=== PATIENT | female | born 1935 | race Hispanic/Latino ===

== ENCOUNTER 2020-08-05 09:16 | Emergency (ER) | payer OTHER ==
[2020-08-05] MEDS ORDERED: ONDANSETRON 4 MG/2 ML VIAL ONE (10:56)
[2020-08-05] MEDS ORDERED: NA CHLORIDE 0.9% 250 ML ONE (10:56)
[2020-08-05] MEDS ORDERED: DICYCLOMINE HCL 10 MG CAP ONE (10:57)
[2020-08-05] MEDS ORDERED: DIPHENOX/ATROP SULF 1 TAB PO ONE (10:57)
[2020-08-05 13:22] LABS: Absolute Lymphocytes (CBC) 1.7 K/uL (0.7-4.9); Basophils % 0.4 % (0-1.3); Lymphocytes % 14.3 % (15.3-44.8); MPV 8.6 fL (7.6-11.3); RBC Red Blood Cell Count 3.81 M/uL (3.86-4.86)
[2020-08-05 13:39] LABS: Albumin 3.2 g/dL (3.4-5.0); Bilirubin Direct 0.2 mg/dL (0-0.2); Bilirubin Total 0.6 mg/dL (0.2-1.0); Potassium 3.4 mmol/L (3.5-5.1); Protein, Total 6.7 g/dL (6.4-8.2)
--- NOTE | 2020-08-05 14:11 | EDPHYS ---
Physician Documentation [facility] Name: Pam Llamas Age: 84 yrs Sex: Female : 1935 Arrival Date: 08/05/2020 Time: 09:22 Bed 13 Private MD: ED Physician Luis Elder HPI: 08/06 10:06 This 84 yrs old Female presents to ER via Ambulatory with complaints of kdr Diarrhea, Vomiting. 10:06 The patient presents to the emergency department with nausea, that is mild, that is kdr moderate, vomiting, that is intermittent, diarrhea, that is intermittent, abdominal pain, of the abdomen diffusely, described as achy, crampy, and does not radiate. Onset: The symptoms/episode began/occurred suddenly, at 01:00. Possible causes: unknown. The symptoms are aggravated by nothing. The symptoms are alleviated by nothing. Associated signs and symptoms: Pertinent positives: abdominal pain, diarrhea, nausea, vomiting. Severity of symptoms: At their worst the symptoms were mild in the emergency department the symptoms have improved mildly. The patient has experienced similar episodes in the past, a few times. The patient has been recently seen by a physician: The patient is under care for Ovarian CA. Historical: - Allergies: 08/05 10:02 Coumadin; dm5 10:02 "adult aspirin"; dm5 - Home Meds: 10:02 levothyroxine 88 mcg tab 1 tab once daily [Active]; torsemide 20 mg oral tab 1 tab once dm5 daily [Active]; irbesartan 150 mg oral tab 1 tab once daily [Active]; Plavix 75 mg Oral tab 1 tab once daily [Active]; aspirin 81 mg Oral chew 1 tab once daily [Active]; nitrofurantoin macrocrystal 50 mg Oral cap 1 cap once daily [Active]; simvastatin 10 mg Oral tab 1 tab once daily [Active]; - PMHx: 10:02 Hypothyroidism; CVA; High Cholesterol; dm5 - PSHx: 10:02 Kidney stents; dm5 - Immunization history:: Adult Immunizations up to date. - Social history:: Smoking status: Patient denies any tobacco usage or history of. ROS: 08/06 10:06 Constitutional: Negative for fever, chills, and weight loss, Eyes: Negative for injury, kdr pain, redness, and discharge, ENT: Negative for injury, pain, and discharge, Neck: Negative for injury, pain, and swelling, Cardiovascular: Negative for chest pain, palpitations, and edema, Respiratory: Negative for shortness of breath, cough, wheezing, and pleuritic chest pain, Back: Negative for injury and pain, : Negative for injury, bleeding, discharge, and swelling, MS/Extremity: Negative for injury and deformity, Skin: Negative for injury, rash, and discoloration, Neuro: Negative for headache, weakness, numbness, tingling, and seizure activity. Psych: Negative for depression, anxiety, suicide ideation, homicidal ideation, and hallucinations, Allergy/Immunology: Negative for hives, rash, and allergies, Endocrine: Negative for neck swelling, polydipsia, polyuria, polyphagia, and marked weight changes, Hematologic/Lymphatic: Negative for swollen nodes, abnormal bleeding, and unusual bruising. Abdomen/GI: Positive for abdominal pain, nausea, vomiting, and diarrhea, Negative for abdominal distension, anorexia, dysphagia, hematemesis, black/tarry stool, rectal pain, rectal bleeding, bowel incontinence. Exam: 10:06 Constitutional: This is a well developed, well nourished patient who is awake, alert, kdr and in no acute distress. Head/Face: Normocephalic, atraumatic. Eyes: Pupils equal round and reactive to light, extra-ocular motions intact. Lids and lashes normal. Conjunctiva and sclera are non-icteric and not injected. Cornea within normal limits. Periorbital areas with no swelling, redness, or edema. Neck: Trachea midline, no thyromegaly or masses palpated, and no cervical lymphadenopathy. Supple, full range of motion without nuchal rigidity, or vertebral point tenderness. No Meningismus. Chest/axilla: Normal chest wall appearance and motion. Nontender with no deformity. No lesions are appreciated. Cardiovascular: Regular rate and rhythm with a normal S1 and S2. No gallops, murmurs, or rubs. Normal PMI, no JVD. No pulse deficits. Respiratory: Lungs have equal breath sounds bilaterally, clear to auscultation and percussion. No rales, rhonchi or wheezes noted. No increased work of breathing, no retractions or nasal flaring. Back: No spinal tenderness. No costovertebral tenderness. Full range of motion. Skin: Warm, dry with normal turgor. Normal color with no rashes, no lesions, and no evidence of cellulitis. MS/ Extremity: Pulses equal, no cyanosis. Neurovascular intact. Full, normal range of motion. Neuro: Awake and alert, GCS 15, oriented to person, place, time, and situation. Cranial nerves II-XII grossly intact. Motor strength 5/5 in all extremities. Sensory grossly intact. Cerebellar exam normal. Normal gait. Psych: Awake, alert, with orientation to person, place and time. Behavior, mood, and affect are within normal limits. 10:06 Abdomen/GI: Inspection: abdomen appears normal, Bowel sounds: diminished, in all quadrants, Palpation: soft, in all quadrants, mild abdominal tenderness, in the abdomen diffusely, mass, that is hard, that is nontender, of the right lower quadrant, rebound tenderness, is not appreciated, voluntary guarding, is not appreciated, tenderness to percussion, is not appreciated. Vital Signs: 08/05 09:52 BP 153 / 65; Pulse 71; Resp 18; Temp 97.7(O); Pulse Ox 100% on R/A; Weight 62.6 kg; dm5 Height 5 ft. 0 in. (152.40 cm); 11:27 BP 169 / 75; Pulse 69; Resp 16; Pulse Ox 100% ; bp 12:42 BP 115 / 82; Pulse 56; Resp 16; Pulse Ox 100% ; bp 13:26 BP 157 / 75; Pulse 60; Resp 16; Pulse Ox 100% ; bp 14:43 BP 143 / 73; Pulse 62; Resp 17; Temp 97.8; Pulse Ox 99% ; bp 09:52 Body Mass Index 26.95 (62.60 kg, 152.40 cm) dm5 MDM: 14:10 Patient medically screened. kdr 08/06 10:06 Data reviewed: vital signs, nurses notes, lab test result(s), radiologic studies. kdr Counseling: I had a detailed discussion with the patient and/or guardian regarding: the historical points, exam findings, and any diagnostic results supporting the discharge/admit diagnosis, lab results, radiology results, the need for outpatient follow up. 08/05 10:02 Order name: Basic Metabolic Panel; Complete Time: 14:10 kdr 08/05 10: Order name: CBC with Diff; Complete Time: 13:33 kdr 08/05 10:02 Order name: Hepatic Function; Complete Time: 14:10 kdr 08/05 10:02 Order name: Lipase; Complete Time: 14:10 kdr 08/05 11:04 Order name: Abdomen EDMS 08/05 10:02 Order name: IV Saline Lock; Complete Time: 10:29 kdr 08/05 10:02 Order name: Labs collected and sent; Complete Time: 10:29 kdr 08/05 10:38 Order name: Labs - recollect needed; Complete Time: 12:44 mt 08/05 12:57 Order name: Labs - recollect needed; Complete Time: 13:50 mt Administered Medications: 08/05 11:26 Drug: LoMOTIL 2 tabs Route: PO; bp 13:50 Follow up: Response: No adverse reaction; Marked relief of symptoms bp 11:26 Drug: Bentyl 20 mg Route: PO; bp 13:50 Follow up: Response: No adverse reaction; Pain is decreased bp 12:44 Drug: NS 0.9% 250 ml Route: IV; Rate: bolus; Site: right upper arm; bp 13:50 Follow up: IV Status: Completed infusion; IV Intake: 250ml bp 12:45 Drug: Zofran (Ondansetron) 4 mg Route: IVP; Site: right upper arm; bp 13:50 Follow up: Response: No adverse reaction; Marked relief of symptoms bp Disposition: 08/05/20 14:10 Discharged to Home. Impression: Diarrhea, unspecified, Nausea and vomiting, Renal Insufficiency. - Condition is Stable. - Discharge Instructions: Nausea and Vomiting, Adult, [id number], Hydronephrosis, Diarrhea, Adult, [id number]. - Prescriptions for Lomotil 2.5- 0.025 mg Oral Tablet - take 2 tablet by ORAL route once daily As needed; 20 tablet. Bentyl 20 mg Oral Tablet - take 1 tablet by ORAL route every 6 hours As needed; 20 tablet. - Medication Reconciliation Form, Thank You Letter form. - Follow up: Private Physician; When: 2 - 3 days; Reason: If symptoms return, Further diagnostic work-up, Recheck today's complaints, Continuance of care, Re-evaluation by your physician. - Problem is new. - Symptoms have improved. Signatures: Dispatcher [employer] [facility] Shelli Jade, RN RN dm5 Luis Elder MD MD kdr [place], [facility] Marcial Encarnacion, RN RN bp Corrections: (The following items were deleted from the chart) 11:04 10:03 Abdomen Pelvis W Con+CT.RAD.BRZ ordered. EDRI EDMS 14:11 14:10 08/05/2020 14:10 Discharged to Home. Impression: Diarrhea, unspecified; Nausea kdr and vomiting. Condition is Stable. Forms are Medication Reconciliation Form, Thank You Letter, Antibiotic Education, Prescription Opioid Use. Follow up: Private Physician; When: 2 - 3 days; Reason: If symptoms return, Further diagnostic work-up, Recheck today's complaints, Continuance of care, Re-evaluation by your physician. Problem is new. Symptoms have improved. kdr 14:46 14:11 08/05/2020 14:10 Discharged to Home. Impression: Diarrhea, unspecified; Nausea bp and vomiting; Renal Insufficiency. Condition is Stable. Forms are Medication Reconciliation Form, Thank You Letter, Antibiotic Education, Prescription Opioid Use. Follow up: Private Physician; When: 2 - 3 days; Reason: If symptoms return, Further diagnostic work-up, Recheck today's complaints, Continuance of care, Re-evaluation by your physician. Problem is new. Symptoms have improved. kdr
--- NOTE | 2020-08-05 14:11 | ER ---
Nurse's Notes [facility] Name: Pam Llamas Age: 84 yrs Sex: Female : 1935 Arrival Date: 08/05/2020 Time: 09:22 Bed 13 Private MD: Diagnosis: Diarrhea, unspecified;Nausea and vomiting;Renal Insufficiency Presentation: 08/05 09:52 Chief complaint: Patient states: abdominal pain and diarrhea that started at 0100 this dm5 morning. pt has history of ovarian ca. Coronavirus screen: Client denies travel out of the [place] in the last 14 days. diarrhea, nausea, Client presents with at least one sign or symptom that may indicate coronavirus-19. Standard/surgical mask placed on the client. Provider contacted for isolation considerations. Ebola Screen: Patient negative for fever greater than or equal to 101.5 degrees Fahrenheit, and additional compatible Ebola Virus Disease symptoms Patient denies exposure to infectious person. Patient denies travel to an Ebola-affected area in the 21 days before illness onset. No symptoms or risks identified at this time. Initial Sepsis Screen: Does the patient meet any 2 criteria? No. Patient's initial sepsis screen is negative. Does the patient have a suspected source of infection? Yes: Acute abdominal pain. Risk Assessment: Do you want to hurt yourself or someone else? Patient reports no desire to harm self or others. Onset of symptoms was August 05, 2020. 09:52 Method Of Arrival: Ambulatory dm5 09:52 Acuity: ELI 3 dm5 Triage Assessment: 10:00 General: Appears in no apparent distress. uncomfortable, Behavior is cooperative, bp appropriate for age, anxious. Pain: Complains of pain in abdomen. EENT: No deficits noted. Neuro: No deficits noted. Cardiovascular: No deficits noted. Respiratory: No deficits noted. GI: Reports diarrhea, nausea, vomiting. : No signs and/or symptoms were reported regarding the genitourinary system. Derm: No deficits noted. Musculoskeletal: No deficits noted. Historical: - Allergies: 10:02 Coumadin; dm5 10:02 "adult aspirin"; dm5 - Home Meds: 10:02 levothyroxine 88 mcg tab 1 tab once daily [Active]; torsemide 20 mg oral tab 1 tab once dm5 daily [Active]; irbesartan 150 mg oral tab 1 tab once daily [Active]; Plavix 75 mg Oral tab 1 tab once daily [Active]; aspirin 81 mg Oral chew 1 tab once daily [Active]; nitrofurantoin macrocrystal 50 mg Oral cap 1 cap once daily [Active]; simvastatin 10 mg Oral tab 1 tab once daily [Active]; - PMHx: 10:02 Hypothyroidism; CVA; High Cholesterol; dm5 - PSHx: 10:02 Kidney stents; dm5 - Immunization history:: Adult Immunizations up to date. - Social history:: Smoking status: Patient denies any tobacco usage or history of. Screenin:00 Abuse screen: Denies threats or abuse. Denies injuries from another. Nutritional bp screening: No deficits noted. Tuberculosis screening: No symptoms or risk factors identified. Fall Risk None identified. Assessment: 10:00 General: SEE TRIAGE NOTE. bp 10:25 Reassessment: PT TO CT. bp 11:07 Reassessment: PIV FAILED IN CT. PT REFUSING FURTHER VENIPUNCTURE. bp 11:28 Reassessment: PICC NURSE CONTACTED FOR PLACEMENT AFTER PT COUNSELED BY . bp 11:47 Reassessment: VASCULAR ACCESS NURSE AT B/S. bp 12:43 Reassessment: IVF INFUSING. ALL CURRENT ORDERS COMPLETED. bp 13:26 Reassessment: PHLEBOTOMY CONTACTED FOR 2ND REDRAW. bp 14:43 Reassessment: PT D/C HOME AMBULATORY WITH FAMILY, DX WITH DIARRHEA AND RENAL bp INSUFFICIENCY. Vital Signs: 09:52 BP 153 / 65; Pulse 71; Resp 18; Temp 97.7(O); Pulse Ox 100% on R/A; Weight 62.6 kg; dm5 Height 5 ft. 0 in. (152.40 cm); 11:27 BP 169 / 75; Pulse 69; Resp 16; Pulse Ox 100% ; bp 12:42 BP 115 / 82; Pulse 56; Resp 16; Pulse Ox 100% ; bp 13:26 BP 157 / 75; Pulse 60; Resp 16; Pulse Ox 100% ; bp 14:43 BP 143 / 73; Pulse 62; Resp 17; Temp 97.8; Pulse Ox 99% ; bp 09:52 Body Mass Index 26.95 (62.60 kg, 152.40 cm) dm5 ED Course: 09:22 Patient arrived in ED. ds1 09:34 Luis Elder MD is Attending Physician. kdr 09:55 Triage completed. dm5 10:00 Patient has correct armband on for positive identification. Bed in low position. Call bp light in reach. Side rails up X2. Adult w/ patient. 10:03 Arm band placed on right wrist. Patient placed in an exam room, on pulse oximetry. dm5 10:14 Marcial Encarnacion, RN is Primary Nurse. bp 10:24 Inserted saline lock: 20 gauge in right antecubital area, using aseptic technique. bp Blood collected. 11:06 Abdomen In Process Unspecified. EDMS 12:40 Inserted saline lock: 20 gauge in right upper arm, using aseptic technique. 10CM bp MIDLINE, FIRST ATTEMPT BY AG. 14:44 No provider procedures requiring assistance completed. bp 14:45 IV discontinued, intact, bleeding controlled, No redness/swelling at site. Pressure bp dressing applied. Administered Medications: 11:26 Drug: LoMOTIL 2 tabs Route: PO; bp 13:50 Follow up: Response: No adverse reaction; Marked relief of symptoms bp 11:26 Drug: Bentyl 20 mg Route: PO; bp 13:50 Follow up: Response: No adverse reaction; Pain is decreased bp 12:44 Drug: NS 0.9% 250 ml Route: IV; Rate: bolus; Site: right upper arm; bp 13:50 Follow up: IV Status: Completed infusion; IV Intake: 250ml bp 12:45 Drug: Zofran (Ondansetron) 4 mg Route: IVP; Site: right upper arm; bp 13:50 Follow up: Response: No adverse reaction; Marked relief of symptoms bp Intake: 13:50 IV: 250ml; Total: 250ml. bp Outcome: 14:10 Discharge ordered by . kdr 14:44 Discharged to home ambulatory, with family. bp 14:44 Condition: stable 14:44 Discharge instructions given to patient, family, Instructed on discharge instructions, follow up and referral plans. medication usage, Demonstrated understanding of instructions, follow-up care, medications, Prescriptions given X 2. 14:46 Patient left the ED. bp Signatures: Dispatcher [employer] EDMS Shelli Jade RN RN dm5 Luis Elder MD MD [facility] Sarah Cheung ds1 Marcial Encarnacion RN RN bp Poppy Brito 2 Corrections: (The following items were deleted from the chart) 11:04 10:29 To radiology for Abdomen Pelvis W Con+CT.RAD.BRZ. bp EDMS 14:46 12:40 Inserted saline lock: 20 gauge in right upper arm, using aseptic technique. Blood bp collected. 20g 10cm midline placement. first attempt ag2
[2020-08-05 15:38] VITALS: BP 143/73; TEMP 97.8; O2SAT 99
--- NOTE | 2020-08-06 11:17 | RAD REPORT ---
EXAM DESCRIPTION: CT - Abdomen Pelvis Wo Contrast - 08/05/2020 10:18 pm CLINICAL HISTORY: Diarrhea;Abd pain history of pelvic malignancy, history of left ureteral stent COMPARISON: No comparisons TECHNIQUE: Axial [address] imaging of the abdomen and pelvis was performed without IV contrast. No IV contrast was given because of allergy, abnormal renal function, patient refusal or physician re quest. No oral contrast administered. All CT scans are performed using dose optimization technique as appropriate and may include automated exposure control or mA/KV adjustment according to patient size. FINDINGS: No suspicious findings in the lung bases. The liver, spleen and pancreas show no suspicious findings on non-contrast imaging. Gallbladder and b iliary tree are also without suspicious finding. Severe left-side and moderately severe right-sided hydronephrosis and hydroureter present. Pigtail st ent is in place in the left collecting system. Cortical thinning of the left renal parenchyma noted. Function cannot be assessed in the noncontrast setting. No significant adrenal finding. Isodense raheem al masses and pyelonephritis cannot be excluded in the absence of IV contrast. Urinary bladder is mos tly contracted. No dilated bowel loops or bowel wall thickening. No free air, free fluid or pneumatosis. There is mi ld stranding in the presacral fatty tissues a large 16 centimeter diameter cystic mass fills the pelv is. There is a thickening or soft tissue mass component seen along the anterior inferior aspect. No o mental thickening. No abnormal lymphadenopathy identified. No suspicious bony findings. Arterial tree calcifications are present. IVC filter is in place. Report was delayed due to malfunctions of the shipping and receiving system. Images were reviewed and findings telephoned to the referring clinician at the time of the study. IMPRESSION: Large 16 centimeter mostly cystic mass filling the pelvis. It is believed the patient perez s a known ovarian malignancy. No prior imaging is available to establish growth or stability of the l arge cystic mass. Small amount of stranding is seen in the pelvic fat anterior to the sacrum. No omental thickening or abnormal lymphadenopathy. Moderately severe right-sided and severe left-sided hydronephrosis and hydroureter. There is atrophy of the left renal cortex. Pigtail stent is in the left collecting system. Full assessment is limited is the absence of IV contrast.
== END 2020-08-05 14:46 | disposition home or self-care (01) ==
LOC: ER 09:16
DX: R19.7 Diarrhea, unspecified (principal); N28.9 Disorder of kidney and ureter, unspecified; E78.00 Pure hypercholesterolemia, unspecified; E03.9 Hypothyroidism, unspecified; Z79.82 Long term (current) use of aspirin; Z79.01 Long term (current) use of anticoagulants; Z85.43 Personal history of malignant neoplasm of ovary; Z88.6 Allergy status to analgesic agent; Z88.8 Allergy status to other drugs, medicaments and biological substances
CPT/HCPCS: 96365; 85025; 80048; 36415; 82565; 80076; 83690; 74176; 96375; 99284; J7050; J2405

== ENCOUNTER 2020-11-21 17:35 | Emergency (ER) | payer OTHER ==
--- NOTE | 2020-11-21 18:24 | RAD REPORT ---
EXAM DESCRIPTION: CT - Head Brain Wo Cont - 11/21/2020 6:11 pm CLINICAL HISTORY: WEAKNESS, altered mental status, history of CVA COMPARISON: <Comparisons> TECHNIQUE: Axial 5 mm thick images of the head were obtained without IV contrast. All CT scans are performed using dose optimization technique as appropriate and may include automated exposure control or mA/KV adjustment according to patient size. FINDINGS: No intracranial hemorrhage, mass, edema or shift of mid-line structures. No acute cortical based infarction. No cortical edema or sulcal effacement. Encephalomalacia is present in the medial left occipital lobe from prior CVA. Atrophy changes are present, mild for age, with ventricles in pro portion. Mild to moderate chronic ischemic change present in the cerebral white matter. Arterial and physiologic calcifications are present. Mastoid air cells and visualized portions of the paranasal sinuses are clear. No acute bony findings. IMPRESSION: No hemorrhage, acute cortical based infarction or other acute intracranial finding. Atrophy, chronic ischemic changes and old left occipital lobe CVA changes are present. Chronic ischemic changes can mask nonhemorrhagic acute infarction. MR brain followup can be obtained if there is ongoing concern for acute ischemia.
[2020-11-21] MEDS ORDERED: NA CHLORIDE 0.9% 500 ML ONE ×2 (18:27→19:32)
[2020-11-21] MEDS ORDERED: FOLIC ACID 5 MG/ML VIAL ONE (18:28)
[2020-11-21 18:32] LABS: Absolute Lymphocytes (CBC) 2.5 K/uL (0.7-4.9); Basophils % 1.3 % (0-1.3); Hematocrit 37.2 % (36.0-45.0); Lymphocytes % 27.6 % (15.3-44.8); MPV 8.2 fL (7.6-11.3); RBC Red Blood Cell Count 4.25 M/uL (3.86-4.86)
--- NOTE | 2020-11-21 18:32 | RAD REPORT ---
EXAM DESCRIPTION: RAD - Chest Single View - 11/21/2020 6:09 pm CLINICAL HISTORY: AMS, shortness of breath COMPARISON: None TECHNIQUE: AP portable chest image was obtained 11/21/2020 6:09 pm . FINDINGS: Lung volumes are low. No peripheral mass or consolidation. Heart size and vasculature with in normal limits for portable imaging. Interstitial pattern is prominent throughout the lung sanches. Baseline pattern is unknown the patient . This is most likely chronic fibrosis. Minimal edema or infiltrate could be masked. Heart and vasculature are normal. No measurable pleural effusion and no pneumothorax. No acute bony a bnormality seen. No acute aortic findings suspected. IMPRESSION: Diffusely prominent interstitial markings throughout both lung sanches. No comparison is available. Fibrotic changes favored but minimal interstitial edema or infiltrate could be present. No peripheral mass or consolidation.
[2020-11-21 18:37] LABS: Protime INR 0.97
[2020-11-21 18:55] LABS: Potassium 3.8 mmol/L (3.5-5.1); Troponin (Emerg Dept Use Only) 0.03 ng/mL (0.0-0.045)
--- NOTE | 2020-11-21 18:58 | EDPHYS ---
Physician Documentation [facility] Name: Pam Llamas Age: 84 yrs Sex: Female : 1935 Arrival Date: 11/21/2020 Time: 17:39 Bed 6 Private MD: ED Physician Dex Currie HPI: 11/21 18:25 This 84 yrs old Female presents to ER via EMS with complaints of S/S of pm1 Possible Stroke. 18:25 The patient's problem is reported as weakness, in the right upper extremity, speech. pm1 Onset: The symptoms/episode began/occurred 1300. Patient last known normal at 1000 this AM. At 1300 she appeared groggy and difficult to arouse by . At 1600 she was slumped over to the right side in her chair while she was eating and had difficulty moving her right arm. She also had difficulty communicating at 1600. Historical: - Allergies: 17:44 "adult aspirin"; em 17:44 Coumadin; em - Home Meds: 18:05 Plavix 75 mg Oral tab 1 tab once daily [Active]; nitrofurantoin macrocrystal 50 mg Oral em cap 1 cap once daily [Active]; simvastatin 10 mg Oral tab 1 tab once daily [Active]; irbesartan 150 mg Oral tab 1 tab once daily [Active]; levothyroxine 88 mcg tab 1 tab once daily [Active]; torsemide 20 mg Oral tab 1 tab once daily [Active]; - PMHx: 17:44 CVA; High Cholesterol; Hypothyroidism; em - PSHx: 17:44 Kidney stents; Hysterectomy; em - Immunization history:: Adult Immunizations unknown. - Social history:: Smoking status: unknown. ROS: 18:25 Constitutional: Negative for fever, chills, and weight loss, Eyes: Negative for injury, pm1 pain, redness, and discharge, Cardiovascular: Negative for chest pain, palpitations, and edema, Respiratory: Negative for shortness of breath, cough, wheezing, and pleuritic chest pain, Abdomen/GI: Negative for abdominal pain, nausea, vomiting, diarrhea, and constipation, Back: Negative for injury and pain, : Negative for injury, bleeding, discharge, and swelling, MS/Extremity: Negative for injury and deformity, Skin: Negative for injury, rash, and discoloration. 18:25 Neuro: Positive for speech changes, weakness, of the right arm. Exam: 18:25 Constitutional: This is a well developed, well nourished patient who is awake, alert, pm1 and in no acute distress. Head/Face: Normocephalic, atraumatic. Eyes: Pupils equal round and reactive to light, extra-ocular motions intact. Lids and lashes normal. Conjunctiva and sclera are non-icteric and not injected. Cornea within normal limits. Periorbital areas with no swelling, redness, or edema. ENT: Nares patent. No nasal discharge, no septal abnormalities noted. Tympanic membranes are normal and external auditory canals are clear. Oropharynx with no redness, swelling, or masses, exudates, or evidence of obstruction, uvula midline. Mucous membranes moist. 18:25 Abdomen/GI: Soft, non-tender, with normal bowel sounds. No distension or tympany. No guarding or rebound. No evidence of tenderness throughout. Back: No spinal tenderness. No costovertebral tenderness. Full range of motion. Skin: Warm, dry with normal turgor. Normal color with no rashes, no lesions, and no evidence of cellulitis. MS/ Extremity: Pulses equal, no cyanosis. Neurovascular intact. Full, normal range of motion. 18:25 Cardiovascular: Rate: normal, Rhythm: irregular, Pulses: no pulse deficits are appreciated, Heart sounds: normal, Edema: is not appreciated. 18:25 Respiratory: Exam negative for acute changes, respiratory distress, shortness of breath, Breath sounds: are clear throughout. 18:25 Neuro: Orientation: to person, place, Cerebellar function: slow but able to perform bilaterally, Motor: moves all fours, drift present to RLE, Sensation: no obvious gross deficits. 18:40 Radiologist reports: CT head: No hemorrhage, acute cortical based infarction or other pm1 acute intracranial finding. Atrophy, chronic ischemic changes and old left occipital lobe CVA changes are present Vital Signs: 17:40 BP 179 / 104; Pulse 74; Resp 18; Temp 98.3(O); Pulse Ox 99% on R/A; Pain 0/10; em 19:53 BP 194 / 94; Pulse 76; Resp 18; Pulse Ox 100% on R/A; mg2 20:40 BP 195 / 93; Pulse 71; Resp 17; Pulse Ox 99% ; rr5 20:48 BP 200 / 110; rr5 22:00 BP 176 / 86; Pulse 64; Resp 18; Pulse Ox 100% on R/A; mg2 23:00 BP 177 / 89; Pulse 60; Resp 19; Pulse Ox 99% ; rr5 NIH Stroke Scale Scores: 17:50 NIHSS Score: 4 em 18:25 NIHSS Score: 4 pm1 20:25 NIHSS Score: 2 pm1 MDM: 17:53 Patient medically screened. pm1 17:54 Data reviewed: vital signs. pm1 17:54 ED course: Patient's last known normal at 1000 this AM. Patient is not a TPA candidate. pm1 18:52 Physician consultation: Austin Gomez MD was called at 18:50, was contacted at 18:52, pm1 regarding consult, patient's condition, after a discussion of the case, a recommendation for transfer for higher level of care is made, would like further tests performed, CTA, Transfer for MRI and possible intraarterial intervention within 24 hour treatment window. 20:07 Physician consultation: Neurologchristine Rivero was contacted at 20:09, regarding pm1 regarding transfer, to [facility]. patient's condition, and will see patient. 20:34 Physician consultation: MD Sis Tucker was contacted at 20:34, regarding pm1 regarding transfer, patient's condition, and will see patient. 20:40 ED course: patient's NIHSS score improved from 4 to 2. Patient's speech is more pm1 understandable but she has some expressive aphasia with describing objects. Patient is now able to read the sentences but had difficulty with saying huckleberry and transition advisor. 11/21 17:48 Order name: Basic Metabolic Panel; Complete Time: 18:58 pm1 11/21 17:48 Order name: CBC with Diff; Complete Time: 18:37 pm1 11/21 17:48 Order name: Protime (+inr); Complete Time: 18:42 pm1 11/21 17:48 Order name: Ptt, Activated; Complete Time: 18:42 pm1 11/21 17:48 Order name: Troponin (emerg Dept Use Only); Complete Time: 18:58 pm1 11/21 17:48 Order name: Urine Microscopic Only pm1 11/21 17:48 Order name: CT Head Brain wo Cont; Complete Time: 18:37 pm1 11/21 17:50 Order name: Chest Single View XRAY; Complete Time: 18:37 pm1 11/21 17:50 Order name: TSH pm1 11/21 17:51 Order name: Thyroid Stimulating Hormone; Complete Time: 19:21 EDMS 11/21 19:06 Order name: T4 Free; Complete Time: 19:21 EDMS 11/21 20:37 Order name: Urine Dipstick--Ancillary (enter results); Complete Time: 20:44 2 11/21 21:10 Order name: SARS-COV-2 RT PCR EDMS 11/21 17:48 Order name: EKG; Complete Time: 17:49 pm1 11/21 17:48 Order name: Accucheck; Complete Time: 17:59 pm1 11/21 17:48 Order name: Cardiac monitoring; Complete Time: 17:59 pm11/21 17:48 Order name: EKG - Nurse/Tech; Complete Time: 17:59 pm1 11/21 17:48 Order name: IV Saline Lock; Complete Time: 17:59 pm11/21 17:48 Order name: Labs collected and sent; Complete Time: 17:59 pm11/21 17:48 Order name: NPO; Complete Time: 17:59 pm11/21 17:48 Order name: O2 Per Protocol; Complete Time: 17:59 pm11/21 17:48 Order name: O2 Sat Monitoring; Complete Time: 17:59 pm11/21 18:52 Order name: CT Head Angio; Complete Time: 19:54 pm1 11/21 19:04 Order name: CT Neck Angio; Complete Time: 19:57 pm11/21 17:48 Order name: Stroke Swallow Screen; Complete Time: 18:29 pm1 11/21 17:48 Order name: Urine Dipstick-Ancillary (obtain specimen); Complete Time: 22:18 pm1 Administered Medications: 18:24 Drug: NS 0.9% 500 ml Route: IV; Rate: bolus; Site: left antecubital; em 19:52 Follow up: Response: No adverse reaction; IV Status: Completed infusion; IV Intake: mg2 500ml 18:24 Drug: foLIC Acid 1 mg Route: IVPB; Site: left antecubital; em 19:52 Follow up: Response: No adverse reaction; IV Status: Completed infusion mg2 19:54 Drug: NS 0.9% 500 ml Route: IV; Rate: bolus; Site: left antecubital; rr5 20:50 Follow up: Response: No adverse reaction; IV Status: Completed infusion; IV Intake: rr5 500ml 20:05 Drug: Labetalol 5 mg Route: IVP; Infused Over: 2 mins; Site: left antecubital; mg2 20:48 Follow up: Response: No adverse reaction; Blood pressure is unchanged rr5 22:18 Follow up: Response: No adverse reaction mg2 20:48 Drug: Labetalol 5 mg Route: IVP; Infused Over: 2 mins; Site: left antecubital; rr5 22:00 Follow up: Response: No adverse reaction; Blood pressure is lowered rr5 Disposition: 11/22 20:07 Co-signature as Attending Physician, Dex Currie MD. ma2 Disposition: 11/21/20 18:57 Transfer ordered to [facility]. Diagnosis is Cerebral infarction. - Reason for transfer: Higher level of care. - Accepting physician is [facility]. - Condition is Stable. - Problem is new. - Symptoms have improved. NIH Stroke Scale - NIH Stroke Score Date: 11/21/2020 Time: 17:50 Total Score = 4 1a. Level of Consciousness (LOC) - 0(Alert) 1b. Level of Consciousness (LOC) (Year \\T\\ Age) - 1(One) 1c. LOC Commands (Open \\T\\ Closes Eyes/Wellness Nurse Rn) - 0(Both) 2. Best Gaze (Lateral Gaze Paresis) - 0(Normal) 3. Visual Field Loss - 0(No visual loss) 4. Facial Palsy - 0(Normal) 5a. Left Arm: Motor (10-second hold) - 0(No drift) 5b. Right Arm: Motor (10-second hold) - 0(No drift) 6a. Left Leg: Motor (5-second hold - always test supine) - 0(No drift) 6b. Right Leg: Motor (5-second hold - always test supine) - 1(Drift) 7. Limb Ataxia (finger/nose \\T\\ heel/velez - test with eyes open) - 0(Absent) 8. Sensory Loss (pinprick arms/legs/face) - 0(Normal) 9. Best Language: Aphasia (description/naming/reading) - 1(Mild to moderate aphasia) 10. Dysarthria (speech clarity - read or repeat words) - 1(Mild to Moderate) 11. Extinction and Inattention (visual/tactile/auditory/spatial/personal) - 0(No abnormality) Initials: em NIH Stroke Scale - NIH Stroke Score Date: 11/21/2020 Time: 18:25 Total Score = 4 1a. Level of Consciousness (LOC) - 0(Alert) 1b. Level of Consciousness (LOC) (Year \\T\\ Age) - 1(One) 1c. LOC Commands (Open \\T\\ Closes Eyes/Wellness Nurse Rn) - 0(Both) 2. Best Gaze (Lateral Gaze Paresis) - 0(Normal) 3. Visual Field Loss - 0(No visual loss) 4. Facial Palsy - 0(Normal) 5a. Left Arm: Motor (10-second hold) - 0(No drift) 5b. Right Arm: Motor (10-second hold) - 0(No drift) 6a. Left Leg: Motor (5-second hold - always test supine) - 0(No drift) 6b. Right Leg: Motor (5-second hold - always test supine) - 1(Drift) 7. Limb Ataxia (finger/nose \\T\\ heel/velez - test with eyes open) - 0(Absent) 8. Sensory Loss (pinprick arms/legs/face) - 0(Normal) 9. Best Language: Aphasia (description/naming/reading) - 1(Mild to moderate aphasia) 10. Dysarthria (speech clarity - read or repeat words) - 1(Mild to Moderate) 11. Extinction and Inattention (visual/tactile/auditory/spatial/personal) - 0(No abnormality) Initials: pm1 NIH Stroke Scale - NIH Stroke Score Date: 11/21/2020 Time: 20:25 Total Score = 2 1a. Level of Consciousness (LOC) - 0(Alert) 1b. Level of Consciousness (LOC) (Year \\T\\ Age) - 0(Both) 1c. LOC Commands (Open \\T\\ Closes Eyes/Wellness Nurse Rn) - 0(Both) 2. Best Gaze (Lateral Gaze Paresis) - 0(Normal) 3. Visual Field Loss - 0(No visual loss) 4. Facial Palsy - 0(Normal) 5a. Left Arm: Motor (10-second hold) - 0(No drift) 5b. Right Arm: Motor (10-second hold) - 0(No drift) 6a. Left Leg: Motor (5-second hold - always test supine) - 0(No drift) 6b. Right Leg: Motor (5-second hold - always test supine) - 0(No drift) 7. Limb Ataxia (finger/nose \\T\\ heel/velez - test with eyes open) - 0(Absent) 8. Sensory Loss (pinprick arms/legs/face) - 0(Normal) 9. Best Language: Aphasia (description/naming/reading) - 1(Mild to moderate aphasia) 10. Dysarthria (speech clarity - read or repeat words) - 1(Mild to Moderate) 11. Extinction and Inattention (visual/tactile/auditory/spatial/personal) - 0(No abnormality) Initials: pm1 Signatures: Dispatcher [employer] EDMS Vince Velasquez, RN RN em Isacc Oden NP [employer] PIPE FITTER pm1 Dex Currie MD MD ma2 Mitchell Moss RN RN [facility] Mathew Lopez RN RN [email or web address] Corrections: (The following items were deleted from the chart) 11/21 20:10 17:49 CORONAVIRUS+MR.LAB.BRZ ordered. [facility] EDMO 23:00 18:57 11/21/2020 18:[address] [facility]. Diagnosis is Cerebral infarction. Reason for transfer: Higher level of care. Accepting physician is [facility]. Condition is Stable. Problem is new. Symptoms have improved. pm1
--- NOTE | 2020-11-21 18:58 | ER ---
Nurse's Notes [facility] Name: Pam Llamas Age: 84 yrs Sex: Female : 1935 Arrival Date: 11/21/2020 Time: 17:39 Bed 6 Private MD: Diagnosis: Cerebral infarction Presentation: 11/21 17:40 Chief complaint: EMS states: called out for unable to communicate stated by , em onset was sometime this morning, hx of CVA x 2, BGL 76, pt able to mumble her name and birthday, pt drowsy on arrival. Coronavirus screen: Client denies travel out of the [place] in the last 14 days. Ebola Screen: Patient negative for fever greater than or equal to 101.5 degrees Fahrenheit, and additional compatible Ebola Virus Disease symptoms Patient denies exposure to infectious person. Patient denies travel to an Ebola-affected area in the 21 days before illness onset. No symptoms or risks identified at this time. An acute neurological deficit is present. The charge nurse has been notified. The patient has been moved to a treatment area. Pre-hospital glucose is not applicable to this patient. Initial Sepsis Screen: Does the patient meet any 2 criteria? No. Patient's initial sepsis screen is negative. Does the patient have a suspected source of infection? No. Patient's initial sepsis screen is negative. Risk Assessment: Do you want to hurt yourself or someone else? Patient reports no desire to harm self or others. Onset of symptoms was November 21, 2020. 17:40 Method Of Arrival: EMS: [facility] em 17:40 Acuity: ELI 2 em Triage Assessment: 17:44 The onset of the patients symptoms was more than six hours ago. em Historical: - Allergies: 17:44 "adult aspirin"; em 17:44 Coumadin; em - Home Meds: 18:05 Plavix 75 mg Oral tab 1 tab once daily [Active]; nitrofurantoin macrocrystal 50 mg Oral em cap 1 cap once daily [Active]; simvastatin 10 mg Oral tab 1 tab once daily [Active]; irbesartan 150 mg Oral tab 1 tab once daily [Active]; levothyroxine 88 mcg tab 1 tab once daily [Active]; torsemide 20 mg Oral tab 1 tab once daily [Active]; - PMHx: 17:44 CVA; High Cholesterol; Hypothyroidism; em - PSHx: 17:44 Kidney stents; Hysterectomy; em - Immunization history:: Adult Immunizations unknown. - Social history:: Smoking status: unknown. Screenin:44 Abuse screen: Denies threats or abuse. Nutritional screening: No deficits noted. em Tuberculosis screening: No symptoms or risk factors identified. Fall Risk Secondary diagnosis (15 points) CVA. Assessment: 17:45 VAN Scoring: Arm Drift: Patients demonstrates NO arm weakness. Patient is VAN Negative. em Patient has been NPO before screening. The patient is alert, and able to follow commands. The patient exhibits slurred or garbled speech. Provider notified of the indication for Speech Therapy consult. The patient is exhibiting difficulty speaking. Provider notified of the indication for Speech Therapy consult. The patient does not exhibit difficulty understanding words. The patient is able to swallow own secretions with no drooling or need for suction. Patient tolerated one teaspoon of water. No drooling, immediate coughing, gurgling, or clearing of the throat was noted. The patient tolerated 90mL of water. No drooling, immediate coughing, gurgling, or clearing of the throat was noted. The patient passed the bedside swallow screening. Oral medications may be given as ordered. Contact Physician for further diet orders. Provider notified of bedside swallow screening results: Dex Currie MD. T-PA (Activase) Screening: Contraindications: Patient reports onset of signs and symptoms of stroke greater than 6 hours ago: Yes. 17:45 General: Appears in no apparent distress. comfortable, Behavior is drowsy. Pain: Denies em pain. Neuro: Level of Consciousness is obeys commands, Oriented to person, place, Mechanical Development Engineer are equal bilaterally Moves all extremities. Weakness in right leg(s) Speech is slurred, Facial symmetry appears normal, Intact. Cardiovascular: Capillary refill < 3 seconds Patient's skin is warm and dry. Respiratory: Airway is patent Respiratory effort is even, unlabored, Respiratory pattern is regular, symmetrical. GI: Patient currently denies nausea. Derm: Skin is intact, is healthy with good turgor, Skin is pink, warm \\T\\ dry. Musculoskeletal: Capillary refill < 3 seconds, Range of motion: intact in all extremities. 18:30 Reassessment: Patient appears in no apparent distress at this time. Patient and/or em family updated on plan of care and expected duration. Pain level reassessed. reports having "bladder stents," provider notified, will hold off on the UA cath., pt drowsy, easily awaken with verbal stimuli, skin pink warm and dry, respirations even and unlabored, pt AxO x [address] 19:21 Reassessment: patient in CT now. mg2 19:57 General: Appears in no apparent distress. comfortable, Behavior is calm, cooperative, rr5 drowsy. Neuro: Level of Consciousness is obeys commands, Oriented to person, place, Mechanical Development Engineer are equal bilaterally Moves all extremities. Weakness in right leg(s) Speech is slurred, Facial symmetry appears normal. Cardiovascular: Capillary refill < 3 seconds Patient's skin is warm and dry. Respiratory: Airway is patent Respiratory effort is even, unlabored, Respiratory pattern is regular, symmetrical. GI: No signs and/or symptoms were reported involving the gastrointestinal system. : No signs and/or symptoms were reported regarding the genitourinary system. EENT: No signs and/or symptoms were reported regarding the EENT system. Derm: Skin is intact, is healthy with good turgor, Skin is pink, warm \\T\\ dry. Musculoskeletal: Capillary refill < 3 seconds. 20:07 Reassessment: [phone] michelle . rr5 21:00 Reassessment: Patient appears in no apparent distress at this time. Patient is alert, rr5 oriented x 3, equal unlabored respirations, skin warm/dry/pink. awaiting for [facility] availability of room. 22:00 Reassessment: Patient appears in no apparent distress at this time. Patient and/or mg2 family updated on plan of care and expected duration. Pain level reassessed. Patient is alert, oriented x 3, equal unlabored respirations, skin warm/dry/pink. 22:30 Reassessment: report given to ELLE Marrero of [facility]. mg2 23:00 Reassessment: Patient appears in no apparent distress at this time. Patient is alert, rr5 oriented x 3, equal unlabored respirations, skin warm/dry/pink. report given to EMS awake alert vital signs taken and recorded. Vital Signs: 17:40 BP 179 / 104; Pulse 74; Resp 18; Temp 98.3(O); Pulse Ox 99% on R/A; Pain 0/10; em 19:53 BP 194 / 94; Pulse 76; Resp 18; Pulse Ox 100% on R/A; mg2 20:40 BP 195 / 93; Pulse 71; Resp 17; Pulse Ox 99% ; rr5 20:48 BP 200 / 110; rr5 22:00 BP 176 / 86; Pulse 64; Resp 18; Pulse Ox 100% on R/A; mg2 23:00 BP 177 / 89; Pulse 60; Resp 19; Pulse Ox 99% ; rr5 NIH Stroke Scale Scores: 17:50 NIHSS Score: 4 em 18:25 NIHSS Score: 4 pm1 20:25 NIHSS Score: 2 pm1 ED Course: 17:39 Patient arrived in ED. em 17:40 Maintain EMS IV. Dressing intact. Good blood return noted. Site clean \\T\\ dry. Gauge \\T\\ em site: 20 LAC. 17:43 Triage completed. em 17:45 Isacc Oden NP is PHCP. pm1 17:45 Dex Currie MD is Attending Physician. pm1 17:45 Patient has correct armband on for positive identification. Placed in gown. Bed in low em position. Adult w/ patient. Pulse ox on. NIBP on. 17:58 Vince Velasquez, RN is Primary Nurse. em 17:59 Arm band placed on. em 18:09 Chest Single View XRAY In Process Unspecified. EDMS 18:11 CT Head Brain wo Cont In Process Unspecified. EDMS 19:20 CT Head Angio In Process Unspecified. EDMS 19:20 CT Neck Angio In Process Unspecified. EDMS 19:42 Primary Nurse role handed off by Vince Velasquez, RN mw2 19:51 No provider procedures requiring assistance completed. COVID swab sent to lab. Patient mg2 transferred, IV remains in place. 19:53 Mathew Lopez, RN is Primary Nurse. rr5 19:58 initiated a transfer with Mini Joseph from [facility]. mw2 19:59 Doc to Doc with the Neuro specialist from [facility]. mw2 20:28 Doc to Doc with the hospitalist from [facility]. mw2 21:[address] [facility] spoke to Karla Franco to get a status update on the mw2 transfer. She stated " it looks like the patient has been accepted we are just waiting for a bed available.". 22:12 administrative approval given by Mini Joseph/ patient has been accepted to [address] bed 2210/ Dr. Chaves has accepted the patient in transfer/ report to be called to [phone]. 22:32 called [facility] to transfer patient. [facility] Administered Medications: 18:24 Drug: NS 0.9% 500 ml Route: IV; Rate: bolus; Site: left antecubital; em 19:52 Follow up: Response: No adverse reaction; IV Status: Completed infusion; IV Intake: mg2 500ml 18:24 Drug: foLIC Acid 1 mg Route: IVPB; Site: left antecubital; em 19:52 Follow up: Response: No adverse reaction; IV Status: Completed infusion mg2 19:54 Drug: NS 0.9% 500 ml Route: IV; Rate: bolus; Site: left antecubital; rr5 20:50 Follow up: Response: No adverse reaction; IV Status: Completed infusion; IV Intake: rr5 500ml 20:05 Drug: Labetalol 5 mg Route: IVP; Infused Over: 2 mins; Site: left antecubital; mg2 20:48 Follow up: Response: No adverse reaction; Blood pressure is unchanged rr5 22:18 Follow up: Response: No adverse reaction mg2 20:48 Drug: Labetalol 5 mg Route: IVP; Infused Over: 2 mins; Site: left antecubital; rr5 22:00 Follow up: Response: No adverse reaction; Blood pressure is lowered rr5 Intake: 19:52 IV: 500ml; Total: 500ml. mg2 20:50 IV: 500ml; Total: 1000ml. rr5 Outcome: 18:57 ER care complete, transfer ordered by . pm1 22:55 Transferred by ground EMS to [facility], Transfer form completed. rr5 22:55 Condition: stable 22:55 Instructed on the need for transfer. 23:00 Patient left the ED. rr5 NIH Stroke Scale - NIH Stroke Score Date: 11/21/2020 Time: 17:50 Total Score = 4 1a. Level of Consciousness (LOC) - 0(Alert) 1b. Level of Consciousness (LOC) (Year \\T\\ Age) - 1(One) 1c. LOC Commands (Open \\T\\ Closes Eyes/Maintenance And Repair Worker) - 0(Both) 2. Best Gaze (Lateral Gaze Paresis) - 0(Normal) 3. Visual Field Loss - 0(No visual loss) 4. Facial Palsy - 0(Normal) 5a. Left Arm: Motor (10-second hold) - 0(No drift) 5b. Right Arm: Motor (10-second hold) - 0(No drift) 6a. Left Leg: Motor (5-second hold - always test supine) - 0(No drift) 6b. Right Leg: Motor (5-second hold - always test supine) - 1(Drift) 7. Limb Ataxia (finger/nose \\T\\ heel/velez - test with eyes open) - 0(Absent) 8. Sensory Loss (pinprick arms/legs/face) - 0(Normal) 9. Best Language: Aphasia (description/naming/reading) - 1(Mild to moderate aphasia) 10. Dysarthria (speech clarity - read or repeat words) - 1(Mild to Moderate) 11. Extinction and Inattention (visual/tactile/auditory/spatial/personal) - 0(No abnormality) Initials: NIH Stroke Scale - NIH Stroke Score Date: 11/21/2020 Time: 18:25 Total Score = 4 1a. Level of Consciousness (LOC) - 0(Alert) 1b. Level of Consciousness (LOC) (Year \\T\\ Age) - 1(One) 1c. LOC Commands (Open \\T\\ Closes Eyes/Maintenance And Repair Worker) - 0(Both) 2. Best Gaze (Lateral Gaze Paresis) - 0(Normal) 3. Visual Field Loss - 0(No visual loss) 4. Facial Palsy - 0(Normal) 5a. Left Arm: Motor (10-second hold) - 0(No drift) 5b. Right Arm: Motor (10-second hold) - 0(No drift) 6a. Left Leg: Motor (5-second hold - always test supine) - 0(No drift) 6b. Right Leg: Motor (5-second hold - always test supine) - 1(Drift) 7. Limb Ataxia (finger/nose \\T\\ heel/velez - test with eyes open) - 0(Absent) 8. Sensory Loss (pinprick arms/legs/face) - 0(Normal) 9. Best Language: Aphasia (description/naming/reading) - 1(Mild to moderate aphasia) 10. Dysarthria (speech clarity - read or repeat words) - 1(Mild to Moderate) 11. Extinction and Inattention (visual/tactile/auditory/spatial/personal) - 0(No abnormality) Initials: pm1 NIH Stroke Scale - NIH Stroke Score Date: 11/21/2020 Time: 20:25 Total Score = 2 1a. Level of Consciousness (LOC) - 0(Alert) 1b. Level of Consciousness (LOC) (Year \\T\\ Age) - 0(Both) 1c. LOC Commands (Open \\T\\ Closes Eyes/Maintenance And Repair Worker) - 0(Both) 2. Best Gaze (Lateral Gaze Paresis) - 0(Normal) 3. Visual Field Loss - 0(No visual loss) 4. Facial Palsy - 0(Normal) 5a. Left Arm: Motor (10-second hold) - 0(No drift) 5b. Right Arm: Motor (10-second hold) - 0(No drift) 6a. Left Leg: Motor (5-second hold - always test supine) - 0(No drift) 6b. Right Leg: Motor (5-second hold - always test supine) - 0(No drift) 7. Limb Ataxia (finger/nose \\T\\ heel/velez - test with eyes open) - 0(Absent) 8. Sensory Loss (pinprick arms/legs/face) - 0(Normal) 9. Best Language: Aphasia (description/naming/reading) - 1(Mild to moderate aphasia) 10. Dysarthria (speech clarity - read or repeat words) - 1(Mild to Moderate) 11. Extinction and Inattention (visual/tactile/auditory/spatial/personal) - 0(No abnormality) Initials: pm1 Signatures: Dispatcher [employer] EDVince Abreu RN RN em Isacc Oden, CABLE MECHANIC CABLE MECHANIC pm1 Fanny Morgan mw2 Mitchell Moss RN RN mg2 Mathew Lopez RN RN rr5 Corrections: (The following items were deleted from the chart) 19:21 17:45 Neuro: Level of Consciousness is awake, alert, obeys commands, Oriented em to person, place, time, situation, Appropriate for age Mechanical Development Engineer are equal bilaterally Moves all extremities. Weakness in right leg(s) Speech is slurred, Facial symmetry appears normal, Intact em 22:14 19:58 initiated a transfer with Mini from [place] [id number]
[2020-11-21 19:06] LABS: Thyroid Stimulating Hormone 86.5 uIU/mL (0.360-3.740)
--- NOTE | 2020-11-21 19:52 | RAD REPORT ---
EXAM DESCRIPTION: CT - Head angio - 11/21/2020 7:20 pm CLINICAL HISTORY: SLURRED SPEECH TECHNIQUE: During dynamic enhancement using nonionic IV contrast, axial 1 millimeter thick images of the head were obtained. Sagittal and axial reconstruction images were generated using MIP technique and reviewed. All CT scans are performed using dose optimization technique as appropriate and may include automated exposure control or mA/KV adjustment according to patient size. FINDINGS: No aneurysm or vascular malformation identified. Major venous sinuses are patent. Prominent atherosclerotic calcifications are present in the cavernous portion of each internal caroti d artery. This does not appear to cause a significant degree of luminal narrowing. Anterior communica ting artery is present. Middle cerebral artery distribution show no named branch occlusion or signifi cant disease. Small right-side posterior communicating artery. Right vertebral artery is dominant. Dense calcifications cause significant stenosis of the distal lef t vertebral artery. The left vertebral artery appears to terminate at the posteroinferior cerebellar artery. Basilar artery is small and shows significant luminal narrowing. Neither posterior communica ting artery or distal branches are well visualized. This is not unexpected given the old left occipit al lobe CVA changes seen on the earlier CT study. Patient may have collateralized pathways that suppl y some of the right posterior cerebral artery distribution. IMPRESSION: Significant atherosclerotic change and luminal narrowing in the left vertebral artery, basilar artery and even greater luminal narrowing in both posterior cerebral artery distributions. Significant atherosclerotic calcifications in the cavernous portions of the internal carotid arteries without significant luminal narrowing.
--- NOTE | 2020-11-21 19:55 | RAD REPORT ---
EXAM DESCRIPTION: CT - Neck Angio - 11/21/2020 7:20 pm CLINICAL HISTORY: CVA TECHNIQUE: During dynamic enhancement using nonionic IV contrast, axial 2 mm thick images of the nec k were obtained. Sagittal and axial reconstruction images were generated using MIP technique and revi ewed. All CT scans are performed using dose optimization technique as appropriate and may include automated exposure control or mA/KV adjustment according to patient size. COMPARISON: CT head same date, CT angio head same date FINDINGS: No aneurysm or vascular malformation identified. No carotid or vertebral dissection. No aortic arch or great vessel origin abnormality seen. Vertebral artery origins unremarkable as well . No stenosis, vasculitis or other significant carotid artery finding. Bilateral carotid bulb calcifi cations are present without luminal narrowing. Calcifications without luminal narrowing seen in each vertebral artery between origin and skullbase. IMPRESSION: Atherosclerotic calcifications are present but no significant luminal narrowing in the cervical portions of the carotid or vertebral distributions.
[2020-11-21] MEDS ORDERED: LABETALOL 20 MG/4ML SYRINGE IV ONE (20:14)
[2020-11-21 20:40] LABS: Urine Blood 1+ (NEG); Urine Glucose NEGATIVE (NEG); Urine Protein NEGATIVE (NEG); Urine Specific Gravity >1.030 (1.005-1.030)
[2020-11-21 20:58] LABS: Urine Bacteria <20 /HPF (<20); Urine RBC <5 /HPF (NONE SEEN)
[2020-11-21 23:31] VITALS: TEMP 98.3
[2020-11-21 23:36] VITALS: BP 176/86; O2SAT 100
== END 2020-11-21 23:00 | disposition short-term general hospital (02) ==
LOC: ER 17:35
DX: I63.9 Cerebral infarction, unspecified (principal); R29.704 NIHSS score 4; Z20.822 Contact with and (suspected) exposure to COVID-19; E78.00 Pure hypercholesterolemia, unspecified; E03.9 Hypothyroidism, unspecified; Z79.01 Long term (current) use of anticoagulants; Z88.6 Allergy status to analgesic agent; Z88.8 Allergy status to other drugs, medicaments and biological substances; Z86.73 Personal history of transient ischemic attack (TIA), and cerebral infarction without residual deficits
CPT/HCPCS: 96365; 96361; 93005; 85025; 80048; 36415; 85610; 85730; 84443; 84484; 84439; 70450; 70496; 70498; 71045; 96375; 99285; U0003; Q9967; J7040 ×2; 81003; 81015

== ENCOUNTER 2020-12-26 17:03 | Emergency (ER) | payer OTHER ==
--- OUTSIDE RECORDS SUMMARY | 2020-12-26 17:07 | XMS REPORT | Clinical Summary ---
:1935 Author Organization [facility] Address [address] [place] [address] Care Team Providers Name Role Phone Unavailable Primary Care Provider Unavailable Allergies Active Allergy Reactions Severity Noted Date Comments Aspirin (Bulk) 11/22/2020 Adult ASA Warfarin 11/22/2020 Medications Medication Sig Dispensed Refills Start Date End Date Status levothyroxine Take 88 mcg 0 Acti ve (SYNTHROID, by mouth LEVOTHROID) 88 MCG Every tabletIndications: morning on hypothyroidism an empty stomach. clopidogreL Take 75 mg 0 Active (PLAVIX) 75 mg by mouth tablet daily. amLODIPine Take 1 0 11/28/2020 Active (NORVASC) 10 MG tablet (10 2 tablet mg total) by mouth daily. aspirin 81 MG Take 1 0 11/28/2020 Activ e chewable tablet tablet (81 2 mg total) by mouth daily. atorvastatin Take 1 0 11/28/2020 Active (LIPITOR) 80 MG tablet (80 2 tablet mg total) by mouth nightly. cyanocobalamin, Take 1 0 11/28/2020 Act ana lilia vitamin B-12, 1000 tablet 2 MCG tablet (1,000 mcg total) by mouth daily. senna-docusate Take 1 0 11/28/2020 Acti ve (SENOKOT S) 8.6-50 tablet by 2 mg per tablet mouth 2 (two) times daily. torsemide (DEMADEX) Take 20 mg 0 Discontinued 20 MG tablet by mouth 1 (Stop T aking at daily. Discharge) irbesartan (AVAPRO) Take 150 mg 0 11/28/19 2 Discontinued 150 MG tablet by mouth 1 (Stop Taking at nightly. Discharge) nitrofurantoin Take 50 mg 0 Disc ontinued (MACRODANTIN) 50 MG by mouth 4 1 (Stop Taking at capsule (four) times Dischar ge) daily. simvastatin (ZOCOR) Take 10 mg 0 Discontinued 10 MG by mouth 1 (Stop Taki ng at tabletIndications: nightly. D ischarge) hyperlipidemia levoFLOXacin Take 1 8 tablet 0 11/28/2020 d (LEVAQUIN) 250 MG tablet (250 1 tablet mg total) by mouth daily for 8 days. 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 Never 11/22/2020 How many drinks containing alcohol do you have on a typical Not asked day when you are drinking? How often do you have six or more drinks on one occasion? No t asked Sex Assigned at Date Recorded Not on file Last Filed Vital Signs Vital Sign Reading Time Taken Comments Blood Pressure 145/75 11/28/2020 7:10 AM [facility]OOK C[facility]TER Pulse 84 11/28/2020 7:10 AM BOOK C[facility]TER Temperature 36.4 C (97.5 F) 11/28/2020 7:10 AM BOOK CUTTER Respiratory Rate 18 11/28/2020 7:10 AM BOOK CUTTER Oxygen Saturation 96% 11/28/2020 7:10 AM BOOK CUTTER Inhaled Oxygen Concentration - - Weight 62.6 kg (138 lb) 11/22/2020 4:03 AM BOOK CUTTER Height 152.4 cm (5') 11/22/2020 4:03 AM BOOK CUTTER Body Mass Index 26.95 11/22/2020 4:03 AM BOOK CUTTER Plan of Treatment Health Maintenance Due Date Last Done Comments DTAP/TDAP/TD VACCINES (1 - Tdap) 1954 SHINGLES VACCINES (1 of 2) 1985 PNEUMOCOCCAL 65+ YRS (1 of 1 - [id number]) 2000 INFLUENZA VACCINE (#1) 2020 DEPRESSION SCREENING (12+) 11/05/2020 Medicare IPPE (WELCOME TO MEDICARE) 11/05/2020 Procedures Procedure Name Priority Date/Time Associated Comments Diagnosis POCT-GLUCOSE METER Routine 11/28/2020 7:43 Resul ts for this AM [facility]OOK C[facility]TER procedure are i n the results section. CBC W/PLT COUNT & Routine 11/28/2020 5:56 Result s for this AUTO DIFFERENTIAL AM [facility] procedure are in the results section. BASIC METABOLIC PANEL Routine 11/28/2020 5:56 Re sults for this (7) AM [facility] procedure are i n the results section. CBC W/PLT COUNT & Routine 11/28/2020 5:56 Result s for this AUTO DIFFERENTIAL AM [facility] C[facility]TER procedure are in the results section. POCT-GLUCOSE METER Routine 11/27/2020 9:23 Resul ts for this PM BOOK CUTTER procedure are i n the results section. US RENAL COMPLETE Routine 11/27/2020 4:25 Result s for this PM [facility]OOK CUTTER procedure are i n the results section. POCT-GLUCOSE METER Routine 11/27/2020 11:47 Resul ts for this AM [facility] C[facility]TER procedure are i n the results section. POCT-GLUCOSE METER Routine 11/27/2020 9:07 Resul ts for this AM [facility] C[facility] procedure are i n the results section. CBC W/PLT COUNT & Routine 11/27/2020 6:31 Result s for this AUTO DIFFERENTIAL AM [facility] C[facility] procedure are in the results section. CBC W/PLT COUNT & Routine 11/27/2020 6:31 Result s for this AUTO DIFFERENTIAL AM [facility] C[facility]TER procedure are in the results section. BASIC METABOLIC PANEL Routine 11/27/2020 4:34 Re sults for this (7) AM [facility] procedure are i n the results section. POCT-GLUCOSE METER Routine 11/26/2020 9:32 Resul ts for this PM [facility]OOK CUTTER procedure are i n the results section. POCT-GLUCOSE METER Routine 11/26/2020 5:26 Resul ts for this PM [facility]OOK C[facility]TER procedure are i n the results section. POCT-GLUCOSE METER Routine 11/26/2020 12:49 Resul ts for this PM [facility] C[facility]TER procedure are i n the results section. URINALYSIS W/ REFLEX Routine 11/26/2020 9:59 Res ults for this URINE CULTURE AM [facility]OOK C[facility]TER procedure are in the results section. URINE CULTURE Routine 11/26/2020 9:59 Results fo r this AM [facility] procedure are i n the results section. POCT-GLUCOSE METER Routine 11/26/2020 7:35 Resul ts for this AM [facility] procedure are i n the results section. CBC W/PLT COUNT & Routine 11/26/2020 3:40 Result s for this AUTO DIFFERENTIAL AM [facility] procedure are in the results section. BASIC METABOLIC PANEL Routine 11/26/2020 3:40 Re sults for this (7) AM [facility] procedure are i n the results section. CBC W/PLT COUNT & Routine 11/26/2020 3:40 Result s for this AUTO DIFFERENTIAL AM [facility] procedure are in the results section. POCT-GLUCOSE METER Routine 11/25/2020 9:43 Resul ts for this PM [facility]OOK C[facility] procedure are i n the results section. URINALYSIS WITHOUT Routine 11/25/2020 5:51 Resul ts for this MICROSCOPIC PM [facility]OOK C[facility]TER procedure are i n the results section. POCT-GLUCOSE METER Routine 11/25/2020 5:48 Resul ts for this PM [facility] C[facility] procedure are i n the results section. US RENAL COMPLETE Routine 11/25/2020 3:16 Result s for this PM [facility] C[facility] procedure are i n the results section. POCT-GLUCOSE METER Routine 11/25/2020 11:43 Resul ts for this AM [facility] procedure are i n the results section. POCT-GLUCOSE METER Routine 11/25/2020 7:46 Resul ts for this AM [facility] procedure are i n the results section. CBC W/PLT COUNT & Routine 11/25/2020 4:09 Result s for this AUTO DIFFERENTIAL AM [facility] procedure are in the results section. BASIC METABOLIC PANEL Routine 11/25/2020 4:09 Re sults for this (7) AM [facility] procedure are i n the results section. CBC W/PLT COUNT & Routine 11/25/2020 4:09 Result s for this AUTO DIFFERENTIAL AM [facility] procedure are in the results section. POCT-GLUCOSE METER Routine 11/24/2020 9:48 Resul ts for this PM [facility] C[facility] procedure are i n the results section. POCT-GLUCOSE METER Routine 11/24/2020 5:36 Resul ts for this PM [facility] C[facility] procedure are i n the results section. POCT-GLUCOSE METER Routine 11/24/2020 11:57 Resul ts for this AM [facility] procedure are i n the results section. POCT-GLUCOSE METER Routine 11/24/2020 7:17 Resul ts for this AM [facility] procedure are i n the results section. CBC W/PLT COUNT & Routine 11/24/2020 3:45 Result s for this AUTO DIFFERENTIAL AM [facility] procedure are in the results section. BASIC METABOLIC PANEL Routine 11/24/2020 3:45 Re sults for this (7) AM [facility] procedure are i n the results section. CBC W/PLT COUNT & Routine 11/24/2020 3:45 Result s for this AUTO DIFFERENTIAL AM [facility] procedure are in the results section. POCT-GLUCOSE METER Routine 11/23/2020 8:57 Resul ts for this PM [facility] C[facility] procedure are i n the results section. POCT-GLUCOSE METER Routine 11/23/2020 6:11 Resul ts for this PM [facility] C[facility] procedure are i n the results section. CT BRAIN WITHOUT IV STAT 11/23/2020 5:19 Resu lts for this CONTRAST PM [facility] C[facility] procedure are i n the results section. POCT-GLUCOSE METER Routine 11/23/2020 1:03 Resul ts for this PM [facility] procedure are i n the results section. URINALYSIS Routine 11/23/2020 10:36 Results for this MICROSCOPIC AM [facility] procedure are i n the results section. UREA NITROGEN, RANDOM Routine 11/23/2020 10:36 Re sults for this URINE AM [facility] procedure are i n the results section. CREATININE, RANDOM Routine 11/23/2020 10:36 Resul ts for this URINE AM [facility] procedure are i n the results section. URINALYSIS WITH Routine 11/23/2020 10:36 Results for this MICROSCOPIC IF AM [facility] C[facility]TER procedure are in INDICATED the results section. PROTEIN, RANDOM URINE Routine 11/23/2020 10:35 Re sults for this AM [facility] procedure are i n the results section. POTASSIUM, RANDOM Routine 11/23/2020 10:35 Result s for this URINE AM [facility] procedure are i n the results section. OSMOLALITY, URINE Routine 11/23/2020 10:35 Result s for this AM [facility] procedure are i n the results section. CREATININE, RANDOM Routine 11/23/2020 10:35 Resul ts for this URINE AM [facility] procedure are i n the results section. SODIUM, RANDOM URINE Routine 11/23/2020 10:35 Res ults for this AM [facility] procedure are i n the results section. URINE CULTURE Routine 11/23/2020 10:35 Results fo r this AM [facility] procedure are i n the results section. CBC W/PLT COUNT & Routine 11/23/2020 3:48 Result s for this AUTO DIFFERENTIAL AM [facility] procedure are in the results section. BASIC METABOLIC PANEL Routine 11/23/2020 3:48 Re sults for this (7) AM [facility] procedure are i n the results section. CBC W/PLT COUNT & Routine 11/23/2020 3:48 Result s for this AUTO DIFFERENTIAL AM [facility] procedure are in the results section. POCT-P2Y12 PLATELET Routine 11/23/2020 3:48 Resu lts for this AGGREGATION AM [facility] procedure are i n the results section. POCT-GLUCOSE METER Routine 11/22/2020 8:52 Resul ts for this PM [facility] C[facility] procedure are i n the results section. 2D ECHO W/ DOPPLER Routine 11/22/2020 6:32 Resul ts for this (CW/PW/COLOR) PM [facility] procedure are in the results section. POCT-GLUCOSE METER Routine 11/22/2020 4:15 Resul ts for this PM [facility] procedure are i n the results section. POCT-GLUCOSE METER Routine 11/22/2020 1:20 Resul ts for this PM [facility] procedure are i n the results section. CTA BRAIN Routine 11/22/2020 12:39 Results for this PM [facility] procedure are i n the results section. MR BRAIN WITHOUT IV MAGNOLIA 11/22/2020 11:26 Resu lts for this CONTRAST AM [facility] procedure are i n the results section. ECG 12-LEAD Routine 11/22/2020 7:46 Results for this AM [facility] procedure are i n the results section. POCT-GLUCOSE METER Routine 11/22/2020 7:21 Resul ts for this AM [facility] procedure are i n the results section. CBC W/PLT COUNT & Routine 11/22/2020 5:09 Result s for this AUTO DIFFERENTIAL AM [facility] procedure are in the results section. T4, FREE Routine 11/22/2020 5:09 Results for this AM [facility] procedure are i n the results section. TROPONIN I Routine 11/22/2020 5:09 Results for this AM [facility] procedure are i n the results section. HEMOGLOBIN A1C Routine 11/22/2020 5:09 Results f or this AM [facility] procedure are i n the results section. RPR Routine 11/22/2020 5:09 Results for this AM [facility] procedure are i n the results section. VITAMIN B12 AND Routine 11/22/2020 5:09 Results for this FOLATE AM [facility] procedure are i n the results section. POCT-P2Y12 PLATELET Routine 11/22/2020 5:09 Resu lts for this AGGREGATION AM [facility] procedure are i n the results section. HEPATIC FUNCTION Routine 11/22/2020 5:09 Results for this PANEL AM [facility] procedure are i n the results section. MAGNESIUM Routine 11/22/2020 5:09 Results for this AM [facility] procedure are i n the results section. PROTHROMBIN TIME/INR Routine 11/22/2020 5:09 Res ults for this AM [facility] procedure are i n the results section. TSH/FREE T4 IF Routine 11/22/2020 5:09 Results f or this INDICATED AM [facility] procedure are i n the results section. CBC W/PLT COUNT & Routine 11/22/2020 5:09 Result s for this AUTO DIFFERENTIAL AM [facility] procedure are in the results section. LIPID PANEL Routine 11/22/2020 5:09 Results for this AM [facility] procedure are i n the results section. BASIC METABOLIC PANEL Routine 11/22/2020 5:09 Re sults for this (7) AM [facility] procedure are i n the results section. SARS-COV2/RT-PCR Routine 11/22/2020 3:50 Results for this ([facility]) AM [facility] procedure are in the results section. REPORT OF PROCEDURE - 11/22/2020 Result s for this ENDOSCOPY SCAN procedure are in the results section. after 12/26/2019 Results POC-Glucose meter (11/28/2020 7:43 AM BOOK CUTTER)Only the most recent of23 results within the time period is included. POC-Glucose Meter 81 70 - 110 [facility] Comment: mg/dL [facility] : TESTED AT [facility] [address] [facility], [address] MEDICAL CENTER : Seating Upholsterer/Sheet Metal Technician ID = [id number] for MARIANNE CASANOVA Specimen Blood Performing Organization Address City/State/[place] [address] CENTER CBC with platelet count + automated diff (11/28/2020 5:56 AM BOOK CUTTER)Only the most recent of7 resultswithin the time period is included. Pathologist Sig nature WBC 14.0 (H) 3.5 - 10.5 [facility]/L [facility] RBC 4.34 3.93 - 5.22 [facility] M/[facility] Hemoglobin 12.7 11.2 - 15.7 [facility] GM/DL [facility] Hematocrit 38.4 34.1 - 44.9 % [facility] MCV 88.5 79.4 - 94.8 fL [facility] MCH 29.3 25.6 - 32.2 pg [facility] MCHC 33.1 32.2 - 35.5 [facility] GM/[facility] RDW 13.7 11.7 - 14.4 % [facility] Platelets 274 150 - 450 K/CU [facility] MPV 9.9 9.4 - 12.3 fL [facility] nRBC 0 0 - 0 /100 WBC [facility] % Neutros 69 % [facility] % Lymphs 20 % [facility] % Monos 8 % [facility] % Eos 2 % [facility] % Baso 1 % [facility] # Neutros 9.67 (H) 1.56 - 6.13 [facility] # Lymphs 2.82 1.18 - 3.74 [facility] # Monos 1.08 (H) 0.24 - 0.36 [facility]/L [facility] # Eos 0.32 0.04 - 0.36 [facility] # Baso 0.10 (H) 0.01 - 0.08 [facility] Immature 0 0 - 1 % [facility] Granulocytes-Relative [facility] Specimen Blood Performing Organization Address City/[facility]/[employer] Phone Number [facility] [address] [place] [address] CENTER Basic Metabolic Panel (11/28/2020 5:56 AM BOOK CUTTER)Only the most recent of7 results within the time period is included. Sodium 140 136 - 145 meq/L [facility] Potassium 4.0 3.5 - 5.1 meq/L [facility] Chloride 107 98 - 107 meq/L [facility] CO2 25 22 - 29 meq/L [facility] BUN 22 (H) 7 - 21 mg/dL [facility] Creatinine 1.29 (H) 0.57 - 1.25 [facility] mg/dL [facility] Glucose 84 70 - 105 mg/dL [facility] Calcium 9.1 8.4 - 10.2 [facility] mg/dL [facility] EGFR 39Comment: ESTIMATED mL/min/1.73 sq [facility] GFR IS NOT m [facility] [place] CREATININE CLEARANCE IN PREDICTING GLOMERULAR FILTRATION RATE. ESTIMATED GFR IS NOT APPLICABLE FOR DIALYSIS PATIENTS. Specimen Blood Narrative Performed At Seating Upholsterer ID - [facility] Performing Organization Address City/State/Zipcode Phone Number [facility] [address] [place] [address] CENTER US renal complete (11/27/2020 4:25 PM BOOK CUTTER)Only the most recent of2 results within the time period is included. Specimen Narrative Performed At FINAL REPORT [employer] TECHNIQUE: Grayscale ultrasound of the k idneys and bladder. INDICATION: KIM. COMPARISON: 11/25/2020. FINDINGS: RIGHT KIDNEY: The right kidney measures 8.5 cm. Cortical thickness measures 1.1 cm. No solid mass lesions. No hydronephrosis. Renal artery and vein are patent. LEFT KIDNEY: Left kidney is atrophic. Th e left kidney measures 8.5 cm. Cortical thickness measures 0.5 cm. No solid mass lesions. Mild hydronephrosis, unchanged. Renal artery and vein are patent. BLADDER: Hernandes catheter in the decompres sed urinary bladder.. Small volume ascites in the pelvis. IMPRESSION: Atrophic left kidney with mild left-side d hydronephrosis, unchanged. Small volume ascites.. Signed: Dalia Leigh MD Report Verified Date/Time: 11/27/2020 17:52:29 [facility] Body R ding Room Procedure Note Interface, External Ris In - 11/27/2020 7:38 PM BOOK CUTTER FINAL REPORT TECHNIQUE: Grayscale ultrasound of the k idneys and bladder. INDICATION: KIM. COMPARISON: 11/25/2020. FINDINGS: RIGHT KIDNEY: The right kidney measures 8.5 cm. Cortical thickness measures 1.1 cm. No solid mass lesions. No hydronephrosis. Renal artery and vein are patent. LEFT KIDNEY: Left kidney is atrophic. Th e left kidney measures 8.5 cm. Cortical thickness measures 0.5 cm. No solid mass lesions. Mild hydronephrosis, unchanged. Renal artery and vein are patent. BLADDER: Hernandes catheter in the decompres sed urinary bladder.. Small volume ascites in the pelvis. IMPRESSION: Atrophic left kidney with mild left-side d hydronephrosis, unchanged. Small volume ascites.. Signed: Dalia Leigh MD Report Verified Date/Time: 11/27/2020 1 7:52:29 Reading Location: [facility] B1 C013Y CT Body R eading Room Performing Organization Address City/State/Zipcode Phone Number [facility] Urinalysis w/Microscopic + Reflex to Culture (11/26/2020 9:59 AM BOOK CUTTER) Color, UA Yellow [facility] Clarity, UA Clear [facility] Specific [place], 1.023 1.001 - 1.035 [facility] pH, UA 6.0 5.0 - 8.0 [facility] Protein, UA 30 mg/dL (A) Negative [facility] Glucose, UA Negative Negative [facility] Ketones, UA Negative Negative [facility] Bilirubin, UA Negative Negative [facility] Blood, UA Moderate (A) Negative [facility] Nitrite, UA Negative Negative [facility] Leukocytes, UA Large (A) Negative [facility] Urobilinogen, UA 0.2 0.2 - 1.0 mg/dL [facility] RBC, UA 15 /HPF [facility] WBC, UA 60 /HPF [facility] Bacteria, UA Occasional [facility] Mucus Rare [facility] Specimen Source [facility] Specimen Urine - Urinary catheter, device (physic al object) Narrative Performed At Seating Upholsterer ID - [auto] [facility] Seating Upholsterer ID - tech Performing Organization Address City/State/Zipcode Phone Number [facility] [address] [place] [address] CENTER Urine culture (11/26/2020 9:59 AM BOOK CUTTER)Only the most recent of2 resultswithin the time period is included. Pathologist Sig nature Result No growth [facility] Specimen Urine - Urinary catheter, device (physic al object) Performing Organization Address [facility]/Zipcode Phone Number [facility] [address] [place] [address] [place] Urinalysis without Microscopic (11/25/2020 5:51 PM BOOK CUTTER) Color, UA Yellow [facility] Clarity, UA Clear [facility] Specific [place], 1.015 1.001 - 1.035 [facility] pH, UA 6.5 5.0 - 8.0 [facility] Protein, UA 20 mg/dL (A) Negative [facility] Glucose, UA Negative Negative [facility] Ketones, UA Negative Negative [facility] Bilirubin, UA Negative Negative [facility] Blood, UA Moderate (A) Negative [facility] Nitrite, UA Negative Negative [facility] Leukocytes, UA Large (A) Negative [facility] Urobilinogen, UA 0.2 0.2 - 1.0 mg/dL [facility] Specimen Source [facility] Specimen Urine Narrative Performed At Seating Upholsterer ID - [auto] [facility] Performing Organization Address City/[facility]/Zipcode Phone Number [facility] [address] [place] [address] [place] [address] brain without IV contrast (11/23/2020 5:19 PM BOOK CUTTER) Specimen Narrative Performed At FINAL REPORT [employer] CT, BRAIN, WITHOUT IV CONTRAST INDICATION: Neuro deficit, acute, persis tent or progressing TECHNIQUE: Noncontrast axial imaging was obtained from the vertex to the skull base. Axial images were recons tructed using a bone algorithm. DOSE REDUCTION: Dose modulation, iterati ve reconstruction, and/or weight-based adjustment of the mA/kV was utilized to reduce the radiation dose to as low as reasonably a chievable. COMPARISON: MRI and CTA 11/22/2020 FINDINGS: Intracranial: Known evolving infarcts in the left thalamus and left cerebellar hemisphere, better demonstrat ed by recent MRI. Additional remote infarcts involving the left occip ital lobe and right cerebellar hemisphere. No intracranial hemorrhage or abnormal e xtra-axial collection. No mass effect. No hydrocephalus. Scattered foci of hypoattenuation within the periventricular and subcortical white matter are a nonspecif ic finding commonly attributed to chronic small vessel ische rodney disease. Intracranial vascular calcifications. Osseous structures: No fracture. No susp icious lesion. Paranasal sinuses and mastoid air cells: No evidence of sinusitis. Mastoids are clear. Orbital contents: Globes are intact. IMPRESSION: Evolving multifocal infarcts in the left thalamus and left cerebellar hemisphere, without hemorrhagic transfor mation. Signed: Rene Arambula MD Report Verified Date/Time: 11/23/2020 17:35:19 Procedure Note Interface, External Ris In - 11/23/2020 5:37 PM BOOK CUTTER FINAL REPORT CT, BRAIN, WITHOUT IV CONTRAST INDICATION: Neuro deficit, acute, persis tent or progressing TECHNIQUE: Noncontrast axial imaging was obtained from the vertex to the skull base. Axial images were recons tructed using a bone algorithm. DOSE REDUCTION: Dose modulation, iterati ve reconstruction, and/or weight-based adjustment of the mA/kV was utilized to reduce the radiation dose to as low as reasonably a chievable. COMPARISON: MRI and CTA 11/22/2020 FINDINGS: Intracranial: Known evolving infarcts in the left thalamus and left cerebellar hemisphere, better demonstrat ed by recent MRI. Additional remote infarcts involving the left occip ital lobe and right cerebellar hemisphere. No intracranial hemorrhage or abnormal e xtra-axial collection. No mass effect. No hydrocephalus. Scattered foci of hypoattenuation within the periventricular and subcortical white matter are a nonspecif ic finding commonly attributed to chronic small vessel ische rodney disease. Intracranial vascular calcifications. Osseous structures: No fracture. No susp icious lesion. Paranasal sinuses and mastoid air cells: No evidence of sinusitis. Mastoids are clear. Orbital contents: Globes are intact. IMPRESSION: Evolving multifocal infarcts in the left thalamus and left cerebellar hemisphere, without hemorrhagic transfor mation. Signed: Rene Arambula MD Report Verified Date/Time: 11/23/2020 1 7:35:19 Performing Organization Address City/State/Zipcode Phone Number RIS Urinalysis Microscopic Only (11/23/2020 10:36 AM BOOK CUTTER) Pathologist Sig nature RBC, UA 154 /HPF [facility] WBC, UA 15 /HPF [facility] Bacteria, UA Occasional [facility] Mucus Occasional [facility] Squam Epithel, UA <1 /HPF [facility] Hyaline Casts, UA 1 /LPF [facility] Specimen Urine Narrative Performed At Seating Upholsterer ID - tech [facility] Performing Organization Address [facility]/[place] [address] CENTER Urinalysis with Microscopic If Indicated (11/23/2020 10:36 AM BOOK CUTTER) Color, UA Yellow [facility] Clarity, UA Clear [facility] Specific [place], 1.020 1.001 - 1.035 [facility] pH, UA 6.0 5.0 - 8.0 [facility] Protein, UA 30 mg/dL (A) Negative [facility] Glucose, UA Negative Negative [facility] Ketones, UA Negative Negative [facility] Bilirubin, UA Negative Negative [facility] Blood, UA Large (A) Negative [facility] Nitrite, UA Negative Negative [facility] Leukocytes, UA Large (A) Negative [facility] Urobilinogen, UA 0.2 0.2 - 1.0 mg/dL [facility] Specimen Source [facility] Specimen Urine Narrative Performed At Seating Upholsterer ID - [auto] [facility] Performing Organization Address City/[facility]/[place] Phone Number [address] [address] [place] Urea Nitrogen, random urine (11/23/2020 10:36 AM BOOK CUTTER) Pathologist Sig nature Urea Nitrogen, Ur 236 mg/dL [facility] Specimen Urine Narrative Performed At Reference Range: No Normals [facility] Seating Upholsterer ID - ADMIN Performing Organization Address [facility]/[employer] Phone Number [address] [address] [place] Creatinine, random urine (11/23/2020 10:36 AM BOOK CUTTER)Only the most recent of2 resultswithin the time period is included. Pathologist Sig nature Creatinine, Ur 57.2 mg/dL [facility] [place] Specimen Urine Narrative Performed At Reference Range: No Normals [facility] Seating Upholsterer ID - ADMIN Performing Organization Address [facility]/[employer] Phone Number [address] [address] [place] Sodium, random urine (11/23/2020 10:35 AM BOOK CUTTER) Pathologist Sig nature Sodium Urine 98 meq/L [facility] Specimen Urine Narrative Performed At Reference Range: No Normals [facility] Seating Upholsterer ID - FSE Performing Organization Address [facility]/[place] Phone Number [address] [address] CENTER Protein, random urine (11/23/2020 10:35 AM BOOK CUTTER) Pathologist Sig nature Protein, Urine 49 (H) 0 - 14 mg/dL [facility] Specimen Urine Narrative Performed At Seating Upholsterer ID - FSE [facility] Performing Organization Address [facility]/[place] [address] [place] Potassium, random urine (11/23/2020 10:35 AM BOOK CUTTER) Pathologist Sig nature Potassium Urine 26.8 meq/L [facility] Specimen Urine Narrative Performed At Reference Range: No Normals [facility] Seating Upholsterer ID - FSE Performing Organization Address [facility] [place] [address] [place] Osmolality, urine (11/23/2020 10:35 AM BOOK CUTTER) Pathologist Sig nature Osmolality, Ur 394 50-1,200 mOsm/kg [facility] mOsm/kg [facility] Specimen Urine Performing Organization Address [facility] [place] [address] [place] [id number] PLATELET AGGREGATION (11/23/2020 3:48 AM BOOK CUTTER)Only the most recent of 2 resultswithin the time period is included. Pathologist Sig nature [id number] Plt Agg 102 PRU [facility] Specimen Blood Narrative Performed At RANGE INFORMATION: PRU reference range is [facility] 194-418. Post Drug Results: Lower PRU levels are associated with expected antiplatelet effect. Values may be below the stated reference range above. The post-drug PRU values reported in the [employer] P2Y12 package insert are [id number]. Performing Organization Address [facility]/[place] [address] [place] Transthoracic 2D echo w/ doppler (cw/pw/color) (11/22/2020 6:32 PM BOOK CUTTER) Pathologist Sig nature Ejection Fraction [facility] Specimen Narrative Performed At Transthoracic Echocardiography Report (T TE) [facility] Demographics Patient Name STEPHANIE LLAMAS Date of Study 11/22/2020 Gender Female Visit Number [id number] Race Unknown Room Number 2215 Number Date of 1935 Referring Physician Valarie Chaves MD Age 84 year(s) [employer]all[employer] Manager Aleena Wells CS Interpreting [facility] Needs to b e Pre Physician Read Mathew Broussard MD Fellow Javier Baez MD Procedure Type of Study TTE procedure:2DECHO W DOPPLER(CW/PW/COLOR) (Routine) Indications:Stroke work up. Clinical History CA, HLD, HTN, CVA HGB 12.3 HCT 37.4 % BUBBLE STUDY. Contrast Medium: Definity. Amount - 2 ml Height: 60 inches Weight: 62.6 kg (138 lbs) BSA: 1.59 m^2 BMI: 26.95 kg/m^2 HR: 80 bpm BP: 185/93 mmHg Summary Very severe mitral annular calcification homogenous well-demarcated up to 2.3 cm diameter parasternal long axis, with extension around the posterior mitral annulus. Mild MV leaflet thickening. Trace mitral regurgitation. Probably [id number] mitral stenosis due to severe mitral annular calcification - mean MV gradient 5 mm hg at 65 bpm. No other significant casimiro or structural heart disease detected. IV saline contrast injection was negative for a PFO (patent foramen ovale) at rest and post Valsalva . LA size is normal (16-34 ml/m2) . Signature Findings Rhythm/BP Regular sinus rhythm during the exam. Left Ventricle Discrete basal septal hypertrophy is present. The left ventricle is chamber size (by vol index) is normal (female - LVED vol - 29-61ml/m2). All of the LV segments are hyperkinetic . LVEF by Aguirre's method of disk assessment is increased (>70%) . Degree of diastolic dysfunction (LAP assessment) i s inconclusive due to mitral annular calcification . Left Atrium LA size is normal (16-34 ml/m2) . Right Ventricle The right ventricular chamber size and systolic function are within normal limits by S'. Right Atrium RA size is normal. Atrial Septum Normal interatrial septum by available views. IV saline contrast injection was negative for a PF O (patent foramen ovale) at rest and post Valsalva . Aortic Valve Mild AoV cusp thickening. Mild AoV cusp calcification. No evidence of aortic regurgitation. There is no aortic stenosis. Mitral Valve Very severe mitral annular calcification homogenous well-demarcated up to 2.3 cm diameter parasternal long axis, with extension around the posterior mitral annulus. Mild MV leaflet thickening. Trace mitral regurgitation. Probably [id number]-[id number]-wnioefgo mitral stenosis due to severe mitral annular calcification - mean MV gradient 5 mm hg at 65 bpm. Tricuspid Valve Normal TV structure and function by available views and Doppler. Estimated peak systolic PA pressure is cannot be determined due to inadequate TR velocity signal . Pulmonic Valve Normal PV structure and function by limited views and Doppler. A trace of pulmonary regurgitation. Aorta Aortic root size (SInus of Valsalva diameter) is norm al . Pericardium No significant pericardial effusion is visualized. IVC/SVC/PA/PV/Pleural The estimated RA pressure by IVC dynamics 5-10mmHg . Chambers/Structures Left Atrium LA Volume: 52.81 ml LA Area: 17.62 cm^2 LA Vol. Index: 33 ml/m^2 Left Ventricle LVIDd: 3 cm LVEDV:55.38 ml LVIDs: 1.49 cm LVESV:17.65 ml LV Septum Diastolic: 1.01 cm LVEF 2D Cube: 63 % LV PW Diastolic: 0.91 cm LVEDV Aguirre's:46.71 ml LV FS: 50.3 % LVESV Aguirre's:11.68 ml LVEF Aguirre's: 75.1 % LVEDVI: 29 ml/m^2 LVESVI: 7 ml/m^2 LVOT Diameter: 1.77 cm LVEF: 68.1 % Aorta Ascending Aorta: 2.76 cm Doppler/Quantitative Measurements Mitral Valve MV Peak E-Wave: 0.76 m/s MV Peak A-Wave: 1.68 m/s Peak Velocity: 1.76 m/s E/A Ratio: 0.45 Mean Velocity: 1.06 m/s Peak Gradient: 2.33 mmHg Mean Gradient: 5.24 mmHg Area (continuity): 1.3 cm^2 MV VTI: 33.64 cm MV Tony. Peak: 1.78 m/s Tissue Doppler E' Septal Velocity: 0.03 m/s E/E': 24.05 Aortic Valve Peak Velocity: 1.14 m/s Mean Velocity: 0.86 m/s Peak Gradient: 5.17 mmHg Mean Gradient: 3.25 mmHg AV Area (continuity): 2.21 cm^2 AV VTI: 19.78 cm AV DVI: 0.9 LVOT Peak Velocity: 1.13 m/s Peak Gradient: 5.07 mmHg Mean Velocity: 0.79 m/s Mean Gradient: 2.82 mmHg LVOT Diameter: 1.77 cm LVOT VTI: 17.74 cm LVOT Area: 2.46 cm^2 LVOT SV:43.63 ml LVOT CO: 3.49 l/min LVOT CI: 2.19 l/min/m^2 Procedure Note Interface, External Ris In - 11/23/2020 12:13 PM BOOK CUTTER Transthoracic Echocardiography Report (TTE) Demographics Patient Name STEPHANIE LLAMAS Date of Study 11/22/2020 Gender Female Visit Number [id number] Race Unknown [place] [address] Number Date of 1935 Referri Physician Valarie Chaves MD Age 84 year(s) Sonogra pher Bev Lopez, [facility] Interpr eting [facility] Needs to be Pre Physici an Read Mathew Broussard MD Fellow Javier Baez MD Procedure Type of Study TTE procedure:2DECHO W DOPPLE R(CW/PW/COLOR) (Routine) Indications:Stroke work up. Clinical History CA, HLD, HTN, CVA HGB 12.3 HCT 37.4 % BUBBLE STUDY. Contrast Medium: Definity. Amount - 2 ml Height: 60 inches Weight: 62.6 kg (138 l bs) BSA: 1.59 m^2 BMI: 26.95 kg/m^2 HR: 80 bpm BP: 185/93 mmHg Summary Very severe mitral annular calcificatio n homogenous well-demarcated up to 2.3 cm diameter parasternal long axis, with extension around the posterior mitral annulus. Mild MV leaflet thickening. Trace mitral regurgitation. Probably [id number] mitral stenos is due to severe mitral annular calcification - mean MV gradient 5 mm h g at 65 bpm. No other significant casimiro or structural heart disease detected. IV saline contrast injection was negati ve for a PFO (patent foramen ovale) at rest and post Valsalva . LA size is normal (16-34 ml/m2) . Signature Findings Rhythm/BP Regular sinus rh ythm during the exam. Left Ventricle Discrete basal s eptal hypertrophy is present. The left ventric le is chamber size (by vol index) is normal (femal e - LVED vol - 29-61ml/m2). All of the LV se gments are hyperkinetic . LVEF by Aguirre' s method of disk assessment is increased (>70%) . Degree of diasto lic dysfunction (LAP assessment) is inconclusive due to mitral annular calcification . Left Atrium LA size is kimberli l (16-34 ml/m2) . Right Ventricle The right ventri cular chamber size and systolic function are wit hin normal limits by S'. Right Atrium RA size is kimberli l. Atrial Septum Normal interatri al septum by available views. IV saline contra st injection was negative for a PFO (patent foramen ovale) at rest and post Valsalva . Aortic Valve Mild AoV cusp th ickening. Mild AoV cusp ca lcification. No evidence of a ortic regurgitation. There is no aort ic stenosis. Mitral Valve Very severe mitr al annular calcification homogenous well-demarcated up to 2.3 cm diameter parasternal long axis, with extension around the posterior mitral annulus. Mild MV leaflet thickening. Trace mitral reg urgitation. Probably mild-to -moderate mitral stenosis due to severe mitral an nular calcification - mean MV gradient 5 mm hg at 65 bpm. Tricuspid Valve Normal TV struct ure and function by available views and Doppler. Estimated peak s ystolic PA pressure is cannot be determined due t o inadequate TR velocity signal . Pulmonic Valve Normal PV struct ure and function by limited views and Doppler. A trace of pulmo nary regurgitation. Aorta Aortic root size (SInus of Valsalva diameter) is normal . Pericardium No significant p ericardial effusion is visualized. IVC/SVC/PA/PV/Pleural The estimated RA pressure by IVC dynamics 5-10mmHg . Chambers/Structures Left Atrium LA Volume: 52.81 ml LA Area: 17.62 cm^2 LA Vol. Index: 33 ml/m^2 Left Ventricle LVIDd: 3 cm LVEDV:55.38 ml LVIDs: 1.49 cm LVESV:17.65 ml LV Septum Diastolic: 1.01 cm LVEF 2D Cube: 63 % LV PW Diastolic: 0.91 cm LVEDV Aguirre's:46.71 ml LV FS: 50.3 % LVESV Aguirre's:11.68 ml LVEF Aguirre's: 75.1 % LVEDVI: 29 ml/m^2 LVESVI: 7 ml/m^2 LVOT Diameter: 1.77 cm LVEF: 68.1 % Aorta Ascending Aorta: 2.76 cm Doppler/Quantitative Measurements Mitral Valve MV Peak E-Wave: 0.76 m/s MV Peak A-Wave: 1.68 m/s Peak Velocity: 1.76 m/s E/A Ratio: 0.45 Mean Velocity: 1.06 m/s Peak Gradient: 2.33 mmHg Mean Gradient: 5.24 mmHg Area (continuity): 1.3 cm^2 MV VTI: 33.64 cm MV Tony. Peak: 1.78 m/s Tissue Doppler E' Septal Velocity: 0.03 m/s E/E': 24.05 Aortic Valve Peak Velocity: 1.14 m/s Mean Velocity: 0.86 m/s Peak Gradient: 5.17 mmHg Mean Gradient: 3.25 mmHg AV Area (continuity): 2.21 cm^2 AV VTI: 19.78 cm AV DVI: 0.9 LVOT Peak Velocity: 1.13 m/s Pea k Gradient: 5.07 mmHg Mean Velocity: 0.79 m/s Wendy n Gradient: 2.82 mmHg LVOT Diameter: 1.77 cm LVO T VTI: 17.74 cm LVOT Area: 2.46 cm^2 LVO T SV:43.63 ml LVOT CO: 3.49 l/min LVO T CI: 2.19 l/min/m^2 Performing Organization Address City/State/Zipcode Phone Number [facility] CTA brain (11/22/2020 12:39 PM BOOK CUTTER) Specimen Narrative Performed At FINAL REPORT [employer] [facility] CT, CTANGIO BRAIN BRAIN CT WITHOUT CONTRAST INDICATION: Stroke, follow up COMPARISON: Correlation to noncontrast b rain MRI obtained approximately one hour prior TECHNIQUE: Rapid acquisition spiral images were obt ained between the skull base and the cranial vertex during intravenou s contrast infusion to reconstruct axial images and angiographi c 3D maximum intensity projections (MIP). 3-D volumetric reform atted images were created at a dedicated workstation. Precontrast dieudonne ges of the brain were also obtained. DOSE REDUCTION: Dose modulation, iterati ve reconstruction, and/or weight-based adjustment of the mA/kV was utilized to reduce the radiation dose to as low as reasonably a chievable. FINDINGS: CT BRAIN: No ischemic changes in the left thalamus and left cerebellar hemisphere are not well characterized in the current examination. Remote left mesial occipital lobe infarc t is again identified. There is no midline shift or hydrocephalus. Os seous structures are intact. No abnormal extra-axial fluid is identif ied. CTA BRAIN: Circumferential calcific atherosclerosis is present in the internal carotid arteries but without flow limita tion. Middle cerebral arteries and distal branches are well-op acified. Anterior cerebral arteries and anterior to indicating elin ry are intact. There is atretic flow through the intracranial ve rtebral arteries. Circumferential calcification is present bilaterally in the vertebral arteries at the dural breech. There is a tretic flow in the basilar artery. And intermittent opacification o f the posterior cerebral arteries bilaterally, worse on the left. IMPRESSION: No hemorrhagic conversion is identified in the none ischemic regions. No large vessel occlusion. Atretic flow through the posterior circu lation with intermittent opacification of the basilar artery and decreased opacification of the posterior cerebral arteries, worse o n the left. Signed: JR Siomara, Miguel OSMAN Report Verified Date/Time: 11/22/2020 12:57:12 Reading [facility] C013V [facility] Room Procedure Note Interface, External Ris In - 11/22/2020 12:59 PM BOOK CUTTER FINAL REPORT CT, CTANGIO BRAIN BRAIN CT WITHOUT CONTRAST INDICATION: Stroke, follow up COMPARISON: Correlation to noncontrast b rain MRI obtained approximately one hour prior TECHNIQUE: Rapid acquisition spiral images were obt ained between the skull base and the cranial vertex during intravenou s contrast infusion to reconstruct axial images and angiographi c 3D maximum intensity projections (MIP). 3-D volumetric reform atted images were created at a dedicated workstation. Precontrast dieudonne ges of the brain were also obtained. DOSE REDUCTION: Dose modulation, iterati ve reconstruction, and/or weight-based adjustment of the mA/kV was utilized to reduce the radiation dose to as low as reasonably a chievable. FINDINGS: CT BRAIN: No ischemic changes in the left thalamus and left cerebellar hemisphere are not well characterized in the current examination. Remote left mesial occipital lobe infarc t is again identified. There is no midline shift or hydrocephalus. Os seous structures are intact. No abnormal extra-axial fluid is identif ied. CTA BRAIN: Circumferential calcific atherosclerosis is present in the internal carotid arteries but without flow limita tion. Middle cerebral arteries and distal branches are well-op acified. Anterior cerebral arteries and anterior to indicating elin ry are intact. There is atretic flow through the intracranial ve rtebral arteries. Circumferential calcification is present bilaterally in the vertebral arteries at the dural breech. There is a tretic flow in the basilar artery. And intermittent opacification o f the posterior cerebral arteries bilaterally, worse on the left. IMPRESSION: No hemorrhagic conversion is identified in the none ischemic regions. No large vessel occlusion. Atretic flow through the posterior circu lation with intermittent opacification of the basilar artery and decreased opacification of the posterior cerebral arteries, worse o n the left. Signed: JR Stringer Robert MD Report Verified Date/Time: 11/22/2020 1 2:57:12 Reading Location: [address] Room Performing Organization Address City/State/Zipcode Phone Number [employer] MR brain without IV contrast (11/22/2020 11:26 AM BOOK CUTTER) Specimen Narrative Performed At FINAL REPORT [employer] MR, BRAIN, WITHOUT CONTRAST INDICATION: Neuro deficit, acute, stroke suspected TECHNIQUE: Multiplanar, multisequence MR imaging of the brain without intravenous contrast. COMPARISON: None FINDINGS: Diffusion restriction is evident in the left thalamus and paramedian left cerebellar hemisphere. Is no eviden ce of hemorrhagic conversion. Supratentorial brain demonstrates mild v olume loss with confluent periventricular white matter disease. Se quela of prior infarct noted in the mesial left occipital lobe. The v entricles are normal in size and configuration. The larger intracrani al vascular flow-voids are preserved. Paranasal sinuses and mastoid air cells are clear. There is normal bone marrow signal intensity w ithin the calvarium and skull base. IMPRESSION: Nonhemorrhagic ischemic changes are pres ent in the left thalamus and paramedian left cerebellar hemisphere. Signed: JR Stringer Robert MD Report Verified Date/Time: 11/22/2020 11:38:52 Reading Location: [facility] C[facility] Room Procedure Note Interface, External Ris In - 11/22/2020 11:41 AM BOOK CUTTER FINAL REPORT MR, BRAIN, WITHOUT CONTRAST INDICATION: Neuro deficit, acute, stroke suspected TECHNIQUE: Multiplanar, multisequence MR imaging of the brain without intravenous contrast. COMPARISON: None FINDINGS: Diffusion restriction is evident in the left thalamus and paramedian left cerebellar hemisphere. Is no eviden ce of hemorrhagic conversion. Supratentorial brain demonstrates mild v olume loss with confluent periventricular white matter disease. Se quela of prior infarct noted in the mesial left occipital lobe. The v entricles are normal in size and configuration. The larger intracrani al vascular flow-voids are preserved. Paranasal sinuses and mastoid air cells are clear. There is normal bone marrow signal intensity w ithin the calvarium and skull base. IMPRESSION: Nonhemorrhagic ischemic changes are pres ent in the left thalamus and paramedian left cerebellar hemisphere. Signed: JR Stringer Robert MD Report Verified Date/Time: 11/22/2020 1 1:38:52 Reading Location: [address] Performing Organization Address City/[employer]/[place] Phone Number [employer] RIS ECG 12 lead (11/22/2020 7:46 AM BOOK CUTTER) Specimen Narrative Performed At This result has an attachment that is no t available. Ventricular Rate 63 BPM GE MUSE Atrial Rate 63 BPM P-R Interval 172 ms QRS Duration 80 ms Q-T Interval 454 ms QTC Calculation(Bazett) 464 ms P [place] 6 degrees R [place] 44 degrees T [place] 26 degrees Poor data quality Normal sinus rhythm Low voltage QRS Nonspecific ST abnormality Prolonged QT Abnormal ECG No previous ECGs available Confirmed by MD CAPMOS YOCHAI ([id number]) on 11/22/2020 4:53:51 PM Procedure Note Interface, External Ris In - 11/22/2020 4:54 PM BOOK CUTTER Ventricular Rate 63 BPM Atrial Rate 63 BPM P-R Interval 172 ms QRS Duration 80 ms Q-T Interval 454 ms QTC Calculation(Bazett) 464 ms P [place] 6 degrees R [place] 44 degrees T [place] 26 degrees Poor data quality Normal sinus rhythm Low voltage QRS Nonspecific ST abnormality Prolonged QT Abnormal ECG No previous ECGs available Confirmed by MD CAMPOS YOCHAI ([id number]) on 11/22/2020 4:53:51 PM Performing Organization Address City/[facility]/[place] Phone Number GE MUSE Vitamin B12 and Folate (11/22/2020 5:09 AM BOOK CUTTER) Pathologist Sig nature Vitamin B12 267 213 - 816 pg/mL [facility] Folate 14.50 >=7.00 ng/mL [facility] Specimen Blood Narrative Performed At Seating Upholsterer ID - JONA L [facility] Performing Organization Address [facility]/[employer] Phone Number [address] [address] [place] TSH/Free T4 If Indicated (11/22/2020 5:09 AM BOOK CUTTER) Pathologist Sig nature TSH 75.776 (H) 0.350 - 4.940 [facility] uIU/mL [facility] Specimen Blood Narrative Performed At Seating Upholsterer ANTONINA - JONA Harley [facility] Performing Organization Address [facility]/[employer] Phone Number [address] [address] [place] Troponin I (11/22/2020 5:09 AM BOOK CUTTER) Pathologist Sig nature Troponin I 0.01 0.00 - 0.03 ng/mL [facility] Specimen Blood Narrative Performed At Troponin I (TnI) levels must be interpreted [facility] in the context of the presenting symptoms and the clinical findings. Elevated TnI levels indicate myocardial damage, but are not specific for ischemic heart disease. Elevated TnI levels are seen in patients with other cardiac conditions (including myocarditis and congestive heart failure), and slight TnI elevations occur in patients with other conditions, including sepsis, renal failure, acidosis, acute neurological disease, and persistent tachyarrhythmia. Seating Upholsterer ID - JONA L Performing Organization Address City/[facility]/Zipcode Phone Number [address] [address] CENTER RPR (11/22/2020 5:09 AM BOOK CUTTER) Pathologist Sig nature RPR Nonreactive Nonreactive [facility] Specimen Blood Performing Organization Address City/State/Zipcode Phone Number [address] [address] CENTER Prothrombin time/INR (11/22/2020 5:09 AM BOOK CUTTER) Pathologist Sig nature Protime 14.6 (H) 11.9 - 14.2 seconds [facility] INR 1.18 <=5.90 [facility] Specimen Blood Narrative Performed At Effective 04/02/2019: PT Reference Range [facility] Change New: 11.9-14.2 Previous: 11.7-14.7 RECOMMENDED COUMADIN/WARFARIN INR THERAPY RANGES STANDARD DOSE: 2.0-3.0 Includes: PROPHYLAXIS for venous thrombosis, systemic embolization; TREATMENT for venous thrombosis and/or pulmonary embolus. HIGH RISK: Target INR is 2.5-3.5 for patients wiht mechanical heart valves. Performing Organization Address City/[facility]/Zipcode Phone Number [address] [address] CENTER T4, free (11/22/2020 5:09 AM BOOK CUTTER) Pathologist Sig nature Free T4 0.68 (L) 0.70 - 1.48 ng/dL [facility] Specimen Blood Narrative Performed At Seating Upholsterer ID - HEATHER Huizar [facility] [place] Performing Organization Address City/[facility]/Zipcode Phone Number [address] [address] CENTER Magnesium (11/22/2020 5:09 AM BOOK CUTTER) Pathologist Sig nature Magnesium 1.7 1.6 - 2.6 mg/dL [facility] Specimen Blood Narrative Performed At Seating Upholsterer ID Kvng Harley [facility] Performing Organization Address City/State/Zipcode Phone Number [address] [address] CENTER Hemoglobin A1c (11/22/2020 5:09 AM BOOK CUTTER) Pathologist Sig nature Hemoglobin A1C 5.4 4.3 - 6.1 % [facility] Specimen Blood Performing Organization Address City/[facility]/Zipcode Phone Number [address] [address] [place] Hepatic function panel (11/22/2020 5:09 AM BOOK CUTTER) Pathologist Sig nature Protein, Total 6.3 6.0 - 8.3 gm/dL [facility] Albumin 3.3 (L) 3.5 - 5.0 g/dL [facility] Total Bilirubin 0.5 0.2 - 1.2 mg/dL [facility] Bilirubin, Direct 0.2 0.1 - 0.5 mg/dL [facility] Alkaline Phosphatase 104 40 - 150 U/L [facility] AST 15 5 - 34 U/L [facility] ALT 8 6 - 55 U/L [facility] Specimen Blood Narrative Performed At Seating Upholsterer ID - PIAYA L [facility] [place] Performing Organization Address City/State/Zipcode Phone Number [address] [address] [place] Fasting lipid panel (11/22/2020 5:09 AM BOOK CUTTER) Pathologist Sig nature Triglycerides 150 mg/dL [facility] [place] Cholesterol 208 mg/dL [facility] [place] HDL 43 mg/dL [facility] [place] LDL Calculated 135 mg/dL [facility] [place] Specimen Blood Narrative Performed At Triglyceride Reference Range: [facility] Low Risk <150 Borderline 150-199 High Risk 200-499 Very High Risk >=500 Cholesterol Reference Range: Low Risk <200 Borderline 200-239 High Risk >240 HDL Cholesterol Reference Range: Low Risk >=60 High Risk <40 LDL Cholesterol Reference Range: Optimal <100 Near Optimal 100-129 Borderline 130-159 High 160-189 Very High >=190 Seating Upholsterer ID - PILIANA L Performing Organization Address City/State/Zipcode Phone Number [facility] [address] [place] [address] CENTER SARS-CoV2/RT-PCR (Asymptomatic ONLY) (11/22/2020 3:50 AM BOOK CUTTER) SARS-COV2/RT-PCR Negative Not Detected, [facility] Negative, See [facility] external report CENTER for linked test SARS-COV-2 [facility] KELY [facility] PERFORMING LAB [facility] Specimen Other - Nasopharyngeal wall structure (b taylor structure) Narrative Performed At Negative result for this test determines that [facility] SARS-CoV-2 RNA was not present in the specimen above the Limit of Detection (LOD). However, Negative results do not preclude SARS-CoV-2 infection and should not be used as the sole basis for treatment or patient management decisions. Negative results must be combined with clinical observations, patient history, and epidemiological information. A false negative result may occur if a specimen is improperly collected, transported or handled. A false negative result should be considered if patient's recent exposures or clinical presentation indicate that COVID-19 (SARS-CoV-2) is likely and diagnostic tests for other causes of illness are negative. Re-testing should be considered in cases of suspected false negatives. The limit of detection for this assay is 800 copies/mL. This SARS CoV-2 test is a real-time RT-PCR test intended for the qualitative detection of nucleic acid from SARS-CoV-2 in a nasopharyngeal swab specimen collected from individuals suspected of COVID-19 by their healthcare provider. This test has not been Food and Drug Administration (FDA) cleared or approved. This is a modified version of an approved Emergency Use Authorization (EUA) and is in the process of review by the FDA. Once authorized by the FDA, the issued EUA will be effective until the declaration that circumstances exist justifying the authorization of the emergency use of in vitro diagnostic tests for detection and/or diagnosis of COVID-19 is terminated under Section 564(b)(2) of the Act or the EUA is revoked under Section 564(g) of the Act. Fact Sheet for Healthcare Providers: https://www.[employer]/sites/default/files/pro duct/documents/Fact_Sheet_HC_Providers_Lyra_SA RS-CoV-2.pdf Fact Sheet for Healthcare Patients: https://www.[employer].Roadnet/sites/default/files/pro duct/documents/Fact_Sheet_Patients_Lyra_SARS-C oV-2.pdf Performing Laboratory: [place] [id number] Performing Organization Address City/State/Zipcode Phone Number [address] [address] CENTER EKG-SCANNED (11/22/2020) Narrative Performed At This result has an attachment that is no t available. Ordered by an unspecified provider. after 12/26/2019 Insurance Payer Benefit Plan / Subscriber ID Effective Dates Phone Addre ss Type Group [facility] [id number] 2020-Present MEDICARE MGD CARE O Advance Directives For more information, please contact: [phone] Code Status Date Activated Date Inactivated Comments Full Code 11/22/2020 1:26 AM 11/28/2020 1:22 PM This code status was determined by: Patient
--- OUTSIDE RECORDS SUMMARY | 2020-12-26 17:10 | XMS REPORT | Continuity of Care Document ---
:1935 Author Organization [facility] t Address [address] [place] [address] Care Team Providers Name Role Phone Cameron OSMAN Attending Clinician Addie CHAVES Attending Clinician Unavailable Addie Chaves MD Attending Clinician Daniel OSMAN Attending Clinician Edinson Matt MD Attending Clinician Fabiola Osman MD Attending Clinician FABIOLA OSMAN Admitting Clinician Unavailable Payers Payer Name Policy Type Policy Effective Date Expiration Date Sour ce Number [facility] [id number] [facility] - MEDICARE MGD 00:00:00 [facility] [id number] 021-Present Problems Condition Condition Condition Status Onset Resolution Last Treating Co mments Source Name Details Category Date Date Treatment Clinician Date CVA CVA Disease Active [facility] (cerebral [facility]-22ke s - vascular vascular 00:00: Medica l accident) accident) 00 Cent er Allergies, Adverse Reactions, Alerts Allergy Allergy Status Severity Reaction(s) Onset Inactive Treating Comm ents Source Name Type Date Date Clinician Aspirin Propensi Active Adult ASA [facility] - adverse 00:00: Medical reaction 00 Center s Warfarin Propensi Active [facility]22 [facility] - adverse 00:00: Medical reaction 00 Center s Social History Social Habit Start Date Stop Date Quantity Comments Source History SDNM [facility] - Alcohol Std Drinks Medica l [place] History SDNM [facility] - Alcohol Binge Medical Melissa ter Sex Assigned At [facility] Alcohol intake 2020-11-22 2020-11-22 Lifetime [facility] St Reynaldo es - 00:00:00 00:00:00 non-drinker Medical Cente r (finding) History SDOH 2020-11-22 2020-11-[address] [facility] - Alcohol Frequency 00:00:00 00:00:00 [facility] Center Tobacco use and 2020-11-22 2020-11-22 Never used [facility] St Ashley kes - exposure 00:00:00 00:00:00 [facility] Smoking Status Start Date Stop Date Source Never smoker [facility] Medications Ordered Filled Start Stop Current Ordering Indication Dosage Frequency Signature Comments Components Source Medication Medication Date Date Medication? Clinician (SIG) Name Name levothyroxi Yes hypothyroid 88ug Take [address] ne 11-28 ism mcg by [facility]ukes - (SYNTHROID, 11:22: mouth Medic al LEVOTHROID) 14 Every Center 88 MCG morning on tablet an empty stomach. clopidogreL Yes 75mg QD Take [address] (PLAVIX) 75 11-28 by mouth Luke s - mg tablet 11:22: daily. Medica l 14 [place] torsemide 2020- No 20mg QD Take [address] (DEMADEX) 11-28 by mouth [facility] - 20 MG 09:41: 00:00 daily. Medical tablet 26 :00 [place] irbesartan 2020- No 150mg QD Take [address] (AVAPRO) 11-28 mg by [facility] - 150 MG 09:41: 00:00 mouth Medical tablet 26 :00 nightly. [place] nitrofurant 2020- No 50mg Q.25D Take [address] [address] oin 11-28 by mouth 4 [facility] - (MACRODANTI 09:41: 00:00 (four) Med ical N) 50 MG 26 :00 times Center capsule daily. simvastatin 2020- No hyperlipide 10mg QD Take [address] (ZOCOR) 10 11-28 jag by mouth Luke s - MG tablet 09:41: 00:00 nightly. Med ical 26 :00 Center amLODIPine 2021- Yes 10mg QD Take [address] (NORVASC) 11-28 tablet (10 Reynaldo es - 10 MG 00:00: 23:59 mg total) Medica l tablet 00 :00 by mouth Center daily. aspirin 81 2021- Yes 81mg QD Take [address] MG chewable 11-28 tablet (81 L ukes - tablet 00:00: 23:59 mg total) Medic al 00 :00 by mouth Center daily. atorvastati 2021- Yes 80mg QD Take [address] n (LIPITOR) 11-28 tablet (80 L ukes - 80 MG 00:00: 23:59 mg total) Medica l tablet 00 :00 by mouth Center nightly. cyanocobala 2021- Yes 1000ug QD Take [address] min, 11-28 tablet [facility] - vitamin 00:00: 23:59 (1,000 mcg Med ical B-12, 1000 00 :00 total) by Cent er MCG tablet mouth daily. senna-docus 2021- Yes 1{tbl} Q.5D Take [address] ate 11-28 tablet by [facility]ukes - (SENOKOT S) 00:00: 23:59 mouth 2 Me dical 8.6-50 mg 00 :00 (two) Center per tablet times daily. levoFLOXaci 2020- No 250mg Q24H Take [address] n 11-28 tablet [facility] - (LEVAQUIN) 00:00: 23:59 (250 mg Med ical 250 MG 00 :00 total) by Center tablet mouth daily for 8 days. Vital Signs Vital Name Observation Time Observation Value Comments Source Systolic blood 2020-11-28 07:10:00 145 mm[Hg] [facility] Diastolic blood 2020-11-28 07:10:00 75 mm[Hg] [facility] Heart rate 2020-11-28 07:10:00 84 /min [facility] Body temperature 2020-11-28 07:10:00 36.39 Nicol [facility] Respiratory rate 2020-11-28 07:10:00 18 /min [facility] Oxygen saturation in 2020-11-28 07:10:00 96 /min [facility] - Arterial blood by Medical Ce nter Pulse oximetry Body height 2020-11-22 04:03:00 152.4 cm [facility] Body weight 2020-11-22 04:03:00 62.596 kg [facility] BMI 2020-11-22 04:03:00 26.95 kg/m2 [facility] Procedures Procedure Date / Time Performing Clinician Source Performed POCT-GLUCOSE METER 2020-11-28 07:43:00 Shaka [facility] CBC W/PLT COUNT & AUTO 2020-11-28 05:56:00 Freddie Brewer [facility] BASIC METABOLIC PANEL 2020-11-28 05:56:00 Freddie Brewer [address] POCT-GLUCOSE METER 2020-11-27 21:23:00 ShakaYaredeb [facility] US RENAL COMPLETE 2020-11-27 16:25:[address] [facility] POCT-GLUCOSE METER 2020-11-27 11:47:00 Shaka Brodie [facility] POCT-GLUCOSE METER 2020-11-27 09:07:00 [facility] CBC W/PLT COUNT & AUTO 2020-11-27 06:31:00 Freddie Brewer [facility] BASIC METABOLIC PANEL 2020-11-27 04:34:00 Freddie Brewer [facility] ([address] [place] [address] POCT-GLUCOSE METER 2020-11-26 21:32:00 [facility] POCT-GLUCOSE METER 2020-11-26 17:26:00 ShakaBrodie dumont [facility] POCT-GLUCOSE METER 2020-11-26 12:49:00 Shaka [facility] URINALYSIS W/ REFLEX 2020-11-26 09:59:00 Freddie Brewer [facility] URINE CULTURE [facility] URINE CULTURE 2020-11-26 09:59:00 Freddie Brewer [facility] POCT-GLUCOSE METER 2020-11-26 07:35:00 Shaka [facility] CBC W/PLT COUNT & AUTO 2020-11-26 03:40:00 Freddie Brewer [facility] BASIC METABOLIC PANEL 2020-11-26 03:40:00 Freddie Brewer [facility] () [facility] POCT-GLUCOSE METER 2020-11-25 21:43:00 Shaka [facility] URINALYSIS WITHOUT 2020-11-25 17:51:[address] [facility] POCT-GLUCOSE METER 2020-11-25 17:48:00 Shaka Brodie [facility] US RENAL COMPLETE 2020-11-25 15:16:00 Valerie [facility] POCT-GLUCOSE METER 2020-11-25 11:43:00 Shaka [facility] POCT-GLUCOSE METER 2020-11-25 07:46:00 [facility] CBC W/PLT COUNT & AUTO 2020-11-25 04:09:00 Freddie Brewer [facility] BASIC METABOLIC PANEL 2020-11-25 04:09:00 Freddie Brewer [facility] ([address] [place] [address] POCT-GLUCOSE METER 2020-11-24 21:48:00 Shaka [facility] POCT-GLUCOSE METER 2020-11-24 17:36:00 Shaka [facility] POCT-GLUCOSE METER 2020-11-24 11:57:00 Brodie Matt [facility] POCT-GLUCOSE METER 2020-11-24 07:17:00 Daniel [facility] CBC W/PLT COUNT & AUTO 2020-11-24 03:45:00 Freddie Brewer [facility] BASIC METABOLIC PANEL 2020-11-24 03:45:00 Freddie Brewer [facility] () [facility] POCT-GLUCOSE METER 2020-11-23 20:57:00 Daniel [facility] POCT-GLUCOSE METER 2020-11-23 18:11:00 Daniel [facility] CT BRAIN WITHOUT IV 2020-11-23 17:19:00 Sobeida Lares [facility] CONTRAST [facility] POCT-GLUCOSE METER 2020-11-23 13:03:00 Daniel [facility] URINALYSIS WITH 2020-11-23 10:36:00 Pat Osman [facility] - MICROSCOPIC IF INDICATED [facility] Center CREATININE, RANDOM URINE 2020-11-23 10:36:00 Freddie Brewer [facility] UREA NITROGEN, RANDOM 2020-11-23 10:36:00 Freddie Brewer [facility] URINALYSIS MICROSCOPIC 2020-11-23 10:36:00 Pat Osman ma [facility] SODIUM, RANDOM URINE 2020-11-23 10:35:00 Basil Byrd [facility] CREATININE, RANDOM URINE 2020-11-23 10:35:00 Freddie Brewer [facility] OSMOLALITY, URINE 2020-11-23 10:35:00 Freddie Brewer [facility] POTASSIUM, RANDOM URINE 2020-11-23 10:35:00 Freddie Brewer [facility] PROTEIN, RANDOM URINE 2020-11-23 10:35:00 Freddie Brewer [facility] URINE CULTURE 2020-11-23 10:35:00 Freddie Brewer [facility] POCT-P2Y12 PLATELET 2020-11-23 03:48:00 Sobeida Lares [facility] CBC W/PLT COUNT & AUTO 2020-11-23 03:48:00 Freddie Brewer [facility] BASIC METABOLIC PANEL 2020-11-23 03:48:00 Freddie Brewer [facility] (7) [facility] POCT-GLUCOSE METER 2020-11-22 20:52:00 Daniel [facility] 2D ECHO W/ DOPPLER 2020-11-22 18:32:32 Devendra Wagner [facility] (CW/PW/COLOR) [facility] POCT-GLUCOSE METER 2020-11-22 16:15:00 Daniel [facility] POCT-GLUCOSE METER 2020-11-22 13:20:00 Daniel [facility] CTA BRAIN 2020-11-22 12:39:00 Sobeida aLres [facility] MR BRAIN WITHOUT IV 2020-11-22 11:26:[address] [facility] ECG 12-LEAD 2020-11-22 07:46:51 Devendra Wagner [facility] POCT-GLUCOSE METER 2020-11-22 07:21:00 Valarie Chaves [facility] MAGNESIUM 2020-11-22 05:09:00 Pat Osman [facility] HEPATIC FUNCTION PANEL 2020-11-22 05:09:00 Pat Osman ma [facility] POCT-P2Y12 PLATELET 2020-11-22 05:09:00 Devendra Wagner [facility] VITAMIN B12 AND FOLATE 2020-11-22 05:09:00 Bernard Devendra Corbetto [facility] RPR 2020-11-22 05:09:00 Bernard Devendra [facility] HEMOGLOBIN A1C 2020-11-22 05:09:00 Bernard Devendra [facility] TROPONIN I 2020-11-22 05:09:00 [facility] 2020-11-22 05:09[facility]00 [facility] CBC W/PLT COUNT & AUTO 2020-11-22 05:09:00 Pat Osman ma [facility] BASIC METABOLIC PANEL 2020-11-22 05:09:00 Pat Osman [facility] (7) [facility] LIPID PANEL 2020-11-22 05:09:00 [facility] TSH/FREE T4 IF INDICATED 2020-11-22 05:09:00 [facility]/INR 2020-11-22 05:09:[address] [facility] SARS-COV2/RT-PCR ([facility] & 2020-11-22 03:50:[facility] REPORT OF PROCEDURE - 2020-11-22 00:00:00 Provider, Default [facility] ENDOSCOPY SCAN Scanning [facility] Plan of Care Planned Activity Planned Date Details Comments Source Future Scheduled 2020-11-05 DEPRESSION SCREENING [facility] Test 00:00:00 (12+) [code = [facility] Center DEPRESSION SCREENING (12+)] Future Scheduled 2020-11-05 Medicare IPPE (WELCOME [facility] 00:00:00 TO MEDICARE) [code = [facility] Center Medicare IPPE (WELCOME TO MEDICARE)] Future Scheduled 2020-07-06 INFLUENZA VACCINE (#1) [facility] Test 00:00:00 [code = INFLUENZA Medical Ce nter VACCINE (#1)] Future Scheduled 2000 PNEUMOCOCCAL 65+ YRS [facility] - Test 00:00:00 (1 of 1 - [facility] Center [id number] PCV13) [code = PNEUMOCOCCAL 65+ YRS (1 of 1 - [id number] PCV13)] Future Scheduled 1985 SHINGLES VACCINES ([address] [facility] - Test 00:00:00 of 2) [code = SHINGLES Medic al Center VACCINES (1 of 2)] Future Scheduled 1954 DTAP/TDAP/TD VACCINES [facility] - Test 00:00:00 (1 - Tdap) [code = Medical C enter DTAP/TDAP/TD VACCINES (1 - Tdap)] Encounters Start End Encounter Admission Attending Care Care Encounter Source Date/Time Date/Time Type Type Clinicians Facility Department ID 2020-12-13 2020-12-13 Outpatient [facility] [id number]00 [facility] ent Clinics 2020-12-13 2020-12-13 Outpatient [facility] [id number] [facility]00 [facility] ent Clinics Results Test Description Test Time Test Comments Results Result Comments Source Urine culture 2020-11-28 11:57:00 Test Item Value Reference Range Interpretation Comme nts Result (test code = 6463-4) [facility] [id number] 11:54:00 Test Item Value Reference Interpretation Comments Range CULTURE (BEAKER) (test ESCHERICHIA COLI A > 100,000 col/mL code = 1095) Escherichia col i Amikacin (test code = S 1) Ampicillin + Sulbactam S (test code = 6) Aztreonam (test code = S 32) Cefepime (test code = S 51) Cefoxitin (test code = S 68) Ceftazidime (test code S = 27) Ceftriaxone (test code S = 52) Ertapenem (test code = S 38) Gentamicin (test code S = 18) Levofloxacin (test S code = 22) Meropenem (test code = S 34) Nitrofurantoin (test S code = 23) Piperacillin + S Tazobactam (test code = 29) Tetracycline (test S code = 2) Tobramycin (test code S = 25) Trimethoprim + R Sulfamethoxazole (test code = 47) CULTURE (Vello AppAKER) (test A 20-29 ,000 col/mL code = 1095) Enterococcus faecalis <10,000 col/mL Gram negative neal of a second typePOC-Glucose [id number] 07:54:00 Test Item Value Reference Range Interpretation Comments POC-Glucose Meter 81 mg/dL 70-110 : TESTED A T [facility] 6720 (test code = 1538) ALLI Oliver [facility] [place], [address]: Certified Home Health Aide/Techni won ID = [id number] for EVELYNE CASANOVA IN Lab Interpretation Normal (test code = 02447-8) [facility] [id number] 07:54:00 Test Item Value Reference Range Interpretation Comments POC-GLUCOSE METER 81 mg/dL 70-110 : TESTED A T [facility] 6720 (BEAKER) ([place], [address]: code = 1538) Certified Home Health Aide/Techni won ID = [id number] for EVELYNE DAVIS IN Basic Metabolic [id number] 07:10:00 Test Item Value Reference Range Interpretation Comments Sodium (test code = 140 meq/L 772-951 4561-2) Potassium (test code = 4.0 meq/L 3.5-5.1 2823-3) Chloride (test code = 107 meq/L 98-107 2075-0) CO2 (test code = 25 meq/L 22-29 2028-9) BUN (test code = 22 mg/dL 7-21 H 3094-0) Creatinine (test code 1.29 mg/dL 0.57-1.25 H = 2160-0) Glucose (test code = 84 mg/dL 70-105 2345-7) Calcium (test code = 9.1 mg/dL 8.4-10.2 58265-6) EGFR (test code = 39 mL/min/1.73 [place] [address]-6) NOT ACCURATE CREATININE CLEARANCE IN PREDICTING GLOMERULAR FILTRATION RATE . ESTIMATED GFR I S NOT APPLICABLE FOR DIALYSIS PATIENTS. ALEX (test code = ALEX) Certified Home Health Aide ID - [id number] Lab Interpretation Abnormal (test code = 26533-7) [facility] METABOLIC [id number] 07:10:00 Test Item Value Reference Range Interpretation Comments SODIUM (BEAKER) 140 meq/L 136-145 (test code = 381) POTASSIUM (BEAKER) 4.0 meq/L 3.5-5.1 (test code = 379) CHLORIDE (BEAKER) 107 meq/L 98-107 (test code = 382) CO2 (BEAKER) (test 25 meq/L 22-29 code = 355) BLOOD UREA NITROGEN 22 mg/dL 7-21 H (BEAKER) (test code = 354) CREATININE (BEAKER) 1.29 mg/dL 0.57-1.25 H (test code = 358) GLUCOSE RANDOM 84 mg/dL 70-105 (BEAKER) (test code = 652) CALCIUM (BEAKER) 9.1 mg/dL 8.4-10.2 (test code = 697) EGFR (BEAKER) (test 39 mL/min/1.73 ESTIMA [place] GFR IS code = 1092) sq m NOT ACCURATE CREATININE CLEARANCE IN PREDICTING GLOMERULAR FILTRATION RATE . ESTIMATED GFR I S NOT APPLICABLE FOR DIALYSIS PATIEN TS. Certified Home Health Aide ID - [id number] with platelet count + automated [id number] 06:27:00 Test Item Value Reference Range Interpretation Comments WBC (test code = 6690-2) 14.0 See_Comment H [A utomated message] The system [employer] generated this result transmitted ref erence range: 3.5 - 10 .5 K/L. The refe rence range was not u sed to interpret this result as normal/abnor mal. RBC (test code = 789-8) 4.34 See_Comment [Au tomated message] The system [employer] generated this result transmitted ref erence range: 3.93 - 5 .22 M/L. The refe rence range was not u sed to interpret this result as normal/abnor mal. MCHC (test code = 786-4) 33.1 See_Comment [A utomated message] The system [employer] generated this result transmitted ref erence range: 32.2 - 3 5.5 GM/DL. The refe rence range was not u sed to interpret this result as normal/abnor mal. Hematocrit (test code = 38.4 % 34.1-44.9 4544-3) MCV (test code = 787-2) 88.5 fL 79.4-94.8 MCH (test code = 785-6) 29.3 pg 25.6-32.2 RDW (test code = 788-0) 13.7 % 11.7-14.4 Platelets (test code = 274 See_Comment [Aut omated message] 777-3) The system [employer] generated this result transmitted ref erence range: 150 - 45 0 K/CU MM. The referen ce range was not u sed to interpret this result as normal/abnor mal. MPV (test code = 9.9 fL 9.4-12.3 51776-7) nRBC (test code = 413) 0 See_Comment [Aut omated message] The system [employer] generated this result transmitted ref erence range: 0 - 0 /1 00 WBC. The refere nce range was not u sed to interpret this result as normal/abnor mal. % Neutros (test code = 69 % 429) % Lymphs (test code = 20 % 430) % Monos (test code = 8 % 431) % Eos (test code = 432) 2 % % Baso (test code = 437) 1 % # Neutros (test code = 9.67 See_Comment H [Aut omated message] 670) The system [employer] generated this result transmitted ref erence range: 1.56 - 6 .13 K/L. The refe rence range was not u sed to interpret this result as normal/abnor mal. # Lymphs (test code = 2.82 See_Comment [Auto mated message] 414) The system [employer] generated this result transmitted ref erence range: 1.18 - 3 .74 K/L. The refe rence range was not u sed to interpret this result as normal/abnor mal. # Monos (test code = 1.08 See_Comment H [Autom ated message] 415) The system [employer] generated this result transmitted ref erence range: 0.24 - 0 .36 K/L. The refe rence range was not u sed to interpret this result as normal/abnor mal. # Eos (test code = 416) 0.32 See_Comment [Au tomated message] The system [employer] generated this result transmitted ref erence range: 0.04 - 0 .36 K/L. The refe rence range was not u sed to interpret this result as normal/abnor mal. # Baso (test code = 417) 0.10 See_Comment H [A utomated message] The system [employer] generated this result transmitted ref erence range: 0.01 - 0 .08 K/L. The refe rence range was not u sed to interpret this result as normal/abnor mal. Immature 0 % 0-1 Granulocytes-Relative (test code = 2801) Lab Interpretation (test Abnormal code = 22935-8) [facility] W/PLT COUNT & AUTO [id number] 06:27:00 Test Item Value Reference Range Interpretation Comments WHITE BLOOD CELL COUNT (BEAKER) 14.0 K/ L 3.5-10.5 H (test code = 775) RED BLOOD CELL COUNT (BEAKER) 4.34 M/ L 3.93-5.22 (test code = 761) HEMOGLOBIN (BEAKER) (test code = 12.7 GM/DL 11.2-15.7 410) HEMATOCRIT (BEAKER) (test code = 38.4 % 34.1-44.9 411) MEAN CORPUSCULAR VOLUME (BEAKER) 88.5 fL 79.4-94.8 (test code = 753) MEAN CORPUSCULAR HEMOGLOBIN 29.3 pg 25.6-32.2 (BEAKER) (test code = 751) MEAN CORPUSCULAR HEMOGLOBIN CONC 33.1 GM/DL 32.2-35.5 (BEAKER) (test code = 752) RED CELL DISTRIBUTION WIDTH 13.7 % 11.7-14.4 (BEAKER) (test code = 412) PLATELET COUNT (BEAKER) (test 274 K/CU MM 150-450 code = 756) MEAN PLATELET VOLUME (BEAKER) 9.9 fL 9.4-12.3 (test code = 754) NUCLEATED RED BLOOD CELLS 0 /100 WBC 0-0 (BEAKER) (test code = 413) NEUTROPHILS RELATIVE PERCENT 69 % (BEAKER) (test code = 429) LYMPHOCYTES RELATIVE PERCENT 20 % (BEAKER) (test code = 430) MONOCYTES RELATIVE PERCENT 8 % (BEAKER) (test code = 431) EOSINOPHILS RELATIVE PERCENT 2 % (BEAKER) (test code = 432) BASOPHILS RELATIVE PERCENT 1 % (BEAKER) (test code = 437) NEUTROPHILS ABSOLUTE COUNT 9.67 K/ L 1.56-6.13 H (BEAKER) (test code = 670) LYMPHOCYTES ABSOLUTE COUNT 2.82 K/ L 1.18-3.74 (BEAKER) (test code = 414) MONOCYTES ABSOLUTE COUNT (BEAKER) 1.08 K/ L 0.24-0.36 H (test code = 415) EOSINOPHILS ABSOLUTE COUNT 0.32 K/ L 0.04-0.36 (BEAKER) (test code = 416) BASOPHILS ABSOLUTE COUNT (BEAKER) 0.10 K/ L 0.01-0.08 H (test code = 417) IMMATURE GRANULOCYTES-RELATIVE 0 % 0-1 PERCENT (BEAKER) (test code = 2801) POCT-GLUCOSE [id number] 21:35:00 Test Item Value Reference Range Interpretation Comments POC-GLUCOSE METER 91 mg/dL 70-110 : TESTED A T [facility] 6720 (BEAKER) (test code = [place] Flood [facility], 1538) [id number]: Certified Home Health Aide/Techni won ID = [id number] for FAROOQ ISPASQUALE U/S, RENAL, [id number] 17:52:00Reason for exam:->[facility] : 1935 Sex: FFINAL REPORT TECHNIQUE: Grayscale ultrasound of the kidneys and bladder.INDICATION: KIM. COMPARISON: 11/25/2020. FINDINGS: RIGHT KIDNEY: The right kidney measures 8.5 cm. Cortical thickness measures 1.1 cm. No solid mass lesions. No hydronephrosis. Renal artery and vein are patent. LEFT KIDNEY: Left kidney is atrophic. The left kidney measures 8.5 cm. Cortical thickness measures 0.5 cm. No solid mass lesions. Mild hydronephrosis, unchanged. Renal artery and vein are patent. BLADDER: Hernandes catheter in the decompressed urinary bladder.. Small volume ascites in the pelvis.IMPRESSION:Atrophic left kidney with mild left-sided hydronephrosis, unchanged. Small volume ascites.. Signed: Dalia Leigh MDRgenaro Verified Date/Time: 11/27/2020 17:52:29 Reading Location: [facility] C013Y CT Body Reading Room US renal [id number] 17:52:00 Interface, External Ris In - 11/27/2020 7:38 PM CSTFINAL REPORT TECHNIQUE: Grayscale ultrasound of the kidneys and bladder. INDICATION: KIM. COMPARISON: 11/25/2020. FINDINGS: RIGHT KIDNEY: The right kidney measures 8.5 cm. Cortical thickness measures 1.1 cm. No solid mass lesions. No hydronephrosis. Renal artery and vein are patent. LEFT KIDNEY: Left kidney is atrophic. The left kidney measures 8.5 cm. Cortical thickness measures 0.5 cm. No solid mass lesions. Mild hydronephrosis, unchanged. Renal artery and vein are patent. BLADDER: Hernandes catheter in the decompressed urinary bladder.. Small volume ascites in the pelvis. IMPRESSION:Atrophic left kidney with mild left- sided hydronephrosis, unchanged. Small volume ascites.. Signed: Dalia Leigh MDReport Verified Date/Time: 11/27/2020 17:52:29 Reading Location: [facility] B1 C013Y CT Body Reading [facility] [id number] 11:59:00 Test Item Value Reference Range Interpretation Comments POC-GLUCOSE METER 87 mg/dL 70-110 : TESTED A T [facility] 6720 (BEMARY) (test code = AGUSTIN ESTEVEZ [place], 1538) [id number]: Certified Home Health Aide/Techni won ID = [id number] for LOGAN KELLER POCT-GLUCOSE [id number] 09:19:00 Test Item Value Reference Range Interpretation Comments POC-GLUCOSE METER 79 mg/dL 70-110 : TESTED A T [facility] 6720 (BEAKER) (test code = AGUSTIN Flood [facility], 1538) [id number]: Certified Home Health Aide/Techni won ID = [id number] for LOGAN KELLER CBC W/PLT COUNT & AUTO [id number] 07:23:00 Test Item Value Reference Range Interpretation Comments WHITE BLOOD CELL COUNT (BEAKER) 11.3 K/ L 3.5-10.5 H (test code = 775) RED BLOOD CELL COUNT (BEAKER) 4.44 M/ L 3.93-5.22 (test code = 761) HEMOGLOBIN (BEAKER) (test code = 12.8 GM/DL 11.2-15.7 410) HEMATOCRIT (BEAKER) (test code = 40.9 % 34.1-44.9 411) MEAN CORPUSCULAR VOLUME (BEAKER) 92.1 fL 79.4-94.8 (test code = 753) MEAN CORPUSCULAR HEMOGLOBIN 28.8 pg 25.6-32.2 (BEAKER) (test code = 751) MEAN CORPUSCULAR HEMOGLOBIN CONC 31.3 GM/DL 32.2-35.5 L (BEAKER) (test code = 752) RED CELL DISTRIBUTION WIDTH 13.6 % 11.7-14.4 (BEAKER) (test code = 412) PLATELET COUNT (BEAKER) (test 249 K/CU MM 150-450 code = 756) MEAN PLATELET VOLUME (BEAKER) 10.1 fL 9.4-12.3 (test code = 754) NUCLEATED RED BLOOD CELLS 0 /100 WBC 0-0 (BEAKER) (test code = 413) NEUTROPHILS RELATIVE PERCENT 59 % (BEAKER) (test code = 429) LYMPHOCYTES RELATIVE PERCENT 28 % (BEAKER) (test code = 430) MONOCYTES RELATIVE PERCENT 9 % (BEAKER) (test code = 431) EOSINOPHILS RELATIVE PERCENT 4 % (BEAKER) (test code = 432) BASOPHILS RELATIVE PERCENT 1 % (BEAKER) (test code = 437) NEUTROPHILS ABSOLUTE COUNT 6.63 K/ L 1.56-6.13 H (BEAKER) (test code = 670) LYMPHOCYTES ABSOLUTE COUNT 3.10 K/ L 1.18-3.74 (BEAKER) (test code = 414) MONOCYTES ABSOLUTE COUNT (BEAKER) 1.00 K/ L 0.24-0.36 H (test code = 415) EOSINOPHILS ABSOLUTE COUNT 0.43 K/ L 0.04-0.36 H (BEAKER) (test code = 416) BASOPHILS ABSOLUTE COUNT (BEAKER) 0.09 K/ L 0.01-0.08 H (test code = 417) IMMATURE GRANULOCYTES-RELATIVE 0 % 0-1 PERCENT (BEAKER) (test code = 2801) BASIC METABOLIC [id number] 05:51:00 Test Item Value Reference Range Interpretation Comments SODIUM (BEAKER) 137 meq/L 136-145 (test code = 381) POTASSIUM (BEAKER) 4.2 meq/L 3.5-5.1 Specimen slightly (test code = 379) hemolyzed CHLORIDE (BEAKER) 105 meq/L 98-107 (test code = 382) CO2 (BEAKER) (test 24 meq/L 22-29 code = 355) BLOOD UREA NITROGEN 25 mg/dL 7-21 H (BEAKER) (test code = 354) CREATININE (BEAKER) 1.31 mg/dL 0.57-1.25 H Specimen slightly (test code = 358) hemolyzed GLUCOSE RANDOM 83 mg/dL 70-105 (BEAKER) (test code = 652) CALCIUM (BEAKER) 9.0 mg/dL 8.4-10.2 (test code = 697) EGFR (BEAKER) (test 39 mL/min/1.73 [place] GFR IS code = 1092) sq m NOT ACCURATE CREATININE CLEARANCE IN PREDICTING GLOMERULAR FILTRATION RATE . ESTIMATED GFR I S NOT APPLICABLE FOR DIALYSIS PATIEN TS. Certified Home Health Aide ID - ADMINPOCT-GLUCOSE [id number] 23:41:00 Test Item Value Reference Range Interpretation Comments POC-GLUCOSE METER 122 mg/dL 70-110 H : TESTED A T [facility] 6720 (BEAKER) (test code = AGUSTIN ESTEVEZ [place], 1538) 7[address]: Certified Home Health Aide/Techni won ID = [id number] for DE NNIS, PASQUALE POCT-GLUCOSE [id number] 17:39:00 Test Item Value Reference Range Interpretation Comments POC-GLUCOSE METER 90 mg/dL 70-110 : TESTED A T [facility] 6720 (BEAKER) (test code [facility], = 1538) [address]: Certified Home Health Aide/Techni won ID = [id number] for VINCENT ROBLES POCT-GLUCOSE [id number] 13:02:00 Test Item Value Reference Range Interpretation Comments POC-GLUCOSE METER 120 mg/dL 70-110 H : TESTED A T [facility] 6720 (BEMARY) ([facility] 15[facility] 49[address]: Certified Home Health Aide/Techni won ID = [id number] for VINCENT ROBLES Urinalysis w/Microscopic + Reflex to [id number] 10:53:00 Test Item Value Reference Range Interpretation Comments Color, UA (test code Yellow = 5778-6) Clarity, UA (test Clear code = 5767-9) Specific [place], UA 1.023 1.001-1.035 (test code = 5811-5) pH, UA (test code = 6.0 5.0-8.0 5803-2) Protein, UA (test 30 mg/dL Negative A code = 15771-0) Glucose, UA (test Negative Negative code = 365) Ketones, UA (test Negative Negative code = 2514-8) Bilirubin, UA (test Negative Negative code = 06237-9) Blood, UA (test code Moderate Negative A = 93344-6) Nitrite, UA (test Negative Negative code = 5802-4) Leukocytes, UA (test Large Negative A code = 5799-2) Urobilinogen, UA 0.2 mg/dL 0.2-1 (test code = 55085-3) RBC, UA (test code = 15 See_Comment [Autom ated 71674-6) message] The system which generated this result transmitted reference range : /HPF. The reference range was not used to interpret this result as normal/abnormal . WBC, UA (test code = 60 See_Comment [Autom ated 5821-4) message] The system which generated this result transmitted reference range : /HPF. The reference range was not used to interpret this result as normal/abnormal . Bacteria, UA (test Occasional code = 47088-1) Mucus (test code = Rare 8247-9) Specimen Source (test code = 2795) ALEX (test code = ALEX) Certified Home Health Aide ID - [auto]Certified Home Health Aide ID - tech Lab Interpretation Abnormal (test code = 56533-7) [facility] [id number] 10:53:00 Test Item Value Reference Range Interpretation Comments COLOR (BEAKER) (test code = 470) Yellow CLARITY (BEAKER) (test code = 469) Clear SPECIFIC GRAVITY UA (BEAKER) (test 1.023 1.001-1.035 code = 468) PH UA (BEAKER) (test code = 467) 6.0 5.0-8.0 PROTEIN UA (BEAKER) (test code = 30 mg/dL Negative A 464) GLUCOSE UA (BEAKER) (test code = Negative Negative 365) KETONES UA (BEAKER) (test code = Negative Negative 371) BILIRUBIN UA (BEAKER) (test code = Negative Negative 462) BLOOD UA (BEAKER) (test code = Moderate Negative A 461) NITRITE UA (BEAKER) (test code = Negative Negative 465) LEUKOCYTE ESTERASE UA (BEAKER) Large Negative A (test code = 466) UROBILINOGEN UA (BEAKER) (test 0.2 mg/dL 0.2-1.0 code = 463) RBC UA (BEAKER) (test code = 519) 15 /HPF WBC UA (BEAKER) (test code = 520) 60 /HPF BACTERIA (BEAKER) (test code = Occasional 517) MUCUS (BEAKER) (test code = 1574) Rare SOURCE(BEAKER) (test code = 2795) Certified Home Health Aide ID - [auto]Certified Home Health Aide ID - techPOCT-GLUCOSE [id number] 07:47:00 Test Item Value Reference Range Interpretation Comments POC-GLUCOSE METER 88 mg/dL 70-110 : TESTED A T [facility] 6720 (BEAKER) (test code [facility], = 1538) 20785: Certified Home Health Aide/Techni won ID = [id number] for VINCENT ROBLES BASIC METABOLIC [id number] 07:23:00 Test Item Value Reference Range Interpretation Comments SODIUM (BEAKER) 137 meq/L 136-145 (test code = 381) POTASSIUM (BEAKER) 3.2 meq/L 3.5-5.1 L (test code = 379) CHLORIDE (BEAKER) 99 meq/L 98-107 (test code = 382) CO2 (BEAKER) (test 26 meq/L 22-29 code = 355) BLOOD UREA NITROGEN 27 mg/dL 7-21 H (BEAKER) (test code = 354) CREATININE (BEAKER) 1.45 mg/dL 0.57-1.25 H (test code = 358) GLUCOSE RANDOM 83 mg/dL 70-105 (BEAKER) (test code = 652) CALCIUM (BEAKER) 9.3 mg/dL 8.4-10.2 (test code = 697) EGFR (BEAKER) (test 34 mL/min/1.73 [place] GFR IS code = 1092) sq m NOT ACCURATE CREATININE CLEARANCE IN PREDICTING GLOMERULAR FILTRATION RATE . ESTIMATED GFR I S NOT APPLICABLE FOR DIALYSIS PATIEN TS. Certified Home Health Aide ID - PIAYA LCBC W/PLT COUNT & AUTO [id number] 06:42:00 Test Item Value Reference Range Interpretation Comments WHITE BLOOD CELL COUNT (BEAKER) 16.7 K/ L 3.5-10.5 H (test code = 775) RED BLOOD CELL COUNT (BEAKER) 4.71 M/ L 3.93-5.22 (test code = 761) HEMOGLOBIN (BEAKER) (test code = 13.6 GM/DL 11.2-15.7 410) HEMATOCRIT (BEAKER) (test code = 41.2 % 34.1-44.9 411) MEAN CORPUSCULAR VOLUME (BEAKER) 87.5 fL 79.4-94.8 (test code = 753) MEAN CORPUSCULAR HEMOGLOBIN 28.9 pg 25.6-32.2 (BEAKER) (test code = 751) MEAN CORPUSCULAR HEMOGLOBIN CONC 33.0 GM/DL 32.2-35.5 (BEAKER) (test code = 752) RED CELL DISTRIBUTION WIDTH 13.4 % 11.7-14.4 (BEAKER) (test code = 412) PLATELET COUNT (BEAKER) (test 262 K/CU MM 150-450 code = 756) MEAN PLATELET VOLUME (BEAKER) 10.5 fL 9.4-12.3 (test code = 754) NUCLEATED RED BLOOD CELLS 0 /100 WBC 0-0 (BEAKER) (test code = 413) NEUTROPHILS RELATIVE PERCENT 74 % (BEAKER) (test code = 429) LYMPHOCYTES RELATIVE PERCENT 15 % (BEAKER) (test code = 430) MONOCYTES RELATIVE PERCENT 8 % (BEAKER) (test code = 431) EOSINOPHILS RELATIVE PERCENT 2 % (BEAKER) (test code = 432) BASOPHILS RELATIVE PERCENT 1 % (BEAKER) (test code = 437) NEUTROPHILS ABSOLUTE COUNT 12.40 K/ L 1.56-6.13 H (BEAKER) (test code = 670) LYMPHOCYTES ABSOLUTE COUNT 2.46 K/ L 1.18-3.74 (BEAKER) (test code = 414) MONOCYTES ABSOLUTE COUNT (BEAKER) 1.39 K/ L 0.24-0.36 H (test code = 415) EOSINOPHILS ABSOLUTE COUNT 0.28 K/ L 0.04-0.36 (BEAKER) (test code = 416) BASOPHILS ABSOLUTE COUNT (BEAKER) 0.11 K/ L 0.01-0.08 H (test code = 417) IMMATURE GRANULOCYTES-RELATIVE 0 % 0-1 PERCENT (BEAKER) (test code = 2801) POCT-GLUCOSE [id number] 21:55:00 Test Item Value Reference Range Interpretation Comments POC-GLUCOSE METER 105 mg/dL 70-110 : TESTED A T [facility] 6720 (BEAKER) (test code = AGUSTIN ESTEVE[place], 1538) 434[address]: Certified Home Health Aide/Techni won ID = [id number] for EVETTE DAVIES Urinalysis without [id number] 18:32:00 Test Item Value Reference Range Interpretation Comments Color, UA (test code = Yellow 5778-6) Clarity, UA (test code = Clear 5767-9) Specific [place], UA (test 1.015 1.001-1.035 code = 5811-5) pH, UA (test code = 6.5 5.0-8.0 5803-2) Protein, UA (test code = 20 mg/dL Negative A 71235-3) Glucose, UA (test code = Negative Negative 365) Ketones, UA (test code = Negative Negative 2514-8) Bilirubin, UA (test code = Negative Negative 93315-6) Blood, UA (test code = Moderate Negative A 45703-9) Nitrite, UA (test code = Negative Negative 5802-4) Leukocytes, UA (test code Large Negative A = 5799-2) Urobilinogen, UA (test 0.2 mg/dL 0.2-1 code = 46331-0) Specimen Source (test code = 2795) ALEX (test code = ALEX) Certified Home Health Aide ID - [auto] Lab Interpretation (test Abnormal code = 32508-3) [facility] [id number] 18:32:00 Test Item Value Reference Range Interpretation Comments COLOR (BEAKER) (test code = 470) Yellow CLARITY (BEAKER) (test code = 469) Clear SPECIFIC GRAVITY UA (BEAKER) (test 1.015 1.001-1.035 code = 468) PH UA (BEAKER) (test code = 467) 6.5 5.0-8.0 PROTEIN UA (BEAKER) (test code = 20 mg/dL Negative A 464) GLUCOSE UA (BEAKER) (test code = Negative Negative 365) KETONES UA (BEAKER) (test code = Negative Negative 371) BILIRUBIN UA (BEAKER) (test code = Negative Negative 462) BLOOD UA (BEAKER) (test code = 461) Moderate Negative A NITRITE UA (BEAKER) (test code = Negative Negative 465) LEUKOCYTE ESTERASE UA (BEAKER) Large Negative A (test code = 466) UROBILINOGEN UA (BEAKER) (test code 0.2 mg/dL 0.2-1.0 = 463) SOURCE(BEAKER) (test code = 2795) Certified Home Health Aide ID - [auto]Potassium, random [id number] 17:59:00 Test Item Value Reference Range Interpretation Comments Potassium Urine 26.8 meq/L (test code = 2828-2) ALEX (test code = Reference Range: No ALEX) NormalsOperator ID - FSE [facility]Protein, random [id number] 17:59:00 Test Item Value Reference Range Interpretation Comments Protein, Urine (test code = 49 mg/dL 0-14 H 2888-6) ALEX (test code = ALEX) Certified Home Health Aide ID - FSE Lab Interpretation (test Abnormal code = 06835-7) [facility] [id number] 17:59:00 Test Item Value Reference Range Interpretation Comments Sodium Urine (test 98 meq/L code = 2955-3) ALEX (test code = Reference Range: No ALEX) NormalsOperator ID - FSE [facility] [id number] 17:59:00 Test Item Value Reference Range Interpretation Comments POC-GLUCOSE METER 84 mg/dL 70-110 : [facility] (BEAKER) (test code = AGUSTIN ESTEVEZ [place], 1538) 428[address]: Certified Home Health Aide/Techni won ID = [id number] for ROBERTO ENGLE CREATININE, RANDOM [id number] 17:59:00 Test Item Value Reference Range Interpretation Comments CREATININE URINE (BEAKER) (test 58.4 mg/dL code = 375) Reference Range: No NormalsOperator ID - FSEPOTASSIUM, RANDOM [id number] 17:59:00 Test Item Value Reference Range Interpretation Comments POTASSIUM URINE (BEAKER) (test 26.8 meq/L code = 195) Reference Range: No NormalsOperator ID - FSEPROTEIN, RANDOM [id number] 17:59:00 Test Item Value Reference Range Interpretation Comments PROTEIN, URINE (BEAKER) (test code = 49 mg/dL 0-14 H 1569) Certified Home Health Aide ID - FSESODIUM, RANDOM [id number] 17:59:00 Test Item Value Reference Range Interpretation Comments SODIUM URINE (BEAKER) (test code = 98 meq/L 243) Reference Range: No NormalsOperator ID - FSEU/S, RENAL, [id number] 17:08:00Reason for exam:->[facility] : 1935 Sex: FFINAL REPORT TECHNIQUE: Grayscale ultrasound of the kidneys and bladder.INDICATION: KIM. COMPARISON: None. FINDINGS: RIGHT KIDNEY: The right kidney measures 9.2 x 4.5 x 4 cm with a cortical thickness of 1.4 cm. No solid mass lesions. Mild hydronephrosis. Renal artery and vein are patent. LEFT KIDNEY: The left kidney measures 7.5 x 4.1 x 3.7 cm with a cortical thickness of 0.7 cm. No solid mass lesions. Mild hydronephrosis. Renal artery and vein are patent. BLADDER: The bladder volume is 640 mL with a large volume of debris and several septations. Aortic atherosclerosis. IMPRESSION: 1.There is mild bilateral hydronephrosis. The left kidney is small. 2.The bladder volume is distended at 640 mL and contains echogenic material. Some of this is nondependent, and bladder polyps or masses cannot be excluded. Some of this is hemorrhage. Consider either a CT of the abdomen and pelvis without and with intravenous contrast or cystoscopy for further evaluation. The findings were discussed with the patient's nurse, Chaparro, on 11/25/2020 at 5:07 PM. Signed: Fabio [facility] Hospitalort Verified Date/Time: 11/25/2020 17:08:22 Osmolality, [id number] 12:19:00 Test Item Value Reference Range Interpretation Comments Osmolality, Ur (test code 394 See_Comment [ Automated message] = 2695-5) The system [employer] generated this result transmitted ref erence range: 50-1,200 mOsm/kg mOsm/kg . The reference range was not used to int erpret this result as normal/abnormal . Lab Interpretation (test Normal code = 95980-5) [facility] HospitalOSMOLALITY, [id number] 12:19:00 Test Item Value Reference Range Interpretation Comments OSMOLALITY URINE (BEAKER) (test 394 mOsm/kg 50-1,200 mOsm/kg code = 614) POCT-GLUCOSE [id number] 12:09:00 Test Item Value Reference Range Interpretation Comments POC-GLUCOSE METER 111 mg/dL 70-110 H : TESTED A T [facility] 6720 (BEAKER) (test code = [facility], 1538) 80861: Certified Home Health Aide/Techni won ID = [id number] for YUVAL ROBERTO AMEZCUA BASIC METABOLIC [id number] 08:55:00 Test Item Value Reference Range Interpretation Comments SODIUM (BEAKER) 139 meq/L 136-145 (test code = 381) POTASSIUM (BEAKER) 3.5 meq/L 3.5-5.1 (test code = 379) CHLORIDE (BEAKER) 100 meq/L 98-107 (test code = 382) CO2 (BEAKER) (test 28 meq/L 22-29 code = 355) BLOOD UREA NITROGEN 26 mg/dL 7-21 H (BEAKER) (test code = 354) CREATININE (BEAKER) 1.76 mg/dL 0.57-1.25 H (test code = 358) GLUCOSE RANDOM 83 mg/dL 70-105 (BEAKER) (test code = 652) CALCIUM (BEAKER) 9.1 mg/dL 8.4-10.2 (test code = 697) EGFR (BEAKER) (test 28 mL/min/1.73 [place] GFR IS code = 1092) sq m NOT ACCURATE CREATININE CLEARANCE IN PREDICTING GLOMERULAR FILTRATION RATE . ESTIMATED GFR I S NOT APPLICABLE FOR DIALYSIS PATIEN TS. Certified Home Health Aide ID - KASEY MPOCT-GLUCOSE [id number] 08:01:00 Test Item Value Reference Range Interpretation Comments POC-GLUCOSE METER 83 mg/dL 70-110 : TESTED A T [facility] 6720 (BEAKER) (test code = [facility], 1538) 71426: Certified Home Health Aide/Techni won ID = [id number] for ROBERTO ENGLE CBC W/PLT COUNT & AUTO [id number] 06:23:00 Test Item Value Reference Range Interpretation Comments WHITE BLOOD CELL COUNT (BEAKER) 12.8 K/ L 3.5-10.5 H (test code = 775) RED BLOOD CELL COUNT (BEAKER) 4.66 M/ L 3.93-5.22 (test code = 761) HEMOGLOBIN (BEAKER) (test code = 13.6 GM/DL 11.2-15.7 410) HEMATOCRIT (BEAKER) (test code = 41.5 % 34.1-44.9 411) MEAN CORPUSCULAR VOLUME (BEAKER) 89.1 fL 79.4-94.8 (test code = 753) MEAN CORPUSCULAR HEMOGLOBIN 29.2 pg 25.6-32.2 (BEAKER) (test code = 751) MEAN CORPUSCULAR HEMOGLOBIN CONC 32.8 GM/DL 32.2-35.5 (BEAKER) (test code = 752) RED CELL DISTRIBUTION WIDTH 13.5 % 11.7-14.4 (BEAKER) (test code = 412) PLATELET COUNT (BEAKER) (test 238 K/CU MM 150-450 code = 756) MEAN PLATELET VOLUME (BEAKER) 10.3 fL 9.4-12.3 (test code = 754) NUCLEATED RED BLOOD CELLS 0 /100 WBC 0-0 (BEAKER) (test code = 413) NEUTROPHILS RELATIVE PERCENT 72 % (BEAKER) (test code = 429) LYMPHOCYTES RELATIVE PERCENT 16 % (BEAKER) (test code = 430) MONOCYTES RELATIVE PERCENT 8 % (BEAKER) (test code = 431) EOSINOPHILS RELATIVE PERCENT 3 % (BEAKER) (test code = 432) BASOPHILS RELATIVE PERCENT 1 % (BEAKER) (test code = 437) NEUTROPHILS ABSOLUTE COUNT 9.19 K/ L 1.56-6.13 H (BEAKER) (test code = 670) LYMPHOCYTES ABSOLUTE COUNT 2.05 K/ L 1.18-3.74 (BEAKER) (test code = 414) MONOCYTES ABSOLUTE COUNT (BEAKER) 1.02 K/ L 0.24-0.36 H (test code = 415) EOSINOPHILS ABSOLUTE COUNT 0.34 K/ L 0.04-0.36 (BEAKER) (test code = 416) BASOPHILS ABSOLUTE COUNT (BEAKER) 0.10 K/ L 0.01-0.08 H (test code = 417) IMMATURE GRANULOCYTES-RELATIVE 0 % 0-1 PERCENT (BEAKER) (test code = 2801) POCT-GLUCOSE [id number] 00:01:00 Test Item Value Reference Range Interpretation Comments POC-GLUCOSE METER 92 mg/dL 70-110 : TESTED Terri Plummer [facility] 6720 (BEAKER) (test code = AGUSTIN ESTEVEZ [place], 1538) 720[address]: Certified Home Health Aide/Techni won ID = [id number] for PAVEL SORENSON (Deonna)YANCY POCT-GLUCOSE [id number] 17:48:00 Test Item Value Reference Range Interpretation Comments POC-GLUCOSE METER 81 mg/dL 70-110 : TESTED A T [facility] 6720 (BEAKER) (test code [facility], = 1538) 79503: Certified Home Health Aide/Techni won ID = [id number] for VINCENT ROBLES POCT-GLUCOSE [id number] 12:10:00 Test Item Value Reference Range Interpretation Comments POC-GLUCOSE METER 147 mg/dL 70-110 H : TESTED A T [facility] 6720 (BEAKER) (test code [facility], = 1538) 33137: Certified Home Health Aide/Techni won ID = [id number] for NEGRO ROBLESA POCT-GLUCOSE [id number] 08:45:00 Test Item Value Reference Range Interpretation Comments POC-GLUCOSE METER 82 mg/dL 70-110 : TESTED A T [facility] 6720 (BEAKER) (test code [facility], = 1538) 52733: Certified Home Health Aide/Techni won ID = [id number] for VINCENT ROBLES BASIC METABOLIC [id number] 06:36:00 Test Item Value Reference Range Interpretation Comments SODIUM (BEAKER) 139 meq/L 136-145 (test code = 381) POTASSIUM (BEAKER) 3.5 meq/L 3.5-5.1 (test code = 379) CHLORIDE (BEAKER) 101 meq/L 98-107 (test code = 382) CO2 (BEAKER) (test 28 meq/L 22-29 code = 355) BLOOD UREA NITROGEN 26 mg/dL 7-21 H (BEAKER) (test code = 354) CREATININE (BEAKER) 1.74 mg/dL 0.57-1.25 H (test code = 358) GLUCOSE RANDOM 85 mg/dL 70-105 (BEAKER) (test code = 652) CALCIUM (BEAKER) 9.3 mg/dL 8.4-10.2 (test code = 697) EGFR (BEAKER) (test 28 mL/min/1.73 [place] GFR IS code = 1092) sq m NOT ACCURATE CREATININE CLEARANCE IN PREDICTING GLOMERULAR FILTRATION RATE . ESTIMATED GFR I S NOT APPLICABLE FOR DIALYSIS PATIEN TS. Certified Home Health Aide ID - KASEY MCBC W/PLT COUNT & AUTO [id number] 05:39:00 Test Item Value Reference Range Interpretation Comments WHITE BLOOD CELL COUNT (BEAKER) 13.2 K/ L 3.5-10.5 H (test code = 775) RED BLOOD CELL COUNT (BEAKER) 4.58 M/ L 3.93-5.22 (test code = 761) HEMOGLOBIN (BEAKER) (test code = 13.3 GM/DL 11.2-15.7 410) HEMATOCRIT (BEAKER) (test code = 39.9 % 34.1-44.9 411) MEAN CORPUSCULAR VOLUME (BEAKER) 87.1 fL 79.4-94.8 (test code = 753) MEAN CORPUSCULAR HEMOGLOBIN 29.0 pg 25.6-32.2 (BEAKER) (test code = 751) MEAN CORPUSCULAR HEMOGLOBIN CONC 33.3 GM/DL 32.2-35.5 (BEAKER) (test code = 752) RED CELL DISTRIBUTION WIDTH 13.3 % 11.7-14.4 (BEAKER) (test code = 412) PLATELET COUNT (BEAKER) (test 244 K/CU MM 150-450 code = 756) MEAN PLATELET VOLUME (BEAKER) 10.3 fL 9.4-12.3 (test code = 754) NUCLEATED RED BLOOD CELLS 0 /100 WBC 0-0 (BEAKER) (test code = 413) NEUTROPHILS RELATIVE PERCENT 68 % (BEAKER) (test code = 429) LYMPHOCYTES RELATIVE PERCENT 19 % (BEAKER) (test code = 430) MONOCYTES RELATIVE PERCENT 9 % (BEAKER) (test code = 431) EOSINOPHILS RELATIVE PERCENT 3 % (BEAKER) (test code = 432) BASOPHILS RELATIVE PERCENT 1 % (BEAKER) (test code = 437) NEUTROPHILS ABSOLUTE COUNT 9.02 K/ L 1.56-6.13 H (BEAKER) (test code = 670) LYMPHOCYTES ABSOLUTE COUNT 2.45 K/ L 1.18-3.74 (BEAKER) (test code = 414) MONOCYTES ABSOLUTE COUNT (BEAKER) 1.16 K/ L 0.24-0.36 H (test code = 415) EOSINOPHILS ABSOLUTE COUNT 0.42 K/ L 0.04-0.36 H (BEAKER) (test code = 416) BASOPHILS ABSOLUTE COUNT (BEAKER) 0.08 K/ L 0.01-0.08 (test code = 417) IMMATURE GRANULOCYTES-RELATIVE 0 % 0-1 PERCENT (BEAKER) (test code = 2801) POCT-GLUCOSE [id number] 21:09:00 Test Item Value Reference Range Interpretation Comments POC-GLUCOSE METER 140 mg/dL 70-110 H : TESTED A T [facility] 6720 (BEAKER) (test code = AGUSTIN Flood [facility], 1538) 71324: Certified Home Health Aide/Techni won ID = [id number] for LYNDA THORNE POCT-GLUCOSE [id number] 18:23:00 Test Item Value Reference Range Interpretation Comments POC-GLUCOSE METER 97 mg/dL 70-110 : TESTED A T [facility] 6720 (BEAKER) (test code = [facility], 1538) [address]: Certified Home Health Aide/Techni won ID = [id number] for REN CARROLLKvngLOGAN CHACON CT, BRAIN, WITHOUT [id number] 17:35:00Unlisted Reason for Exam - Click Yes and Enter Reason Below->No [facility] : 1935 Sex: FFINAL REPORT CT, BRAIN, WITHOUT IV CONTRAST INDICATION: Neuro deficit, acute, persistent or progressing TECHNIQUE: Noncontrast axial imaging was obtained from the vertex to the skull base. Axial images were reconstructed using a bone algorithm. DOSE REDUCTION: Dose modulation, iterative reconstruction, and/or weight-based adjustment of the mA/kV was utilized to reduce the radiation dose to as low as reasonably achievable. COMPARISON: MRI and CTA 11/22/2020 FINDINGS: Intracranial: Known evolving infarcts in the left thalamus and left cerebellar hemisphere, better demonstrated by recent MRI. Additional remote infarcts involving the left occipital lobe and right cerebellar hemisphere. No intracranial hemorrhage or abnormal extra-axial collection. No mass effect. No hydrocephalus. Scattered foci of hypoattenuation within the periventricular and subcortical white matter are a nonspecific finding commonly attributed to chronic small vessel ischemic disease. Intracranial vascular calcifications. Osseous structures: No fracture. No suspicious lesion. Paranasal sinuses and mastoid air cells: No evidence of sinusitis. Mastoids are clear. 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 Signed: Luisa Arambula Verified Date/Time: 11/23/2020 17:35:19 CT brain without IV [id number] 17:35:00Interface, External Ris In - 11/23/2020 5:[address], BRAIN, WITHOUT IV CONTRAST INDICATION: Neuro deficit, acute, persistent or progressing TECHNIQUE: Noncontrastaxial imaging was obtained from the vertex to the skull base. Axial images were reconstructed using a bone algorithm. DOSE REDUCTION: Dose modulation, iterative reconstruction, and/or weight-based adjustment of the mA/kV was utilized to reduce the radiation dose to as low as reasonably achievable. COMPARISON: MRI and CTA 11/22/2020 FINDINGS: Intracranial: Known evolving infarcts in the left thalamus and left cerebellar hemisphere, better demonstrated by recent MRI. Additional remote infarcts involving the left occipital lobe and right cerebellar hemisphere. No intracranial hemorrhage or abnormal extra-axial collection. No mass effect. No hydrocephalus. Scattered foci of hypoattenuation within theperiventricular and subcortical white matter are a nonspecific finding commonly attributed to chronic small vessel ischemic disease. Intracranial vascular calcifications. Osseous structures: No fracture. No suspicious lesion. Paranasal sinuses and mastoid air cells: No evidence of sinusitis. Mastoids are clear. Orbital contents: Globes are intact. 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 Signed: Luisa Arambula Verified Date/Time: 11/23/2020 17:35:19 [facility] [place] [id number] 13:15:00 Test Item Value Reference Range Interpretation Comments POC-GLUCOSE METER 126 mg/dL 70-110 H : TESTED A T [facility] 6720 (BEAKER) (test code = AGUSTIN ESTEVEZ [place], 1538) [address]: Certified Home Health Aide/Techni won ID = [id number] for Leidy Allan Urea Nitrogen, random [id number] 13:03:00 Test Item Value Reference Range Interpretation Comments Urea Nitrogen, Ur 236 mg/dL (test code = 3095-7) ALEX (test code = Reference Range: No ALEX) NormalsOperator ID - ADMIN [facility] HospitalCreatinine, random [id number] 13:03:00 Test Item Value Reference Range Interpretation Comments Creatinine, Ur 57.2 mg/dL (test code = 2161-8) ALEX (test code = Reference Range: No ALEX) NormalsOperator ID - ADMIN [facility] HospitalCREBEMIDJI MEDICAL CENTERINE, RANDOM [id number] 13:03:00 Test Item Value Reference Range Interpretation Comments CREATININE URINE (BEAKER) (test 57.2 mg/dL code = 375) Reference Range: No NormalsOperator ID - ADMINUREA NITROGEN, RANDOM URINE 2020-11-23 13:03:00 Test Item Value Reference Range Interpretation Comments UREA NITROGEN URINE (BEAKER) (test 236 mg/dL code = 538) Reference Range: No NormalsOperator ID - ADMINTransthoracic 2D echo w/ doppler (cw/pw/color)2020-11-23 12:13:09Ejection FractionSBOISE [facility] ECHO HEARTLAB MKCKESSON CPACSInterface, External Ris In - 11/23/2020 12:13 PM CSTTransthoracic Echocardiography Report (TTE) Demographics Patient Name STEPHANIE CARREON Date of Study 11/22/2020 Gender Female Visit Number [id number] Race Unknown Room Number 2215 Number Date of 1935 Referring Physician Valarie Chaves MD Age 84year(s) Dot Net Architect LOKESH Wells Interpreting [facility] Needs to be Pre Physician Read Mathew Broussard MD Fellow Javier Baez MD Procedure Type of Study TTE procedure:2DECHO W DOPPLER(CW/PW/COLOR) (Routine) Indications:Stroke work up.Clinical HistoryCA, HLD, HTN, CVAHGB 12.3HCT 37.4 %BUBBLE STUDY.Contrast Medium: Definity. Amount - 2 mlHeight: 60 inches Weight: 62.6 kg (138 lbs) BSA: 1.59 m^2 BMI: 26.95 kg/m^2HR: 80 bpm BP: 185/93 mmHg Summary Very severe mitral annular calcification homogenous well-demarcated up to 2.3 cm diameter parasternal long axis, with extension around the posterior mitral annulus. Mild MV leaflet thickening. Trace mitral regurgitation. Probably qezk-ss-jkdsizzk mitral stenosis due to severe mitral annular [...] . Degree of diastolic dysfunction (LAP assessment) is inconclusive due to mitral annular calcification . Left Atrium LA size is normal (16- 34 ml/m2) . Right Ventricle The right ventricular chamber size and systolic function are within normal limits by S'. Right Atrium RA size is normal. Atrial Septum Normal interatrial septum by available views. IV saline contrast injection was negative for a PFO (patent foramen ovale) at rest and pos t Valsalva . Aortic Valve Mild AoV cusp thickening. Mild AoV cusp calcification. No evidence of aortic regurgitation. There is no aortic stenosis. Mitral Valve Very severe mitral annular calcification homogenous well-demarcated up to 2.3 cm diameter parasternal long axis, with extension around the posterior mitral annulus. Mild MV leaflet thickening. Trace mitral regurgitation. 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 Pericardium No significant pericardial effusion is visualized. IVC/SVC/PA/PV/Pleural The e stimated RA pressure by IVC dynamics 5-10mmHg . [...] 2.33 mmHg Mean Gradient: 5.24 mmHg Area (cont inuity): 1.3 cm^2 MV VTI: 33.64 cm MV [...] Mean Velocity: 0.79 m/s Mean Gradient: 2.82 mmHgLVOT Diameter: 1.77 cm LVOT VTI: 17.74 cm LVOT Area: 2.46 cm^2 LVOT SV:43.63 ml LVOT CO: 3.49 l/min LVOT CI: 2.19 l/min/m^2CPlacentia-[facility] Urinal[facility] Microscopic [id number] 11:30:00 Test Item Value Reference Range Interpretation Comments RBC, UA (test 154 See_Comment [Automated code = 92379-2) message] The system which generated this result transmitted reference range : /HPF. The refer ence range was not u sed to interpret th is result as normal/abnormal . WBC, UA (test 15 See_Comment [Automated code = 5821-4) message] The system which generated this result transmitted reference range : /HPF. The refer ence range was not u sed to interpret th is result as normal/abnormal . Bacteria, UA Occasional (test code = 59557-7) Mucus (test code Occasional = 8247-9) Squam Epithel, <1 See_Comment [Automated UA (test code = message] The system 53268-3) which generated this result transmitted reference range : /HPF. The refer ence range was not u sed to interpret th is result as normal/abnormal . Hyaline Casts, 1 See_Comment [Automated UA (test code = message] The system 53573-3) which generated this result transmitted reference range : /LPF. The refer ence range was not u sed to interpret th is result as normal/abnormal . ALEX (test code = Certified Home Health Aide ID - tech ALEX) [facility] HospitalURINALYSIS [id number] 11:30:00 Test Item Value Reference Range Interpretation Comments RBC UA (BEAKER) (test code = 519) 154 /HPF WBC UA (BEAKER) (test code = 520) 15 /HPF BACTERIA (BEAKER) (test code = Occasional 517) MUCUS (BEAKER) (test code = 1574) Occasional SQUAMOUS EPITHELIAL (BEAKER) (test < /HPF code = 516) HYALINE CASTS (BEAKER) (test code 1 /LPF = 514) Certified Home Health Aide ID - techUrinalysis with Microscopic If [id number] 11:29:00 Test Item Value Reference Range Interpretation Comments Color, UA (test code = Yellow 5778-6) Clarity, UA (test code = Clear 5767-9) Specific [place], UA (test 1.020 1.001-1.035 code = 5811-5) pH, UA (test code = 6.0 5.0-8.0 5803-2) Protein, UA (test code = 30 mg/dL Negative A 06627-7) Glucose, UA (test code = Negative Negative 365) Ketones, UA (test code = Negative Negative 2514-8) Bilirubin, UA (test code = Negative Negative 42285-8) Blood, UA (test code = Large Negative A 84462-6) Nitrite, UA (test code = Negative Negative 5802-4) Leukocytes, UA (test code Large Negative A = 5799-2) Urobilinogen, UA (test 0.2 mg/dL 0.2-1 code = 47814-2) Specimen Source (test code = 2795) ALEX (test code = ALEX) Certified Home Health Aide ID - [auto] Lab Interpretation (test Abnormal code = 73015-4) [facility] HospitalURINALYSIS WITH MICROSCOPIC IF [id number] 11:29:00 Test Item Value Reference Range Interpretation Comments COLOR (BEAKER) (test code = 470) Yellow CLARITY (BEAKER) (test code = 469) Clear SPECIFIC GRAVITY UA (BEAKER) (test 1.020 1.001-1.035 code = 468) PH UA (BEAKER) (test code = 467) 6.0 5.0-8.0 PROTEIN UA (BEAKER) (test code = 30 mg/dL Negative A 464) GLUCOSE UA (BEAKER) (test code = Negative Negative 365) KETONES UA (BEAKER) (test code = Negative Negative 371) BILIRUBIN UA (BEAKER) (test code = Negative Negative 462) BLOOD UA (BEAKER) (test code = 461) Large Negative A NITRITE UA (BEAKER) (test code = Negative Negative 465) LEUKOCYTE ESTERASE UA (BEAKER) Large Negative A (test code = 466) UROBILINOGEN UA (BEAKER) (test code 0.2 mg/dL 0.2-1.0 = 463) SOURCE(BEAKER) (test code = 2795) Certified Home Health Aide ID - [auto]BASIC METABOLIC [id number] 06:21:00 Test Item Value Reference Range Interpretation Comments SODIUM (BEAKER) 139 meq/L 136-145 (test code = 381) POTASSIUM (BEAKER) 3.9 meq/L 3.5-5.1 (test code = 379) CHLORIDE (BEAKER) 101 meq/L 98-107 (test code = 382) CO2 (BEAKER) (test 28 meq/L 22-29 code = 355) BLOOD UREA NITROGEN 23 mg/dL 7-21 H (BEAKER) (test code = 354) CREATININE (BEAKER) 1.75 mg/dL 0.57-1.25 H (test code = 358) GLUCOSE RANDOM 92 mg/dL 70-105 (BEAKER) (test code = 652) CALCIUM (BEAKER) 9.5 mg/dL 8.4-10.2 (test code = 697) EGFR (BEAKER) (test 28 mL/min/1.73 ESTIMA [place] GFR IS code = 1092) sq m NOT ACCURATE CREATININE CLEARANCE IN PREDICTING GLOMERULAR FILTRATION RATE . ESTIMATED GFR I S NOT APPLICABLE FOR DIALYSIS PATIEN TS. Certified Home Health Aide ID - KASEY [id number]-P2Y12 PLATELET [id number] 04:37:00 Test Item Value Reference Range Interpretation Comments POC-P2Y12 Plt Agg 102 PRU (test code = 2303) ALEX (test code = RANGE INFORMATION: PRU ALEX) reference range is 194-418. Post Drug Results: Lower PRU levels are associated with expected antiplatelet effect. Values may be below the stated reference range above. The post-drug PRU values reported in the VerifyNow P2Y12 package insert are 18-435. [facility] PL[facility]LET [id number] 04:37:00 Test Item Value Reference Range Interpretation Comments POC-P2Y12 PLATELET AGG (BEAKER) (test 102 PRU code = 2303) RANGE INFORMATION: PRU reference range is 194-418. Post Drug Results: Lower PRU levels are associated with expected antiplatelet effect. Values may be below the stated reference range above. The post-drug PRU values reported in the VerifyNow P2Y12 package insert are 18-435.CBC W/PLT COUNT & AUTO [id number] 04:21:00 Test Item Value Reference Range Interpretation Comments WHITE BLOOD CELL COUNT (BEAKER) 11.9 K/ L 3.5-10.5 H (test code = 775) RED BLOOD CELL COUNT (BEAKER) 4.56 M/ L 3.93-5.22 (test code = 761) HEMOGLOBIN (BEAKER) (test code = 13.3 GM/DL 11.2-15.7 410) HEMATOCRIT (BEAKER) (test code = 40.1 % 34.1-44.9 411) MEAN CORPUSCULAR VOLUME (BEAKER) 87.9 fL 79.4-94.8 (test code = 753) MEAN CORPUSCULAR HEMOGLOBIN 29.2 pg 25.6-32.2 (BEAKER) (test code = 751) MEAN CORPUSCULAR HEMOGLOBIN CONC 33.2 GM/DL 32.2-35.5 (BEAKER) (test code = 752) RED CELL DISTRIBUTION WIDTH 13.2 % 11.7-14.4 (BEAKER) (test code = 412) PLATELET COUNT (BEAKER) (test 225 K/CU MM 150-450 code = 756) MEAN PLATELET VOLUME (BEAKER) 10.0 fL 9.4-12.3 (test code = 754) NUCLEATED RED BLOOD CELLS 0 /100 WBC 0-0 (BEAKER) (test code = 413) NEUTROPHILS RELATIVE PERCENT 67 % (BEAKER) (test code = 429) LYMPHOCYTES RELATIVE PERCENT 21 % (BEAKER) (test code = 430) MONOCYTES RELATIVE PERCENT 8 % (BEAKER) (test code = 431) EOSINOPHILS RELATIVE PERCENT 3 % (BEAKER) (test code = 432) BASOPHILS RELATIVE PERCENT 1 % (BEAKER) (test code = 437) NEUTROPHILS ABSOLUTE COUNT 7.90 K/ L 1.56-6.13 H (BEAKER) (test code = 670) LYMPHOCYTES ABSOLUTE COUNT 2.51 K/ L 1.18-3.74 (BEAKER) (test code = 414) MONOCYTES ABSOLUTE COUNT (BEAKER) 0.97 K/ L 0.24-0.36 H (test code = 415) EOSINOPHILS ABSOLUTE COUNT 0.35 K/ L 0.04-0.36 (BEAKER) (test code = 416) BASOPHILS ABSOLUTE COUNT (BEAKER) 0.09 K/ L 0.01-0.08 H (test code = 417) IMMATURE GRANULOCYTES-RELATIVE 0 % 0-1 PERCENT (BEAKER) (test code = 2801) POCT-GLUCOSE [id number] 21:05:00 Test Item Value Reference Range Interpretation Comments POC-GLUCOSE METER 124 mg/dL 70-110 H : TESTED A T [facility] 6720 (BEAKER) (test code = [facility], 1538) [address]: Certified Home Health Aide/Techni won ID = [id number] for DE NNIS, PASQUALE ECG 12 [id number] 16:53:55Interface, External Ris In - 11/22/2020 4:54 PM CSTVentricular Rate 63 BPMAtrial Rate 63 BPMP-R Interval 172 msQRS Duration 80 msQ-T Interval 454 msQTC Calculation(Bazett) 464 msP [place] 6 degreesR Axis44 degreesT [place] 26 degreesPoor data quality Normal sinus rhythmLow voltage QRSNonspecific ST abnormalityProlonged QTAbnormal ECGNo previous ECGs availableConfirmed by MD ANDRES, ARMANDO ([id number]) on 11/22/2020 4:53:51 [facility] [place] [id number] 16:36:00 Test Item Value Reference Range Interpretation Comments POC-GLUCOSE METER 158 mg/dL 70-110 H : TESTED A T [facility] 6720 (BEAKER) (test code = [facility], 1538) 745[address]: Certified Home Health Aide/Techni won ID = [id number] for An derson, Tess POCT-GLUCOSE [id number] 15:07:00 Test Item Value Reference Range Interpretation Comments POC-GLUCOSE METER 88 mg/dL 70-110 : TESTED A T [facility] 6720 (BEAKER) (test code = [facility], 1538) 28290: Certified Home Health Aide/Techni won ID = [id number] for Arnel rscolette, Tess T4, [id number] 13:37:00 Test Item Value Reference Range Interpretation Comments Free T4 (test code = 0.68 ng/dL 0.7-1.48 L 3024-7) ALEX (test code = ALEX) Certified Home Health Aide ID - HEATHER Huizar Lab Interpretation (test Abnormal code = 84661-6) [facility] HospitalT4, [id number] 13:37:00 Test Item Value Reference Range Interpretation Comments FREE T4 (BEAKER) (test code = 655) 0.68 ng/dL 0.70-1.48 L Certified Home Health Aide ID - HEATHER MCT, CTANGIO [id number] 12:57:00Unlisted Reason for Exam - Click Yes and Enter Reason Below->No [facility] : 1935 Sex: FFINAL REPORT CT, CTANGIO BRAINBRAIN CT WITHOUT CONTRAST INDICATION: Stroke, follow up COMPARISON: Correlation to noncontrast brain MRI obtained approximately one hour priorTECHNIQUE:Rapid acquisition spiral images were obtained between the skull base and the cranial vertex during intravenous contrast infusion to reconstruct axial images and angiographic 3D maximum intensity projections (MIP). 3-D volumetric reformatted images were created at a dedicated workstation. Precontrast images of the brain were also obtained. DOSE REDUCTION: Dose modulation, iterative reconstruction, and/or weight-based adjustment of the mA/kV was utilized to reduce the radiation dose to as low as reasonably achievable. FINDINGS:CT BRAIN:No ischemic changes in the left thalamus and left cerebellar hemisphere are not well characterized in the current examination. 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 There is no midline shift or hydrocephalus. Osseous structures are intact. No abnormal extra-axial fluid is identified. CTA BRAIN:Circumferential calcific atherosclerosis is present in the internal carotid arteries but without flow limitation. Middle cerebral arteriesand distal branches are well- opacified. Anterior cerebral arteries and anterior to indicating arteryare intact. There is atretic flow through the intracranial vertebral arteries. Circumferential calcification is present bilaterally in the vertebral arteries at the dural breech. There is atretic flow in the basilar artery. And intermittent opacification of the posterior cerebral arteries bilaterally,worse on the left. IMPRESSION: No hemorrhagic conversion is identified in the none ischemic regions. No large vessel occlusion. Atretic flow through the posterior circulation with intermittent opacification of the basilar artery and decreased opacification of the posterior cerebral arteries, worse onthe left. Signed: JR Stringer Robert MDRepjoesph Verified Date/Time: 11/22/2020 12:57:12 ReadingLocation: [facility] B1 C013V Neuro Reading Room CTA [id number] 12:57:00 Interface, External Ris In - 11/22/2020 12:[address], CTANGIOBRA[address]IN CT WITHOUT CONTRAST INDICATION: Stroke, follow up COMPARISON: Correlation to noncontrast brain MRI obtained approximately one hour prior TECHNIQUE:Rapid acquisition spiral images were obtained between the skull base and the cranial vertex during intravenous contrast infusion to reconstruct axial images and angiographic 3D maximum intensity projections (MIP). 3-D volumetric reformatted images were created at a dedicated workstation. Precontrast images of the brain were also obtained. DOSEREDUCTION: Dose modulation, iterative reconstruction, and/or weight-based adjustment of the mA/kV was utilized to reduce the radiation dose to as low as reasonably achievable. FINDINGS:CT BRAIN:No ischemic changes in the left thalamus and left cerebellar hemisphere are not well characterized in the current examination. Remote left mesial occipital lobe infarct is again identified. There is no midlineshift or hydrocephalus. Osseous structures are intact. No abnormal extra- axial fluid is identified. CTA BRAIN:Circumferential calcific atherosclerosis is present in the internal carotid arteries but without flow limitation. Middle cerebral arteries and distal branches are well-opacified. Anterior cerebral arteries and anterior to indicating artery are intact. There is atretic flow through the intracranial vertebral arteries. Circumferential calcification is present bilaterally in the vertebral arteries at the dural breech. There is atretic flow in the basilar artery. And intermittent opacification of the posterior cerebral arteries bilaterally, worse on the left. IMPRESSION: No hemorrhagic conversion is identified in the none ischemic regions. No large vessel occlusion. Atretic flow through the posterior circulation with intermittent opacification of the basilar artery and decreased opacification of the posterior cerebral arteries, worse on the left. Signed: JR Stringer Robert MDReport Verified Date/Time: 11/22/2020 12:57:12 Reading Location: [facility] C013V Neuro Reading Room [facility] [place]PR[place] 12:03:00 Test Item Value Reference Range Interpretation Comments RPR (test code = 41636-3) Nonreactive Nonreactive Lab Interpretation (test code = Normal 25664-7) [facility] 12:03:00 Test Item Value Reference Range Interpretation Comments RPR SCREEN (BEAKER) (test code = Nonreactive Nonreactive 420) SARS-CoV2/RT-PCR (Asymptomatic ONLY)2020-11-22 11:41:00 Test Item Value Reference Range Interpretation Comments SARS-COV2/RT-PCR Negative Not Detected, (test code = Negative, See 75284-9) external report for linked test SARS-COV-2 [facility] PERFORMING LAB (test code = 74693-4) ALEX (test code = Negative result for this ALEX) test determines that SARS-CoV-2 RNA was not present in the [...] of the Act. Fact Sheet for Healthcare Providers:https://www.Breadcrumbtracking/sites/default/f albina/product/documents/F act_Sheet_HC_Providers_L res_LDTN-XhL-6.pdf Fact Sheet for Healthcare Patients:https://www.kabuku/sites/default/fi les/product/documents/Fa ct_Sheet_Patients_Lyra_S ARS-CoV-2.pdf Performing Laboratory:[facility] [facility] [place] [address] [facility] ([facility])2020-11-22 11:41:00 Test Item Value Reference Range Interpretation Comments SARS-COV2/RT-PCR (test Negative Not Detected, Negative, code = 1825966) See external report for linked test SARS-COV-2 PERFORMING LAB [facility] (test code = 3299207) Negative result for this test determines that SARS-CoV-2 RNA was not present in the specimen above the Limit of Detection (LOD). However, Negative results do not preclude SARS-CoV-2 infection and should not be used as the sole basis for treatment or patient management decisions. Negative results mustbe combined with clinical observations, patient history, and epidemiological information. A false negative result may occur if a specimen is improperly collected, transported or handled. A false negative result should be considered if patient's recent exposures or clinical presentation indicate that COVID-19 (SARS-CoV-2) is likely and diagnostic tests for other causes of illness are negative. Re-testing should be considered in cases of suspected false negatives.The limit of detection for this assay is 800 copies/mL.This SARS CoV-2 test is a real-time RT-PCR test intended for the qualitative detection of nucleic acid from SARS-CoV-2 in a nasopharyngeal swab specimen collected from individuals suspected of COVID-19 by their healthcare provider.This test has not been Food and Drug [...] is revoked under Section 564(g) of the Act.Fact Sheet for Healthcare Providers:https://www.Lamoda/sites/default/files/product/documents/Fact_Shee e_LS_Ybmdatbaq_Uobu_KDWT-YyC-4.pdfFact Sheet for Healthcare Patients:https://www.Lamoda/sites/default/files/product/ documents/Sgge_Thrnt_Mwobgidx_Vtpp_ZNON-DtZ-7.pdfPerforming Laboratory:[facility], [place] [address]UO, BRAIN, WITHOUT [id number] 11:38:00Unlisted Reason for Exam - Click Yes and Enter Reason Below->No[facility] : 1935 Sex: FFINAL REPORT MR, BRAIN, WITHOUT CONTRAST INDICATION: Neuro deficit, acute, stroke suspected TECHNIQUE: Multiplanar, multisequence MR imaging of the brain without intravenouscontrast. COMPARISON: None FINDINGS: Diffusion restriction is evident in the left thalamus and paramedian left cerebellar hemisphere. Is no evidence of hemorrhagic conversion. Supratentorial brain demon strates mild volume loss with confluent periventricular white matter disease. Sequela of prior infarct noted in the mesial left occipital lobe. The ventricles are normal in size and configuration. The larger intracranial vascular flow- voids are preserved. Paranasal sinuses and mastoid air cells are clear. There is normal bone marrow signal intensity within the calvarium and skull base. IMPRESSION: Nonhemorrhagic ischemic changes are present in the left thalamus and paramedian left cerebellar hemisphere. Signed: JR Stringer Robert MDReport Verified Date/Time: 11/22/2020 11:38:52 Reading Location: [address] Neuro Reading Room MR brain without IV [id number] 11:38:00Interface, External Ris In - 11/22/2020 11:41 AM CSTFINAL REPORT MR, BRAIN, WITHOUT CONTRAST INDICATION: Neuro deficit, acute, stroke suspected TECHNIQUE: Multiplanar, multisequence MR imaging of the brain without intravenous contrast. COMPARISON: None FINDINGS: Diffusion restriction is evident in the left thalamus and paramedian left cerebellar hemisphere. Is no evidence of hemorrhagic conversion. Supratentorial brain demonstrates mild volume loss with confluent periventricular white matter disease. Sequela of prior infarct noted in the mesial left occipital lobe. The ventricles are normal in size and configuration. The larger intracranial vascular flow-voids are preserved.Paranasal sinuses and mastoid air cells are clear. There is normal bone marrow signal intensity within the calvarium and skull base. IMPRESSION: Nonhemorrhagic ischemic changes are present in the leftthalamus and paramedian left cerebellar hemisphere. Signed: JR Stringer Robert MDReport Verified Date/Time: 11/22/2020 11:38:52 Reading Location: [address] Neuro Reading Room [facility]TS/Free T4 If [id number] 09:10:00 Test Item Value Reference Range Interpretation Comments TSH (test code = 75.776 See_Comment H [Automated 04203-9) message] The system which generated this result transmit alex[place] reference range : 0.350 - 4.940 uIU/mL. The reference range was not used to interpret this result as normal/abnormal . ALEX (test code = ALEX) Certified Home Health Aide ID - JONA Harley Lab Interpretation Abnormal (test code = 79814-3) [facility]TS/FREE T4 IF [id number] 09:10:00 Test Item Value Reference Range Interpretation Comments THYROID STIMULATING HORMONE 75.776 uIU/mL 0.350-4.940 H (BEAKER) (test code = 772) Certified Home Health Aide ID - JONA LVitamin B12 and [id number] 09:06:00 Test Item Value Reference Range Interpretation Comments Vitamin B12 (test 267 pg/mL 213-816 code = 2132-9) Folate (test code = 14.50 ng/mL See_Comment [Automa alexandria 2284-8) message] The system which generated this result transmit alexandria reference range : >=7.00. The reference range was not used to interpret this result as normal/abnormal . ALEX (test code = ALEX) Certified Home Health Aide ID - YANELYLIANA Harley Lab Interpretation Normal (test code = 81255-6) [facility] HospitalVITAMIN B12 AND [id number] 09:06:00 Test Item Value Reference Range Interpretation Comments VITAMIN B12 (BEAKER) (test code = 267 pg/mL 213-816 774) FOLATE (BEAKER) (test code = 362) 14.50 ng/mL >=7.00 Certified Home Health Aide ID - JONA LHemoglobin [id number] 08:57:00 Test Item Value Reference Range Interpretation Comments Hemoglobin A1C (test code = 4548-4) 5.4 % 4.3-6.1 Lab Interpretation (test code = Normal 57630-1) [facility] HospitalHEMOGLOBIN [id number] 08:57:00 Test Item Value Reference Range Interpretation Comments HEMOGLOBIN A1C (BEAKER) (test code = 5.4 % 4.3-6.1 368) POCT-GLUCOSE [id number] 07:51:00 Test Item Value Reference Range Interpretation Comments POC-GLUCOSE METER 79 mg/dL 70-110 : TESTED A T [facility] 6720 (BEAKER) (test code = AGUSTIN Flood [place], 1538) [address]: Certified Home Health Aide/Techni won ID = [id number] for Tess Jaramillo Troponin [id number] 07:06:00 Test Item Value Reference Range Interpretation Comments Troponin I (test code = 0.01 ng/mL 0-0.03 79780-4) ALEX (test code = ALEX) Troponin I (TnI) levels must be interpreted in the context of the presenting symptoms and the clinical findings. Elevated TnI levels indicate myocardial damage, but are not specific for ischemic heart disease. Elevated TnI levels are seen in patients with other cardiac conditions (including myocarditis and congestive heart failure), and slight TnI elevations occur in patients with other conditions, including sepsis, renal failure, acidosis, acute neurological disease, and persistent tachyarrhythmia.Opera tor ID - PIAYA L Lab Interpretation (test Normal code = 64752-7) [id number] 07:[facility]:00 Test Item Value Reference Range Interpretation Comments TROPONIN I (BEAKER) (test code = 0.01 ng/mL 0.00-0.03 397) Troponin I (TnI) levels must be interpreted in the context of the presenting symptoms and the clinical findings. Elevated TnI levels indicate myocardial damage, but are not specific for ischemic heart disease. Elevated TnI levels are seen in patients with other cardiac conditions (including myocarditis and congestive heart failure), and slight TnI elevations occur in patients with other conditions, including sepsis, renal failure, acidosis, acute neurological disease, and persistent tachyarrhythmia.Certified Home Health Aide ID - PIAYA LFasting lipid panel 2020-11-22 07:00:00 Test Item Value Reference Range Interpretation Comments Triglycerides (test 150 mg/dL code = 2571-8) Cholesterol (test code 208 mg/dL = 2093-3) HDL (test code = 43 mg/dL 5-9) LDL Calculated (test 135 mg/dL code = 58155-6) ALEX (test code = ALEX) Triglyceride Reference Range: Low Risk <150 Borderline 150-199 High Risk 200-499 Very High Risk >=500 Cholesterol Reference Range: Low Risk <200 Borderline 200-239 High Risk >240 HDL Cholesterol Reference Range: Low Risk >=60 High Risk <40 LDL Cholesterol Reference Range: Optimal <100 Near Optimal 100-129 Borderline 130-159 High 160-189 Very High >=190 Certified Home Health Aide ID - PIAYA L [facility] [id number] 07:00:00 Test Item Value Reference Range Interpretation Comments Protein, Total (test 6.3 See_Comment [Autom ated code = 2885-2) message] The system which generated this result transmit [place] reference range : 6.0 - 8.3 gm/dL . The reference range was not u sed to interpret th is result as normal/abnormal . Albumin (test code = 3.3 g/dL 3.5-5 L 06586-3) Total Bilirubin (test 0.5 mg/dL 0.2-1.2 code = 1975-2) Bilirubin, Direct 0.2 mg/dL 0.1-0.5 (test code = 1968-7) Alkaline Phosphatase 104 U/L 40-150 (test code = 6768-6) AST (test code = 15 U/L 5-34 1920-8) ALT (test code = 8 U/L 6-55 1742-6) ALEX (test code = ALEX) Certified Home Health Aide ID - JONA L Lab Interpretation Abnormal (test code = 27736-7) [id number] 07:00:00 Test Item Value Reference Range Interpretation Comments Magnesium (test code = 1.7 mg/dL 1.6-2.6 64458-5) ALEX (test code = ALEX) Certified Home Health Aide ID - PIAYA L Lab Interpretation (test Normal code = 28917-8) [facility]OLIC [id number] 07:00:00 Test Item Value Reference Range Interpretation Comments SODIUM (BEAKER) 137 meq/L 136-145 (test code = 381) POTASSIUM (BEAKER) 3.8 meq/L 3.5-5.1 (test code = 379) CHLORIDE (BEAKER) 105 meq/L 98-107 (test code = 382) CO2 (BEAKER) (test 25 meq/L 22-29 code = 355) BLOOD UREA NITROGEN 16 mg/dL 7-21 (BEAKER) (test code = 354) CREATININE (BEAKER) 1.13 mg/dL 0.57-1.25 (test code = 358) GLUCOSE RANDOM 76 mg/dL 70-105 (BEAKER) (test code = 652) CALCIUM (BEAKER) 8.9 mg/dL 8.4-10.2 (test code = 697) EGFR (BEAKER) (test 46 mL/min/1.73 [place] GFR IS code = 1092) sq m NOT ACCURATE CREATININE CLEARANCE IN PREDICTING GLOMERULAR FILTRATION RATE . ESTIMATED GFR I S NOT APPLICABLE FOR DIALYSIS PATIEN TS. Certified Home Health Aide ID - JONA [id number] 07:00:00 Test Item Value Reference Range Interpretation Comments MAGNESIUM (BEAKER) (test code = 1.7 mg/dL 1.6-2.6 627) Certified Home Health Aide ID - YANELYLIANA LLIPID [id number] 07:00:00 Test Item Value Reference Range Interpretation Comments TRIGLYCERIDES (BEAKER) (test code = 150 mg/dL 540) CHOLESTEROL (BEAKER) (test code = 208 mg/dL 631) HDL CHOLESTEROL (BEAKER) (test code 43 mg/dL = 976) LDL CHOLESTEROL CALCULATED (BEAKER) 135 mg/dL (test code = 633) Triglyceride Reference Range: Low Risk <150 Borderline 150-199 High Risk 200-499 Very High Risk >=500Cholesterol Reference Range: Low Risk <200 Borderline 200-239 High Risk >240HDL Cholesterol Reference Range: Low Risk >=60 High Risk <40LDL Cholesterol Reference Range: Optimal <100 Near Optimal 100-129 Borderline 130-159 High 160-189 Very High >=190 Certified Home Health Aide ID - PIETROHEPATIC FUNCTION [id number] 07:00:00 Test Item Value Reference Range Interpretation Comments TOTAL PROTEIN (BEAKER) (test code = 6.3 gm/dL 6.0-8.3 770) ALBUMIN (BEAKER) (test code = 1145) 3.3 g/dL 3.5-5.0 L BILIRUBIN TOTAL (BEAKER) (test code 0.5 mg/dL 0.2-1.2 = 377) BILIRUBIN DIRECT (BEAKER) (test 0.2 mg/dL 0.1-0.5 code = 706) ALKALINE PHOSPHATASE (BEAKER) (test 104 U/L 40-150 code = 346) AST (SGOT) (BEAKER) (test code = 15 U/L 5-34 353) ALT (SGPT) (BEAKER) (test code = 8 U/L 6-55 347) Certified Home Health Aide ID - JONA LProthrombin [id number] 06:20:00 Test Item Value Reference Interpretation Comments Range Protime (test code = 14.6 See_Comment H [Autom ated 5902-2) message] The system which generated this result transmitted reference range : 11.9 - 14.2 seconds. The reference range was not used to interpret this result as normal/abnormal . INR (test code = 1.18 See_Comment [Automated 6301-6) message] The system which generated this result transmitted reference range : <=5.90. The reference range was not used to interpret this result as normal/abnormal . ALEX (test code = Effective 04/02/2019: ALEX) PT Reference Range ChangeNew: 11.9-14.2 Previous: 11.7-14.7 RECOMMENDED COUMADIN/WARFARIN INR THERAPY RANGESSTANDARD DOSE: 2.0-3.0 Includes: PROPHYLAXIS for venous thrombosis, systemic embolization; TREATMENT for venous thrombosis and/or pulmonary embolus.HIGH RISK: Target INR is 2.5-3.5 for patients wiht mechanical heart valves. Lab Interpretation Abnormal (test code = 46379-7) [facility]PROTHROMBIN [facility]/[id number] 06:20:00 Test Item Value Reference Range Interpretation Comments PROTIME (BEAKER) (test code = 14.6 seconds 11.9-14.2 H 759) INR (BEAKER) (test code = 370) 1.18 <=5.90 Effective 04/02/2019: PT Reference Range ChangeNew: 11.9-14.2 Previous: 11.7- 14.7RECOMMENDED COUMADIN/WARFARIN INR THERAPY RANGESSTANDARD DOSE: 2.0-3.0 Includes: PROPHYLAXIS for venous thrombosis, systemic embolization; TREATMENT for venous thrombosis and/or pulmonary embolus.HIGH RISK: Target INR is2.5-3.5 for patients wiht mechanical heart valves.POCT-P2Y12 PLATELET AGGREGATION 2020-11-22 05:59:00 Test Item Value Reference Range Interpretation Comments POC-P2Y12 PLATELET AGG (BEAKER) (test 300 PRU code = 2303) RANGE INFORMATION: PRU reference range is 194-418. Post Drug Results: Lower PRU levels are associated with expected antiplatelet effect. Values may be below the stated reference range above. The post-drug PRU values reported in the [employer] P2Y12 package insert are [id number].CBC W/PLT COUNT & AUTO DIFFERENTIAL 2020-11-22 05:59:00 Test Item Value Reference Range Interpretation Comments WHITE BLOOD CELL COUNT (BEAKER) 10.5 K/ L 3.5-10.5 (test code = 775) RED BLOOD CELL COUNT (BEAKER) 4.23 M/ L 3.93-5.22 (test code = 761) HEMOGLOBIN (BEAKER) (test code = 12.3 GM/DL 11.2-15.7 410) HEMATOCRIT (BEAKER) (test code = 37.4 % 34.1-44.9 411) MEAN CORPUSCULAR VOLUME (BEAKER) 88.4 fL 79.4-94.8 (test code = 753) MEAN CORPUSCULAR HEMOGLOBIN 29.1 pg 25.6-32.2 (BEAKER) (test code = 751) MEAN CORPUSCULAR HEMOGLOBIN CONC 32.9 GM/DL 32.2-35.5 (BEAKER) (test code = 752) RED CELL DISTRIBUTION WIDTH 13.2 % 11.7-14.4 (BEAKER) (test code = 412) PLATELET COUNT (BEAKER) (test 190 K/CU MM 150-450 code = 756) MEAN PLATELET VOLUME (BEAKER) 10.0 fL 9.4-12.3 (test code = 754) NUCLEATED RED BLOOD CELLS 0 /100 WBC 0-0 (BEAKER) (test code = 413) NEUTROPHILS RELATIVE PERCENT 63 % (BEAKER) (test code = 429) LYMPHOCYTES RELATIVE PERCENT 25 % (BEAKER) (test code = 430) MONOCYTES RELATIVE PERCENT 7 % (BEAKER) (test code = 431) EOSINOPHILS RELATIVE PERCENT 4 % (BEAKER) (test code = 432) BASOPHILS RELATIVE PERCENT 1 % (BEAKER) (test code = 437) NEUTROPHILS ABSOLUTE COUNT 6.58 K/ L 1.56-6.13 H (BEAKER) (test code = 670) LYMPHOCYTES ABSOLUTE COUNT 2.63 K/ L 1.18-3.74 (BEAKER) (test code = 414) MONOCYTES ABSOLUTE COUNT (BEAKER) 0.77 K/ L 0.24-0.36 H (test code = 415) EOSINOPHILS ABSOLUTE COUNT 0.41 K/ L 0.04-0.36 H (BEAKER) (test code = 416) BASOPHILS ABSOLUTE COUNT (BEAKER) 0.10 K/ L 0.01-0.08 H (test code = 417) IMMATURE GRANULOCYTES-RELATIVE 0 % 0-1 PERCENT (BEAKER) (test code = 2801) [id number] 00:00:00Ordered by an unspecified provider.[facility]
[2020-12-26 20:49] LABS: Basophils % 0.7 % (0-1.3); Hematocrit 34.9 % (36.0-45.0); Lymphocytes % 12.5 % (15.3-44.8); MPV 7.7 fL (7.6-11.3); RBC Red Blood Cell Count 3.95 M/uL (3.86-4.86)
--- NOTE | 2020-12-26 21:12 | RAD REPORT ---
EXAM DESCRIPTION: CT - Facial Bones W/ Mpr - 12/26/2020 8:59 pm CLINICAL HISTORY: Fall, head injury, headache, right-sided facial injury COMPARISON: No remote imaging TECHNIQUE: Axial 2 millimeter thick images of the facial bones were obtained with sagittal and coron al reconstruction imaging. All CT scans are performed using dose optimization technique as appropriate and may include automated exposure control or mA/KV adjustment according to patient size. FINDINGS: No mandible fracture. Condyles are normally positioned. No skullbase fractures seen. Masto id air cells are clear. No air-fluid level in the paranasal sinuses. No globe or orbital content abno rmality seen. Mild contusion changes are seen in the right periorbital region. No foreign body. No facial bone fracture identified. Nasal septum is midline. IMPRESSION: No facial bone fracture. No sinus abnormality seen. Mild right periorbital contusion changes with no globe or orbital content injury.
[2020-12-26 21:14] LABS: Albumin 3.1 g/dL (3.4-5.0); Bilirubin Direct 0.2 mg/dL (0-0.2); Bilirubin Total 0.5 mg/dL (0.2-1.0); Potassium 3.5 mmol/L (3.5-5.1); Protein, Total 7.5 g/dL (6.4-8.2)
--- NOTE | 2020-12-26 21:14 | RAD REPORT ---
EXAM DESCRIPTION: CT - Head Brain Wo Cont - 12/26/2020 8:59 pm CLINICAL HISTORY: TRAUMA, fall with right-sided face and head injury COMPARISON: Facial Bones W/ Mpr dated 12/26/2020 TECHNIQUE: Axial 5 mm thick images of the head were obtained without IV contrast. All CT scans are performed using dose optimization technique as appropriate and may include automated exposure control or mA/KV adjustment according to patient size. FINDINGS: No intracranial hemorrhage, mass, edema or shift of mid-line structures. No acute cortical based infarction. No cortical edema or sulcal effacement. Old infarction changes are present in the posteromedial left occipital lobe. Atrophy changes are mild for age. Mild to moderate chronic ischemi c changes are present in the cerebral white matter the left basal ganglia. Left thalamus old lacune o r type infarctions seen. No abnormal extra-axial fluid collections. Ventricles are in proportion to v olume loss. Dense arterial tree calcifications are present. Mastoid air cells and visualized portions of the paranasal sinuses are clear. No acute bony findings. IMPRESSION: No hemorrhage, acute cortical infarction or acute intracranial finding seen. Atrophy and chronic ischemic changes are present as detailed.
--- NOTE | 2020-12-26 21:23 | RAD REPORT ---
EXAM DESCRIPTION: CT - Abdomen Pelvis Wo Contrast - 12/26/2020 9:07 pm CLINICAL HISTORY: CONSTIPATION COMPARISON: Abdomen Pelvis Wo Contrast dated 08/05/2020 TECHNIQUE: Axial [address] imaging of the abdomen and pelvis was performed without IV contrast. No IV contrast was given because of allergy, abnormal renal function, patient refusal or physician re quest. No oral contrast administered. All CT scans are performed using dose optimization technique as appropriate and may include automated exposure control or mA/KV adjustment according to patient size. FINDINGS: No suspicious findings in the lung bases. No cardiomegaly. Trace pericardial effusion seen new from the comparison. The liver, spleen and pancreas show no suspicious findings on non-contrast imaging. Gallbladder and b iliary tree are also without suspicious finding. Severe right-sided hydronephrosis is present with moderately severe hydroureter down to the pelvic fl oor. Distal most ureter is difficult to visualize. Hydronephrosis is more severe than seen August 24. Patient has severe left-sided hydronephrosis and hydroureter with a ureteral stent in place. Sign ificant left renal cortical thinning present. Severity matches the prior study. No significant adren al finding. Isodense renal masses and pyelonephritis cannot be excluded in the absence of IV contrast . Urinary bladder is fully contracted around a Hernandes catheter. Patient has a 16 centimeter predominantly cystic mass filling the pelvis. There are solid mural nodul e components along the munoz of the cystic mass. This is not substantially different from August. 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 This needs correlation with history. No gastric dilatation. Small hiatal hernia is present. Gastric munoz are accentuated by the absence o f content. Food content is present distending the antrum and duodenal bulb region. Distal duodenum is not dilated. Small bowel loops overall are not dilated. There is moderately large stool volume filli ng but not dilating the colon from cecum through splenic flexure. Stool volume is less pronounced in the descending colon and sigmoid colon. The tortuous and redundant sigmoid colon is seen draping tapan g the margins of the large pelvic mass. Large stool volume is present dilating the rectum to 7 cm. An obstructing mass is not identified. No free air, free fluid or inflammatory stranding. No bulky lymphadenopathy. Pelvic floor laxity is present. No suspicious bony findings. IMPRESSION: Rectum is dilated to 7 cm by retained stool. No obstructing mass identified. Patient has a moderately large stool volume filling but not dilating the remainder of the colon. The patient has very large, known 16 centimeter cystic mass, presumably an ovarian malignancy, that h as not changed since August 2020. Severe bilateral hydronephrosis and hydroureter present with a ureteral stent present on the left. Ur inary bladder is contracted around Hernandes catheter. The left-sided hydronephrosis and left renal cortical thinning are stable. Right-sided hydronephrosis has progressed since August 2020. Full assessment is limited is the absence of IV contrast.
[2020-12-26] MEDS ORDERED: NA CHLORIDE 0.9% 500 ML ONE (22:03)
[2020-12-26 23:15] LABS: Urine Blood 2+ (NEG); Urine Glucose NEGATIVE (NEG); Urine Protein 2+ (NEG); Urine pH 5.5 (5.0-7.0)
[2020-12-26] MEDS ORDERED: FLEET ENEMA ADULT PR ONE (23:37)
[2020-12-26] MEDS ORDERED: CEFTRIAXONE/SWI 1gm 1 GM/10 ML SYR ONE (23:38)
[2020-12-26] MEDS ORDERED: MAGNESIUM CITRATE 300 ML BOT ONE (23:38)
[2020-12-27 01:10] LABS: Absolute Lymphocytes (CBC) 2.2 K/uL (0.7-4.9); Basophils % 0.6 % (0-1.3); Hematocrit 33.3 % (36.0-45.0); Lymphocytes % 14.1 % (15.3-44.8); MPV 8.1 fL (7.6-11.3); RBC Red Blood Cell Count 3.75 M/uL (3.86-4.86)
[2020-12-27 01:15] LABS: Amylase 76 U/L (25-115); Lipase 556 U/L (73-393)
--- NOTE | 2020-12-27 01:44 | EDPHYS ---
Physician Documentation [facility] Name: Pam Llamas Age: 85 yrs Sex: Female : 1935 Arrival Date: 12/26/2020 Time: 17:05 Bed 25 Private MD: ED Physician Rishi Mckoy HPI: 12/26 20:28 This 85 yrs old Female presents to ER via Ambulatory with complaints of mh7 Abdominal Pain. 20:28 The patient presents with Constipation. Onset: The symptoms/episode began/occurred 3 mh7 day(s) ago. The symptoms do not radiate. 20:30 Associated signs and symptoms: Pertinent positives: constipation, Rectal pain, mh7 Pertinent negatives: nausea, vomiting, and diarrhea, nausea and vomiting, anorexia, blood in stools, chest pain, diarrhea, dysuria, fever, headache, hematuria, nausea, palpitations, shortness of breath, vaginal discharge, vomiting, vomiting blood. The symptoms are described as constant. Modifying factors: The symptoms are alleviated by nothing, the symptoms are aggravated by nothing. Severity of pain: At its worst the pain was no pain, in the emergency department the pain is unchanged. Patient states that she has been constipated for 3 days and has had some rectal pain. She took Dulcolax without improvement.. 20:53 Patient reports tripping and falling at home 3 days ago when walking around in the mh7 dark. Denies any symptoms prior to falling. She hit her face on carpeted floor. Denies any LOC.. 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 - Social history:: Smoking status: Patient denies any tobacco usage or history of. ROS: 20:30 Constitutional: Negative for fever, chills, and weight loss, Eyes: Negative for injury, mh7 pain, redness, and discharge, ENT: Negative for injury, pain, and discharge, Neck: Negative for injury, pain, and swelling, Cardiovascular: Negative for chest pain, palpitations, and edema, Respiratory: Negative for shortness of breath, cough, wheezing, and pleuritic chest pain, Back: Negative for injury and pain, : Negative for injury, bleeding, discharge, and swelling, MS/Extremity: Negative for injury and deformity, Skin: Negative for injury, rash, and discoloration, Neuro: Negative for headache, weakness, numbness, tingling, and seizure, Psych: Negative for depression, anxiety, suicide ideation, homicidal ideation, and hallucinations, Allergy/Immunology: Negative for hives, rash, and allergies, Endocrine: Negative for neck swelling, polydipsia, polyuria, polyphagia, and marked weight changes, Hematologic/Lymphatic: Negative for swollen nodes, abnormal bleeding, and unusual bruising. Exam: 20:30 Back: No spinal tenderness. No costovertebral tenderness. Full range of motion. mh7 Skin: Warm, dry with normal turgor. Normal color with no rashes, no lesions, and no evidence of cellulitis. MS/ Extremity: Pulses equal, no cyanosis. Neurovascular intact. Full, normal range of motion. Neuro: Awake and alert, GCS 15, oriented to person, place, time, and situation. Cranial nerves II-XII grossly intact. Motor strength 5/5 in all extremities. Sensory grossly intact. Cerebellar exam normal. Normal gait. Psych: Awake, alert, with orientation to person, place and time. Behavior, mood, and affect are within normal limits. 20:30 Constitutional: This is a well developed, well nourished patient who is awake, alert, and in no acute distress. Eyes: Pupils equal round and reactive to light, extra-ocular motions intact. Lids and lashes normal. Conjunctiva and sclera are non-icteric and not injected. Cornea within normal limits. Periorbital areas with no swelling, redness, or edema. Neck: Trachea midline, no thyromegaly or masses palpated, and no cervical lymphadenopathy. Supple, full range of motion without nuchal rigidity, or vertebral point tenderness. No Meningismus. Chest/axilla: Normal chest wall appearance and motion. Nontender with no deformity. No lesions are appreciated. Cardiovascular: Regular rate and rhythm with a normal S1 and S2. No gallops, murmurs, or rubs. Normal PMI, no JVD. No pulse deficits. Respiratory: Lungs have equal breath sounds bilaterally, clear to auscultation and percussion. No rales, rhonchi or wheezes noted. No increased work of breathing, no retractions or nasal flaring. Abdomen/GI: Soft, non-tender, with normal bowel sounds. No distension or tympany. No guarding or rebound. No evidence of tenderness throughout. 20:30 Abdomen/GI: Rectal exam: rectal tone normal, Stool: brown, guaiac negative, hemorrhoid(s), are not appreciated, mass, is not appreciated, swelling, is not appreciated, tenderness, is not appreciated. 20:53 Head/face: Noted is abrasion(s), that are mild, of the forehead and right cheek, mh7 ecchymosis, that is mild, of the right cheek. Vital Signs: 17:22 BP 152 / 72; Pulse 95; Resp 16 S; Temp 97.6(TE); Pulse Ox 100% on R/A; Weight 58.97 kg ca1 (R); Height 5 ft. 0 in. (152.40 cm) (R); Pain 9/10; 20:30 BP 147 / 75; Pulse 88; Resp 16; Pulse Ox 98% on R/A; zb 22:00 BP 144 / 76; Pulse 83; Resp 16; Pulse Ox 98% on R/A; zb 23:00 BP 134 / 71; Pulse 89; Resp 16; Pulse Ox 98% on R/A; zb 23:57 BP 134 / 73; Pulse 91; Resp 16; Pulse Ox 100% on R/A; zb 12/27 00:55 BP 124 / 70; Pulse 87; Resp 16; Pulse Ox 99% ; ss 01:30 BP 132 / 87; Pulse 88; Resp 18; Pulse Ox 99% on R/A; Pain 0/10; lp1 12/26 17:22 Body Mass Index 25.39 (58.97 kg, 152.40 cm) ca1 Procedures: 01:39 Fecal disimpaction: digital disimpaction was performed, with a large amount of stool mh7 expressed. The patient tolerated the intervention well. MDM: 01:39 Differential diagnosis: bowel obstruction, GI Bleed, pancreatitis, urinary tract mh7 infection, Constipation. Data reviewed: vital signs, nurses notes, old medical records, lab test result(s), amylase and lipase, CBC, electrolytes, urinalysis, EKG, radiologic studies, CT scan. Data interpreted: Pulse oximetry: on room air is 99 %. Interpretation: normal. Counseling: I had a detailed discussion with the patient and/or guardian regarding: the historical points, exam findings, and any diagnostic results supporting the discharge/admit diagnosis, lab results, radiology results, to return to the emergency department if symptoms worsen or persist or if there are any questions or concerns that arise at home. Response to treatment: the patient's symptoms have resolved after treatment, the patient's blood pressure is in an acceptable range, mental status has returned to baseline, the patient no longer shows bradycardia, the patient is not short of breath, the patient is not tachycardic, the patient's pain is gone, the patient's temperature has normalized. 01:44 Patient medically screened. [facility] 12/26 20:24 Order name: Basic Metabolic Panel; Complete Time: 21:24 [facility] 12/26 20:24 Order name: CBC with Diff; Complete Time: 20:52 [facility] 12/26 20:24 Order name: Hepatic Function; Complete Time: 21:24 [facility] 12/26 20:24 Order name: Lipase; Complete Time: 21:24 [facility] 12/26 21:49 Order name: Urine Dipstick--Ancillary (enter results) 3 12/26 21:50 Order name: Urine Dipstick-Ancillary; Complete Time: 23:18 EDMS 12/26 20:24 Order name: CT Abd/Pelvis - Without Contrast; Complete Time: 21:24 [facility] 12/26 20:52 Order name: CT Head Brain wo Cont; Complete Time: 21:24 [facility] 12/26 22:48 Order name: Urine Culture [facility] 12/27 00:12 Order name: Procalcitonin [facility] 12/27 00:12 Order name: Lactate; Complete Time: 01:33 [facility] 12/27 00:12 Order name: CBC with Diff; Complete Time: 01:15 [facility] 12/27 00:12 Order name: Amylase, Serum; Complete Time: 01:16 [facility] 12/27 00:12 Order name: Lipase; Complete Time: 01:16 [facility] 12/26 20:24 Order name: IV Saline Lock; Complete Time: 20:41 [facility] 12/26 20:24 Order name: Labs collected and sent; Complete Time: 20:41 [facility] 12/26 20:24 Order name: Urine Dipstick-Ancillary (obtain specimen); Complete Time: 21:45 [facility] 12/26 20:52 Order name: CT Facial Bones W/O Con; Complete Time: 21:24 [facility] Administered Medications: 12/26 21:48 Drug: NS 0.9% 500 ml Route: IV; Rate: bolus; Site: left antecubital; zb 22:10 Follow up: Response: No adverse reaction; IV Status: Completed infusion; IV Intake: zb 500ml 23:20 Drug: Rocephin - (cefTRIAXone) 1 grams Route: IVPB; Infused Over: 30 mins; Site: left zb antecubital; 23:54 Follow up: Response: No adverse reaction; IV Status: Completed infusion; IV Intake: 50mlzb 23:33 Drug: Magnesium Citrate Liquid 300 ml Route: PO; 12/27 00:54 Follow up: Response: No adverse reaction 12/26 23:54 Not Given (Patient Refused): Fleet Enema 133 ml NE once zb Disposition: 12/27/20 01:44 Discharged to Home. Impression: Constipation, Urinary tract infection, site not specified. - Condition is Stable. - Discharge Instructions: Constipation, Adult, [id number], Urinary Tract Infection, Adult, [id number]. - Prescriptions for Lactulose 10 gram/15 mL Oral Solution - take 30 milliliters by ORAL route once daily As needed; 150 milliliter. Cipro 500 mg Oral Tablet - take 1 tablet by ORAL route every 12 hours for 10 days; 20 tablet. Dulcolax 10 mg Rectal Suppository - insert 1 suppository by RECTAL route once daily As needed; 7 suppository. - Medication Reconciliation Form, Thank You Letter, Antibiotic Education, Prescription Opioid Use form. - Follow up: Private Physician; When: 1 - 2 days; Reason: Worsening of condition, Recheck today's complaints, Continuance of care, Re-evaluation by your physician. - Problem is an acute exacerbation. - Symptoms have improved. Signatures: Dispatcher [employer] EDMS Gayle Goff RN RN lp1 Barbara Thomas RN RN ca1 Rishi Mckoy MD MD 7 Aga Copeland RN RN zb Smirch, Shelby RN ss Corrections: (The following items were deleted from the chart) 20:55 20:30 Constitutional: This is a well developed, well nourished patient who is awake, mh7 alert, and in no acute distress. Head/Face: Normocephalic, atraumatic. Eyes: Pupils equal round and reactive to light, extra-ocular motions intact. Lids and lashes normal. Conjunctiva and sclera are non-icteric and not injected. Cornea within normal limits. Periorbital areas with no swelling, redness, or edema. Neck: Trachea midline, no thyromegaly or masses palpated, and no cervical lymphadenopathy. Supple, full range of motion without nuchal rigidity, or vertebral point tenderness. No Meningismus. Chest/axilla: Normal chest wall appearance and motion. Nontender with no deformity. No lesions are appreciated. Cardiovascular: Regular rate and rhythm with a normal S1 and S2. No gallops, murmurs, or rubs. Normal PMI, no JVD. No pulse deficits. Respiratory: Lungs have equal breath sounds bilaterally, clear to auscultation and percussion. No rales, rhonchi or wheezes noted. No increased work of breathing, no retractions or nasal flaring. Abdomen/GI: Soft, non-tender, with normal bowel sounds. No distension or tympany. No guarding or rebound. No evidence of tenderness throughout. 7 12/27 01:57 01:44 12/27/2020 01:44 Discharged to Home. Impression: Constipation; Urinary tract lp1 infection, site not specified. Condition is Stable. Forms are Medication Reconciliation Form, Thank You Letter, Antibiotic Education, Prescription Opioid Use. Follow up: Private Physician; When: 1 - 2 days; Reason: Worsening of condition, Recheck today's complaints, Continuance of care, Re-evaluation by your physician. Problem is an acute exacerbation. Symptoms have improved. 7
--- NOTE | 2020-12-27 01:44 | ER ---
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 Reports abdominal pain at the umbilical area. Coronavirus screen: Client denies travel out of the [place] in the last 14 days. At this time, the client does not indicate any symptoms associated with coronavirus-19. Ebola Screen: Patient negative for fever greater than or equal to 101.5 degrees Fahrenheit, and additional compatible Ebola Virus Disease symptoms Patient denies exposure to infectious person. Patient denies travel to an Ebola-affected area in the 21 days before illness onset. No symptoms or risks identified at this time. Initial Sepsis Screen: Does the patient meet any 2 criteria? No. Patient's initial sepsis screen is negative. Does the patient have a suspected source of infection? No. Patient's initial sepsis screen is negative. Risk Assessment: Do you want to hurt yourself or someone else? Patient reports no desire to harm self or others. Onset of symptoms was December 26, 2020. 17:22 Method Of Arrival: Ambulatory ca1 17:22 Acuity: ELI 3 ca1 Historical: - Allergies: 17:29 "adult aspirin"; ca1 17:29 Coumadin; ca1 - Home Meds: 17:29 aspirin 81 mg Oral chew 1 tab once daily [Active]; irbesartan 150 mg Oral tab 1 tab ca1 once daily [Active]; Plavix 75 mg Oral tab 1 tab once daily [Active]; simvastatin 10 mg Oral tab 1 tab once daily [Active]; levothyroxine 88 mcg tab 1 tab once daily [Active]; nitrofurantoin macrocrystal 50 mg Oral cap 1 cap once daily [Active]; torsemide 20 mg Oral tab 1 tab once daily [Active]; - PMHx: 17:29 CVA; High Cholesterol; Hypothyroidism; ca1 - PSHx: 17:29 Kidney stents; Hysterectomy; ca1 - Immunization history:: Pneumococcal vaccine is up to date, Flu vaccine is not up to date. - Social history:: Smoking status: Patient denies any tobacco usage or history of. Screenin:15 Abuse screen: Denies threats or abuse. Denies injuries from another. Nutritional zb screening: No deficits noted. Tuberculosis screening: No symptoms or risk factors identified. Fall Risk Fall in past 12 months (25 points). Secondary diagnosis (15 points) CVA, IV access (20 points). Ambulatory Aid- None/Bed Rest/Nurse Assist (0 pts). Gait- Normal/Bed Rest/Wheelchair (0 pts) Mental Status- Oriented to own ability (0 pts). Total Balderrama Fall Scale indicates High Risk Score (45 or more points). Fall prevention measures have been instituted. Side Rails Up X 2 Placed Close to Nursing Station Frequent Obs/Assessments Occuring Family Present and informed to notify staff if the need to leave the bedside As available patient and family educated on Fall Prevention Program and Strategies. Assessment: 20:15 General: Appears in no apparent distress. uncomfortable, Behavior is cooperative, zb appropriate for age. Pain: Complains of pain in LLQ and supra-umbilia pain. Neuro: Level of Consciousness is awake, alert, obeys commands, Oriented to person, place, time. Cardiovascular: Patient's skin is warm and dry. Respiratory: Airway is patent Respiratory effort is even, unlabored, Respiratory pattern is regular, symmetrical. GI: Abdomen is round non-distended, Bowel sounds present X 4 quads. Abd is soft and non tender in right upper quadrant, left upper quadrant and right lower quadrant Mass noted in left lower quadrant Reports lower abdominal pain, constipation, incontinence, Patient currently denies nausea. : Ivy in place to gravity drainage Urine is yellow. EENT: Eyes bruising noted R eye . bruised noted on bridge of nose as well. . Derm: Bruising that is dark purple, yellow, on right eye and right cheek and forehead. Musculoskeletal: Range of motion: intact in all extremities. 21:00 Reassessment: patient in CT. zb 21:30 Reassessment: Patient appears in no apparent distress at this time. Patient and/or zb family updated on plan of care and expected duration. Pain level reassessed. Patient is alert, oriented x 3, equal unlabored respirations, skin warm/dry/pink. pt awaiting results. no changes at this time. 22:13 Reassessment: Patient appears in no apparent distress at this time. Patient and/or zb family updated on plan of care and expected duration. Pain level reassessed. Patient is alert, oriented x 3, equal unlabored respirations, skin warm/dry/pink. spoke to patient . notified of patients care. number is [phone]. 23:00 Reassessment: Patient appears in no apparent distress at this time. Patient and/or zb family updated on plan of care and expected duration. Pain level reassessed. Patient is alert, oriented x 3, equal unlabored respirations, skin warm/dry/pink. assisted in removal of impaction, patient cleaned up. new diaper applied and repositioned comfortably. 23:50 Reassessment: Patient appears in no apparent distress at this time. patient denied zb enema notified ECP. 12/27 00:31 Reassessment: Patient appears in no apparent distress at this time. Patient and/or ss family updated on plan of care and expected duration. Pain level reassessed. Patient is alert, oriented x 3, equal unlabored respirations, skin warm/dry/pink. Pt is smiling. States that she feels much better. Awaiting for repeat labs to result. Patient denies pain at this time. Patient states feeling better. Patient states symptoms have improved. 00:55 Reassessment: PT states that she is ready to go home since she is feeling much better. ss PT verbalizes understanding that we are still awaiting for the results for the repeat lab work. 01:43 Reassessment: Patient appears in no apparent distress at this time. Patient lp1 demonstrates understanding of discussion with Dr. Mckoy, reports readiness for discharge home; Mr. Llamas notified of patient for discharge. 01:44 Reassessment: Stat-lock for ivy catheter applied to right leg; assisted patient with lp1 getting dressed. Vital Signs: 12/26 17:22 BP 152 / 72; Pulse 95; Resp 16 S; Temp 97.6(TE); Pulse Ox 100% on R/A; Weight 58.97 kg ca1 (R); Height 5 ft. 0 in. (152.40 cm) (R); Pain 9/10; 20:30 BP 147 / 75; Pulse 88; Resp 16; Pulse Ox 98% on R/A; zb 22:00 BP 144 / 76; Pulse 83; Resp 16; Pulse Ox 98% on R/A; zb 23:00 BP 134 / 71; Pulse 89; Resp 16; Pulse Ox 98% on R/A; zb 23:57 BP 134 / 73; Pulse 91; Resp 16; Pulse Ox 100% on R/A; zb 12/27 00:55 BP 124 / 70; Pulse 87; Resp 16; Pulse Ox 99% ; ss 01:30 BP 132 / 87; Pulse 88; Resp 18; Pulse Ox 99% on R/A; Pain 0/10; lp1 12/26 17:22 Body Mass Index 25.39 (58.97 kg, 152.40 cm) ca1 ED Course: 12/26 17:05 Patient arrived in ED. ag5 17:27 Triage completed. ca1 17:29 Arm band placed on right wrist. ca1 19:02 Rishi Mckoy MD is Attending Physician. mh7 20:10 Rishi Mckoy MD is Attending Physician. 7 20:11 Raina Madera, ELLE is Primary Nurse. ss 20:41 Inserted saline lock: 20 gauge in left antecubital area, using aseptic technique. Blood dh4 collected. 20:59 CT Head Brain wo Cont In Process Unspecified. EDMS 20:59 CT Facial Bones W/O Con In Process Unspecified. EDMS 21:07 CT Abd/Pelvis - Without Contrast In Process Unspecified. EDMS 21:17 Patient has correct armband on for positive identification. Pulse ox on. NIBP on. Door zb closed. Noise minimized. 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 zb 23:50 Aga Copeland, ELLE is Primary Nurse. zb 23:55 Urine Dipstick--Ancillary (enter results) Sent. zb 12/27 00:27 Repeat lab(s) drawn. by me, sent to lab. ss 01:44 IV discontinued, No redness/swelling at site. Pressure dressing applied. lp1 Administered Medications: 12/26 21:48 Drug: NS 0.9% 500 ml Route: IV; Rate: bolus; Site: left antecubital; zb 22:10 Follow up: Response: No adverse reaction; IV Status: Completed infusion; IV Intake: zb 500ml 23:20 Drug: Rocephin - (cefTRIAXone) 1 grams Route: IVPB; Infused Over: 30 mins; Site: left zb antecubital; 23:54 Follow up: Response: No adverse reaction; IV Status: Completed infusion; IV Intake: 50mlzb 23:33 Drug: Magnesium Citrate Liquid 300 ml Route: PO; zb 12/27 00:54 Follow up: Response: No adverse reaction 12/26 23:54 Not Given (Patient Refused): Fleet Enema 133 ml SD once zb Intake: 22:10 IV: 500ml; Total: 500ml. zb 23:54 IV: 50ml; Total: 550ml. zb Outcome: 12/27 01:44 Discharge ordered by . 7 01:45 Discharged to home via wheelchair, with family. 1 01:45 Condition: good 01:45 Discharge instructions given to patient, family, Instructed on discharge instructions, follow up and referral plans. medication usage, Demonstrated understanding of instructions, follow-up care, medications, Prescriptions given X 3. 01:57 Patient left the ED. lp1 Addendum: 12/29/2020 10:40 Addendum: Culture Results: Positive urine culture. No further action required. Bacteria a a5 sensitive to prescribed antibiotic. Signatures: Dispatcher [employer] EDMS Silvina Alansi RN RN aa5 Raina Madera RN RN ss Pena, Laura, RN RN lp1 Barbara Thomas RN RN ca1 Gaskin, Ajare 5 Go Marie 4 Rishi Mckyo MD MD mh7 Brown, Zipporah, RN RN zb Corrections: (The following items were deleted from the chart) 12/26 22:14 21:00 BP 147 / 75; Pulse 88bpm; Resp 16bpm; Pulse Ox 98% RA; zb zb 22:15 21:15 Reassessment: Patient appears in no apparent distress at this time. Patient zb and/or family updated on plan of care and expected duration. Pain level reassessed. Patient is alert, oriented x 3, equal unlabored respirations, skin warm/dry/pink. pt awaiting results. no changes at this time. zb
[2020-12-27 02:14] VITALS: TEMP 97.6
[2020-12-27 02:21] VITALS: BP 124/70; O2SAT 99
== END 2020-12-27 01:57 | disposition home or self-care (01) ==
LOC: ER 17:03
DX: K59.00 Constipation, unspecified (principal); N39.0 Urinary tract infection, site not specified; S00.81XA Abrasion of other part of head, initial encounter; W01.0XXA Fall on same level from slipping, tripping and stumbling without subsequent striking against object, initial encounter; Y93.01 Activity, walking, marching and hiking; Y92.009 Unspecified place in unspecified non-institutional (private) residence as the place of occurrence of the external cause; Z79.01 Long term (current) use of anticoagulants; Z79.82 Long term (current) use of aspirin; Z88.6 Allergy status to analgesic agent; Z88.8 Allergy status to other drugs, medicaments and biological substances; Z86.73 Personal history of transient ischemic attack (TIA), and cerebral infarction without residual deficits; E78.00 Pure hypercholesterolemia, unspecified; E03.9 Hypothyroidism, unspecified
CPT/HCPCS: 93005; 87088; 85025 ×2; 87086; 80048; 36415; 82150; 80076; 83605; 81003; 83690 ×2; 84145; 70450; 70486; 76377; 74176; J0696; J7040; 87077; 87186; 96365; 99284

== ENCOUNTER 2021-01-18 08:31 | Day surgery (SDC) | payer OTHER ==
[2021-01-13 16:34] LABS: Protime INR 0.89
[2021-01-13 16:37] LABS: Absolute Lymphocytes (CBC) 2.3 K/uL (0.7-4.9); Basophils % 1.3 % (0-1.3); Hematocrit 35.7 % (36.0-45.0); Lymphocytes % 22.3 % (15.3-44.8); MPV 7.6 fL (7.6-11.3); RBC Red Blood Cell Count 3.98 M/uL (3.86-4.86)
[2021-01-13 16:45] LABS: Potassium 3.6 mmol/L (3.5-5.1)
--- NOTE | 2021-01-15 08:34 | EKG ---
Test Date: 2021-01-13 Test Time: 15:52:37 Ventilation Equipment Tender: JEZ MEASUREMENT RESULTS: Intervals: Rate: 72 TX: 166 QRSD: 80 QT: 410 QTc: 448 Covel: P: 54 TX: 166 QRS: -28 T: 29 INTERPRETIVE STATEMENTS: Normal sinus rhythm with sinus arrhythmia Normal ECG Compared to ECG 12/26/2020 21:30:32 No significant changes Electronically Signed On 01-15-21 08:29:38 FARROWING WORKER by Librado Hubbard
[~2021-01-18 08:31] MED LIST: AMPICILLIN SODIUM 2 GM in NA CHLORIDE 0.9% 100 ML IVPB SCH; GENTAMICIN 100 MG/100 ML BAG 100 ML IV SCH
[2021-01-18] MEDS ORDERED: Ringers Lactate 1,000 ML IV ONE (09:18)
[2021-01-18] MEDS ORDERED: propofoL 200 MG/20 ML VIAL IV ONE (10:03)
[2021-01-18] MEDS ORDERED: FENTANYL CITR 100 MCG/2 ML ONE (10:03)
[2021-01-18] MEDS ORDERED: MIDAZOLAM HCL 2 MG/2 ML INJ ONE (10:03)
[2021-01-18] MEDS ORDERED: LIDOCAINE 2% MPF 5 ML VIAL ONE (10:04)
[2021-01-18] MEDS ORDERED: ONDANSETRON 4 MG/2 ML VIAL ONE (10:04)
[2021-01-18] MEDS ORDERED: EPHEDRINE SULF 50 MG/ML VIAL ONE (11:24)
[2021-01-18] MEDS ORDERED: dexAMETHasone 10 MG/ML VIAL ONE (11:50)
--- NOTE | 2021-01-18 13:21 | RAD REPORT ---
EXAM DESCRIPTION: RAD - Urethrocystogrphy Retrograde - 01/18/2021 1:13 pm CLINICAL HISTORY: STENT PLACEMENT, STENT EXCHANGE COMPARISON: No comparisons FINDINGS: Total fluoro time: 53 seconds
[2021-01-18 13:45] VITALS: BP 149/79; TEMP 97.3; O2SAT 94
--- NOTE | 2021-01-18 14:16 | OP ---
Surgeon: PEGGY HILTON Preoperative Diagnoses: 1.Pelvic mass. 2.Bilateral hydronephrosis. 3.Indwelling and chronically exchanged left ureteral stent. Postoperative Diagnoses: 1.Pelvic mass. 2.Bilateral hydronephrosis. 3.Indwelling and chronically exchanged left ureteral stent. Principle Procedures: 1.Cystoscopy, left ureteral stent exchange. 2.Right ureteral stent exchange. 3.Bilateral retrograde pyelographies. Indication For Procedure: Mrs. Llamas presented to [facility] with a pelvic mass, undergoing c hemotherapy. Despite her ongoing treatment, she had obstructive uropathy with left-sided hydronephro sis and a left-sided ureteral stent indwelling. She also had an episode of urinary retention prior t o her presentation with in where a urethral Hernandes catheter was placed due to large volume. Despite a n attempt at a voiding trial conducted in the office, the patient was unsuccessful and the urethral F oley catheter had to be reinserted. A renal ultrasound was obtained in followup and revealed the pre sence of bilateral pelvocaliectasis/hydronephrosis. As a result, she was due for her left ureteral s tent exchange, which had been done chronically for several years, and I recommended bilateral uretera l stent placements along with retrograde pyelogram studies to assess for any intrinsic obstruction. It was clearly suspected to be due to extrinsic compression due to a pelvic mass. Procedure In Detail: The patient was consented in the preoperative holding area before being transfe rred to the operative suite where general anesthesia was induced. She was given ampicillin and genta micin IV antimicrobial prophylaxis and pneumo boots were provided for DVT prophylaxis. She was place d in the lithotomy position, padded and secured to the table appropriately. Her genitalia were prepp ed using Hibiclens and she was draped in standard fashion. The case was begun using a 22-Syrian rigi d cystoscope to traverse the urethra and into her bladder with ease. There were subtle erythematous regions posteriorly consistent with the indwelling catheter and associated trauma. The urine was oth erwise essentially clear. The stent was noted to emanate from the left ureteral orifice and was non- encrusted. As a result, using an alligator grasper, I grasped the coil of the stent and delivered it via the meatus leaving the tip of the stent in the mid proximal ureter. A Sensor wire was passed vi a the stent and did coil within the putative collecting system on the left side. I left the wire in place, which was navigated through a degree of some proximal ureteral tortuosity in order to get it i nto the renal pelvis appropriately. The tortuosity was predominantly at the UPJ on the left side. I then replaced the cystoscope and used a 5-Syrian ureteral access catheter to perform a retrograde py elogram. Left retrograde pyelography: Using a 70:30 mixture of Omnipaque and saline, contrast was injected via the 5-Syrian ureteral access catheter lumen and did propagate up a dilated ureter to a point of obstruction at the UPJ where ther e was tortuosity. Contrast did emanate beyond that point of tortuosity and enter the renal pelvis, w hich was markedly dilated with significant pelviectasis as well as caliectasis. I thus passed a 5-Fr ench ureteral access catheter over the indwelling Sensor wire into the collecting system and aspirate d several mL of the fluid from within. I left that to drainage while I turned my attention to the ri t side. Right retrograde pyelography: Using a 5-Syrian ureteral access catheter inserted into the ureteral orifice on the right side, I inj ected a 70:30 mixture of Omnipaque and saline via the 5-Syrian ureteral access catheter. It did prop agate again up a relatively dilated ureter that was markedly tortuous along the entirety of the mid a nd proximal ureter before reaching a point of similar UPJ appearing obstruction and entry into a very dilated renal pelvis with significant caliectasis. There was some difficulty navigating the wire be yond the point of obstruction at the UPJ; so I advanced the 5-Syrian ureteral access catheter to that point and utilized a Sensor wire to navigate beyond the point of obstruction and coil the wire withi n the upper pole of the kidney. Similar to the other side, I passed the 5-Syrian ureteral access cat heter over the wire into the upper pole of the kidney and renal pelvis and did aspirate greater than 50 mL of fluid from within the kidney on the right side. I then replaced the Sensor wire on the [facility] t side and back-loaded the cystoscope over it in order to place a 6-Syrian by 24 cm double-J right-si ded ureteral stent with a coil observed fluoroscopically within the renal pelvis and 1 cystoscopicall y within the bladder. I then turned my attention back to the left side, which was more decompressed at this point and remov ed the 5-Syrian ureteral access catheter after placing a Sensor wire back into the upper pole of the kidney on the left. At this time, I utilized a 7-Syrian by 22 cm double-J ureteral stent which was p assed under direct vision via the cystoscope and coiled within the renal pelvis as observed fluorosco pically with an additional coil observed cystoscopically within the bladder. I then replaced an 18-F rench urethral Hernandes catheter into her bladder with ease with 10 mL of sterile water placed into the balloon. The bladder was then decompressed and connected to a floor bag and the patient was taken ou t of the lithotomy position. She was then transferred to a stretcher and then to the recovery room i n good condition. Complications: None. Discharge Disposition: She should follow up in the Urology Clinic for voiding trial at the time of h er next scheduled catheter exchange in 4-6 weeks. She should continue the daily Macrobid 50 mg proph ylaxis to minimize her risk of urosepsis associated with the indwelling Hernandes catheter. Ultimately, she will require urodynamic evaluation and should be scheduled accordingly to decipher the functional issues associated with her urinary retention. Subsequent followup should be established with me aft er completion of urodynamics or an approximately 4 months in preparation for bilateral ureteral stent exchange in 4-6 months from today. SOBEIDA/TED Voice ID: [id number] Report ID: [id number]
== END 2021-01-18 13:20 | disposition home or self-care (01) ==
LOC: OR 08:31
PROVIDERS: ATTEND Urology
PROC: 0TP98DZ Removal of Intraluminal Device from Ureter, Via Natural or Artificial Opening Endoscopic (ICD-10-PCS; 2021-01-18)
PROC: 0T788DZ Dilation of Bilateral Ureters with Intraluminal Device, Via Natural or Artificial Opening Endoscopic (ICD-10-PCS; principal; 2021-01-18 10:00)
DX: R33.9 Retention of urine, unspecified (principal); N13.9 Obstructive and reflux uropathy, unspecified; N36.44 Muscular disorders of urethra; N13.30 Unspecified hydronephrosis; N18.9 Chronic kidney disease, unspecified; Z20.822 Contact with and (suspected) exposure to COVID-19; N94.9 Unspecified condition associated with female genital organs and menstrual cycle
CPT/HCPCS: 52332; 93005; 87088; 85025; 87086; 80048; 36415; 85610; 74450; 51610; U0003; J2704; J2250; J3010; J1100; J1580; J7120; J2405; J0290